=== PATIENT | male | born 1950 | race Caucasian/White ===

== ENCOUNTER → 2018-09-29 08:00 | Outpatient (REF) | payer MEDICARE, MEDICAID, SELFPAY ==
[2018-09-29 08:29] LABS: Add Manual Diff / Slide Review NO; Basophils Absolute Auto 100 /uL (0-100); Basophils Percent Auto 0.4 % (0-2); Eosinophils Absolute Auto 100 /uL (0-450); Eosinophils Percent Auto 0.4 % (2-4); Hematocrit 34.5 % (41-53); Hemoglobin 11.2 g/dL (13.5-17.5); Lymphocytes Absolute Auto 2300 /uL (1100-4500); Lymphocytes Percent Auto 12.5 % (25-40); Mean Corpuscular HGB Conc 32.6 % (30-36); Mean Corpuscular Hemoglobin 31.3 PG (26-34); Mean Corpuscular Volume 96.2 fL (80-100); Monocytes Absolute Auto 1600 /uL (0-900); Monocytes Percent Auto 8.6 % (3-14); Neutrophils Absolute Auto 14600 /uL (1500-7000); Neutrophils Percent Auto 78.1 % (50-75); Platelet Count 266 X10^3/uL (150-400); Red Blood Cell Count 3.58 X10^6/uL (4.5-5.9); Red Cell Distribution Width 15.4 % (11.6-14.8); White Blood Cell Count 18.7 X10^3/uL (4.5-11.0)
[2018-09-29 09:05] LABS: Prothrombin Time 11.1 SECONDS (10.1-12.7)
[2018-09-29 09:14] LABS: Alanine Aminotransferase 30 IU/L (21-72); Albumin 3.2 g/dL (3.5-5.0); Albumin Globulin Ratio 1.1 (1.0-2.8); Alkaline Phosphatase 77 U/L (38-126); Aspartate Aminotransferase 14 IU/L (17-59); Bilirubin Total 0.3 mg/dL (0.2-1.3); Blood Urea Nitrogen 12 mg/dL (9-20); Calcium 8.7 mg/dL (8.4-10.2); Carbon Dioxide 38 mmol/L (22-32); Chloride 96 mmol/L (98-107); Estimated Glomerular Filt Rate > 60.0 mL/min (>60); Globulin 2.9 g/dL (1.7-4.1); Glucose 141 mg/dL (80-110); HEMOLYSIS < 15 (0-50); Magnesium 1.5 mg/dL (1.6-2.3); Potassium 3.9 mmol/L (3.4-5.1); Sodium 138 mmol/L (137-145); Total Protein 6.1 g/dL (6.3-8.2)
== END ==
LOC: LAB 08:00
PROVIDERS: Visit Provider Nurse Practitioner Family
DX: K70.30 Alcoholic cirrhosis of liver without ascites (principal); J44.9 Chronic obstructive pulmonary disease, unspecified; Z79.899 Other long term (current) drug therapy
CPT/HCPCS: 36415; 80053; 83735; 85025; 85610

== ENCOUNTER 2018-09-30 10:12 | Inpatient (IN) | payer OTHER, MEDICAID, SELFPAY ==
[2018-09-30] VITALS (14 sets, daily range): BP systolic 114–146; BP diastolic 63–108; PULSE 82–98; RESP 10–30; TEMP 36.2–37.1; O2SAT 90–93; BMI 14.3
--- NOTE | 2018-09-30 10:24 | ED.SOB ---
HPI - SOB/Dyspnea General Chief Complaint: Shortness of Breath/Dyspnea Stated Complaint: Difficulty Breathing Time Seen by Provider: 09/30/18 10:22 Source: patient and EMS Mode of arrival: EMS Limitations: other (Difficulty breathing) History of Present Illness This is a 68-year-old male comes to the emergency department with difficulty breathing. Per EMS patient has had trouble breathing for the last several days but woke up this morning with much more difficulty. He was 82% at the [facility]. Patient states he is normally low in the 80s but this is quite a bit lower than normal. He was gurgly and had very wet cough. They placed him on BiPAP his breath sounds improved significantly and his oxygenation improved almost immediately. Patient has not had any fevers. He is unsure if he has had any orthopnea. He has noted that he has been short of breath. He has had a little bit of chest discomfort. Patient has not been having any vomiting or nausea. He has had some diarrhea recently. He has not had any swelling in his extremities. He has known COPD, states that he does not normally use oxygen. He has not been intubated in the past. He denies any cardiac history. There is some difficulty with history eyes patient on BiPAP still short of breath. He is feeling claustrophobic and sort of anxious from the BiPAP. Related Data Home Medications Medication Instructions Recorded Confirmed acetaminophen 650 mg PO Q4H PRN 09/30/18 09/30/18 albuterol sulfate 2 puff INHALATION Q4-6H PRN 09/30/18 09/30/18 aspirin 81 mg PO DAILY 09/30/18 09/30/18 atorvastatin 40 mg PO BEDTIME 09/30/18 09/30/18 bisacodyl 10 mg TX DAILY 09/30/18 09/30/18 cholecalciferol (vitamin D3) 2,000 unit PO DAILY 09/30/18 09/30/18 [Vitamin D3] diltiazem HCl 180 mg PO BID 09/30/18 09/30/18 doxazosin 4 mg PO DAILY 09/30/18 09/30/18 fludrocortisone 0.1 mg PO DAILY 09/30/18 09/30/18 ipratropium-albuterol 3 ml INHALATION Q4H PRN 09/30/18 09/30/18 losartan 25 mg PO DAILY 09/30/18 09/30/18 magnesium hydroxide [Milk of 30 ml PO BEDTIME PRN 09/30/18 09/30/18 Magnesia] mometasone-formoterol [Dulera] 2 puff INHALATION BID 09/30/18 09/30/18 morphine 15 mg PO Q8H 09/30/18 09/30/18 multivitamin 1 tab PO DAILY 09/30/18 09/30/18 pantoprazole 40 mg PO DAILY 09/30/18 09/30/18 paroxetine HCl [Paxil] 20 mg PO DAILY 09/30/18 09/30/18 sodium phosphates [Fleet Enema] 118 ml TX DAILY PRN 09/30/18 09/30/18 tamsulosin 0.4 mg PO DAILY 09/30/18 09/30/18 tiotropium bromide [Spiriva with 1 cap INHALATION DAILY 09/30/18 09/30/18 HandiHaler] Allergies Allergy/AdvReac Type Severity Reaction Status Date / Time No Known Drug Allergies Allergy Verified 09/30/18 10:40 Review of Systems Review of Systems ROS Unobtainable: All systems reviewed & are unremarkable except as noted in HPI and below Constitutional Denies chills and Denies fever(s) ENT Ears, Nose, Mouth, and Throat: Denies change in voice, Denies nasal congestion, Denies neck pain and Denies sore throat Cardiovascular Denies chest pain, Denies irregular heart rhythm, Denies leg edema, Denies lightheadedness, Denies palpitations, Reports dyspnea, Reports dyspnea on exertion and Denies orthopnea Respiratory Denies change in phlegm color, Reports chest congestion, Reports cough, Denies hemoptysis, Reports dyspnea and Reports dyspnea on exertion Gastrointestinal Gastrointestinal: Denies abdominal pain, Denies melena, Denies hematochezia, Denies change in bowel habits, Reports diarrhea, Denies nausea and Denies vomiting Genitourinary Denies hematuria, Denies flank pain, Denies urinary incontinence and Denies urinary urgency Musculoskeletal Denies neck pain Endocrine Denies palpitations PFSH Medical History Alcohol abuse (Acute) Alcoholic cirrhosis of liver without ascites (Acute) Anemia (Acute) Atrial fibrillation (Acute) BPH (benign prostatic hyperplasia) (Acute) COPD (chronic obstructive pulmonary disease) (Acute) Cardiomyopathy (Acute) Chronic pain (Acute) Constipation (Acute) Depression (Acute) Femur fracture, right (Acute) Hyperlipidemia (Acute) Hypertension (Acute) Osteoarthritis (Acute) Peripheral vascular disease (Acute) Social History Smoking Status: Current every day smoker alcohol intake: current Social History Smoking Status: Current every day smoker alcohol intake: current Exam Narrative Exam Narrative: GEN: Thin male, alert and oriented x 3, patient appears to be in severe distress. HEENT: Atraumatic, pupils are equal round reactive to light, extraocular movements are intact, nares are clear, TMs are clear with no fluid, there is no conjunctival pallor. Throat is clear without any exudates, erythema, tonsillar enlargement or uvular deviation HEART: Regular rate and rhythm without murmur, clicks, rubs. Pulses are equal in upper and lower extremities. No edema in bilateral lower extremity. LUNGS:Lungs clear to auscultation, no wheezes, rales, crackles, chest moves symmetrically ABD:bowel sounds normal, soft, non-tender, no guarding, rebound, rigidity, no masses noted, no hepatosplenomegaly :No CVA tenderness MSCL: Non-tender, no muscle atrophy, muscles strength 5/5 upper and lower extremities, full range of motion NEURO:CN 2-12 intact, sensation normal, reflexes 2/4 upper and lower extremities. Initial Vital Signs Initial Vital Signs: Vital Signs Temperature 97.2 F L 09/30/18 10:20 Pulse Rate 89 09/30/18 10:20 Respiratory Rate 30 H 09/30/18 10:20 Blood Pressure 123/88 09/30/18 10:20 Pulse Oximetry 92 09/30/18 10:20 Scores GCS June coma scale eye opening: Spontaneous June coma scale verbal response: Orientated June coma scale motor response: Obey commands June coma scale total score: 15 Course Orders Ordered: ED Orders 09/30/18 10:10 B Type Natriuretic Peptide Stat Basic Metabolic Panel Stat Complete Blood Count AUTO DIFF Stat Magnesium Stat Partial Thromboplastin Time Stat Prothrombin Time INR Stat Troponin & CK Cardiac Panel Stat 09/30/18 10:22 Consult to Respiratory Therapy Evaluate & Treat EKG-12 Lead Stat 09/30/18 10:23 XR chest 1V Stat 09/30/18 10:40 Lactate (Lactic Acid) Stat Procalcitonin Stat 09/30/18 11:14 Blood Culture Stat 09/30/18 12:18 Arterial Blood Gas Stat 09/30/18 12:54 Respiratory Panel (Film Array) Stat 09/30/18 13:59 Consult to Dietitian, Adult Routine Consult to Respiratory Therapy Evaluate & Treat 09/30/18 14:00 MRSA PCR Stat 09/30/18 14:34 RT Consult Eval and Treat Now Albuterol/Ipratropium (Duoneb) 3 ml INH RTQ4HR PRN PRN Reason: Shortness Of Breath Last Admin: 09/30/18 15:06 Dose: 3 ml Morphine Sulfate (Morphine) 4 mg IV Q6HR PRN PRN Reason: Pain, Severe (7-10) Ondansetron HCl (Zofran) 4 mg IV Q4HR PRN PRN Reason: Nausea And Vomiting Discontinued Medications Albuterol/Ipratropium (Duoneb) 3 ml INH RTQ4HR PRN PRN Reason: Shortness Of Breath Furosemide (Lasix) 40 mg IV NOW ONE Stop: 09/30/18 10:23 Last Admin: 09/30/18 10:41 Dose: 40 mg Levofloxacin (Levaquin) 750 mg in 150 mls @ 100 mls/hr IV NOW ONE Stop: 09/30/18 12:59 Last Infusion: 09/30/18 13:25 Dose: 0 mls/hr Infusion: 09/30/18 12:59 Dose: 100 mls/hr Admin: 09/30/18 11:42 Dose: 100 mls/hr Lorazepam (Ativan) 0.5 mg IV NOW ONE Stop: 09/30/18 10:23 Last Admin: 09/30/18 10:40 Dose: 0.5 mg Methylprednisolone (Solu-Medrol 125 Mg Vial) 125 mg IV NOW ONE Stop: 09/30/18 10:23 Last Admin: 09/30/18 10:41 Dose: 125 mg Morphine Sulfate (Morphine) 4 mg IV NOW ONE Stop: 09/30/18 11:34 Last Admin: 09/30/18 11:42 Dose: 4 mg Nitroglycerin (Nitro-Bid) 1 inch TOP NOW ONE Stop: 09/30/18 10:23 Last Admin: 09/30/18 10:41 Dose: 1 inch Vital Signs - 8 hr 09/30/18 10:20 09/30/18 10:30 09/30/18 10:31 Temperature 97.2 F L Pulse Rate 89 91 H Respiratory Rate 30 H 19 Blood Pressure 123/88 116/71 Blood Pressure [Right Arm] 116/71 Pulse Oximetry 92 92 09/30/18 10:41 09/30/18 11:00 09/30/18 11:30 Temperature Pulse Rate 82 89 98 H Respiratory Rate 24 18 Blood Pressure 116/71 Blood Pressure [Right Arm] 135/108 H 118/103 H Pulse Oximetry 90 L 91 09/30/18 11:48 09/30/18 12:21 09/30/18 12:30 Temperature Pulse Rate 95 H 94 H 96 H Respiratory Rate 18 20 Blood Pressure 118/103 H Blood Pressure [Right Arm] 127/63 145/79 H Pulse Oximetry 91 91 09/30/18 15:13 09/30/18 15:16 09/30/18 15:46 Temperature Pulse Rate 93 H 93 H Respiratory Rate 25 H Blood Pressure 121/66 146/81 H Blood Pressure [Right Arm] Pulse Oximetry 91 91 MDM - SOB/Dyspnea Differential Diagnosis Likely acute exacerbation of chronic obstructive airways disease, congestive heart failure, community acquired pneumonia and asthma with exacerbation Lab Data Attestation: I reviewed the patient's lab results. Result diagrams: 09/30/18 10:10 09/30/18 10:10 Lab Results 09/30/18 09/30/18 09/30/18 Range/Units 10:10 10:10 10:10 WBC 25.0 H (4.5-11.0) X10^3/uL RBC 3.66 L (4.5-5.9) X10^6/uL Hgb 11.7 L (13.5-17.5) g/dL Hct 35.2 L (41-53) % MCV 96.1 (80-100) fL MCH 32.0 (26-34) PG MCHC 33.3 (30-36) % RDW 15.3 H (11.6-14.8) % Plt Count 275 (150-400) X10^3/uL Neut % (Auto) 84.6 H (50-75) % Lymph % (Auto) 6.3 L (25-40) % [place] % (Auto) 8.8 (3-14) % Eos % (Auto) 0.1 L (2-4) % Baso % (Auto) 0.2 (0-2) % Neut # (Auto) 60772 H (2815-7862) /uL Lymph # (Auto) 1600 (8646-3956) /uL [place] # (Auto) 2200 H (0-900) /uL Eos # (Auto) 0 (0-450) /uL Baso # (Auto) 0 (0-100) /uL PT 10.5 (10.1-12.7) SECONDS INR 0.9 (0.9-1.3) APTT 28 (26.4-36.2) SECONDS ABG pH (7.35-7.45) ABG pCO2 (35-45) mmHg ABG pO2 (80-100) mmHg ABG HCO3 (22-26) mmol/L ABG Total CO2 (21-31) mmol/L ABG O2 Saturation (95-100) % ABG Base Excess (-2-2) mmol/L FiO2 Sodium 141 (137-145) mmol/L Potassium 4.3 (3.4-5.1) mmol/L Chloride 97 L (98-107) mmol/L Carbon Dioxide 36 H (22-32) mmol/L BUN 14 (9-20) mg/dL Creatinine 0.40 L (0.66-1.25) mg/dL Estimated GFR > 60.0 (>60) mL/min BUN/Creatinine Ratio 35.0 H (6-22) Glucose 166 H (80-110) mg/dL Lactate (0.7-2.1) mmol/L Calcium 9.2 (8.4-10.2) mg/dL Magnesium 1.9 (1.6-2.3) mg/dL Total Creatine Kinase 67 (55-170) U/L CK-MB (CK-2) TNP CK-MB (CK-2) Rel Index TNP Troponin I < 0.012 (0.01-0.034) ng/mL B-Natriuretic Peptide < 100 (<100) Procalcitonin (<0.5) ng/mL Nasal Screen MRSA (PCR) (Negative) Chlamy pneumoniae PCR (Not Detect) Adenovirus (PCR) (Not Detect) B.parapertussis DNA PCR (Not Detect) Coronavirus OC43 (PCR) (Not Detect) Coronavirus HKU1 (PCR) (Not Detect) Coronavirus 229E (PCR) (Not Detect) Coronavirus NL63 (PCR) (Not Detect) Human Metapneumovir PCR (Not Detect) Influenza Type A (PCR) (Not Detect) Influenza Type B (PCR) (Not Detect) M. pneumoniae (PCR) (Not Detect) Parainfluenza 1 (PCR) (Not Detect) Parainfluenza 2 (PCR) (Not Detect) Parainfluenza 3 (PCR) (Not Detect) Parainfluenza 4 (PCR) (Not Detect) RSV (PCR) (Not Detect) Entero/Rhino (PCR) (Not Detect) 09/30/18 09/30/18 09/30/18 Range/Units 10:40 10:40 12:18 WBC (4.5-11.0) X10^3/uL RBC (4.5-5.9) X10^6/uL Hgb (13.5-17.5) g/dL Hct (41-53) % MCV (80-100) fL MCH (26-34) PG MCHC (30-36) % RDW (11.6-14.8) % Plt Count (150-400) X10^3/uL Neut % (Auto) (50-75) % Lymph % (Auto) (25-40) % [place] % (Auto) (3-14) % Eos % (Auto) (2-4) % Baso % (Auto) (0-2) % Neut # (Auto) (4443-3054) /uL Lymph # (Auto) (2126-6711) /uL [place] # (Auto) (0-900) /uL Eos # (Auto) (0-450) /uL Baso # (Auto) (0-100) /uL PT (10.1-12.7) SECONDS INR (0.9-1.3) APTT (26.4-36.2) SECONDS ABG pH 7.39 (7.35-7.45) ABG pCO2 61.3 H* (35-45) mmHg ABG pO2 75 L (80-100) mmHg ABG HCO3 37 H (22-26) mmol/L ABG Total CO2 39 H (21-31) mmol/L ABG O2 Saturation 94 L (95-100) % ABG Base Excess 12.0 H (-2-2) mmol/L FiO2 2 Sodium (137-145) mmol/L Potassium (3.4-5.1) mmol/L Chloride (98-107) mmol/L Carbon Dioxide (22-32) mmol/L BUN (9-20) mg/dL Creatinine (0.66-1.25) mg/dL Estimated GFR (>60) mL/min BUN/Creatinine Ratio (6-22) Glucose (80-110) mg/dL Lactate 1.1 (0.7-2.1) mmol/L Calcium (8.4-10.2) mg/dL Magnesium (1.6-2.3) mg/dL Total Creatine Kinase (55-170) U/L CK-MB (CK-2) CK-MB (CK-2) Rel Index Troponin I (0.01-0.034) ng/mL B-Natriuretic Peptide (<100) Procalcitonin 0.11 (<0.5) ng/mL Nasal Screen MRSA (PCR) (Negative) Chlamy pneumoniae PCR (Not Detect) Adenovirus (PCR) (Not Detect) B.parapertussis DNA PCR (Not Detect) Coronavirus OC43 (PCR) (Not Detect) Coronavirus HKU1 (PCR) (Not Detect) Coronavirus 229E (PCR) (Not Detect) Coronavirus NL63 (PCR) (Not Detect) Human Metapneumovir PCR (Not Detect) Influenza Type A (PCR) (Not Detect) Influenza Type B (PCR) (Not Detect) M. pneumoniae (PCR) (Not Detect) Parainfluenza 1 (PCR) (Not Detect) Parainfluenza 2 (PCR) (Not Detect) Parainfluenza 3 (PCR) (Not Detect) Parainfluenza 4 (PCR) (Not Detect) RSV (PCR) (Not Detect) Entero/Rhino (PCR) (Not Detect) 09/30/18 09/30/18 Range/Units 12:54 14:00 WBC (4.5-11.0) X10^3/uL RBC (4.5-5.9) X10^6/uL Hgb (13.5-17.5) g/dL Hct (41-53) % MCV (80-100) fL MCH (26-34) PG MCHC (30-36) % RDW (11.6-14.8) % Plt Count (150-400) X10^3/uL Neut % (Auto) (50-75) % Lymph % (Auto) (25-40) % [place] % (Auto) (3-14) % Eos % (Auto) (2-4) % Baso % (Auto) (0-2) % Neut # (Auto) (6506-2835) /uL Lymph # (Auto) (4199-5278) /uL [place] # (Auto) (0-900) /uL Eos # (Auto) (0-450) /uL Baso # (Auto) (0-100) /uL PT (10.1-12.7) SECONDS INR (0.9-1.3) APTT (26.4-36.2) SECONDS ABG pH (7.35-7.45) ABG pCO2 (35-45) mmHg ABG pO2 (80-100) mmHg ABG HCO3 (22-26) mmol/L ABG Total CO2 (21-31) mmol/L ABG O2 Saturation (95-100) % ABG Base Excess (-2-2) mmol/L FiO2 Sodium (137-145) mmol/L Potassium (3.4-5.1) mmol/L Chloride (98-107) mmol/L Carbon Dioxide (22-32) mmol/L BUN (9-20) mg/dL Creatinine (0.66-1.25) mg/dL Estimated GFR (>60) mL/min BUN/Creatinine Ratio (6-22) Glucose (80-110) mg/dL Lactate (0.7-2.1) mmol/L Calcium (8.4-10.2) mg/dL Magnesium (1.6-2.3) mg/dL Total Creatine Kinase (55-170) U/L CK-MB (CK-2) CK-MB (CK-2) Rel Index Troponin I (0.01-0.034) ng/mL B-Natriuretic Peptide (<100) Procalcitonin (<0.5) ng/mL Nasal Screen MRSA (PCR) Positive for mrsa H (Negative) Chlamy pneumoniae PCR Not detected (Not Detect) Adenovirus (PCR) Not detected (Not Detect) B.parapertussis DNA PCR Not detected (Not Detect) Coronavirus OC43 (PCR) Not detected (Not Detect) Coronavirus HKU1 (PCR) Not detected (Not Detect) Coronavirus 229E (PCR) Not detected (Not Detect) Coronavirus NL63 (PCR) Not detected (Not Detect) Human Metapneumovir PCR Not detected (Not Detect) Influenza Type A (PCR) Not detected (Not Detect) Influenza Type B (PCR) Not detected (Not Detect) M. pneumoniae (PCR) Not detected (Not Detect) Parainfluenza 1 (PCR) Not detected (Not Detect) Parainfluenza 2 (PCR) Not detected (Not Detect) Parainfluenza 3 (PCR) Not detected (Not Detect) Parainfluenza 4 (PCR) Not detected (Not Detect) RSV (PCR) Not detected (Not Detect) Entero/Rhino (PCR) Not detected (Not Detect) Urine Dip Bedside Urine Glucose Negative Bedside Urine Bilirubin - Negative Bedside Urine Ketone - Negative Urine Specific [place] 1.015 Bedside Urine Occult Blood - Negative Bedside Urine pH 6.0 Bedside Urine Protein - Negative Bedside Urine Urobilinogen - Negative Bedside Urine Nitrite - Negative Bedside Urine Leukocytes - Negative Esterase ABG Data ABG results: ABG shows a pH of 7.3 8 8, pCO2 of 61 and PO2 of 75 bicarb of 36, ABG shows a compensated respiratory acidosis with metabolic alkalosis. Imaging Data Chest x-ray: Attestation: I personally reviewed and interpreted this imaging study as follows: Radiologist's impression: [address] [id number] XRay Report Signed Patient: NATASHA MONK#: [id number] : 2Acct:[id number] Age/Sex: 68 / MDate of Service: 09/30/18 Loc: ED Accession Number: [id number] Procedure: XR chest 1V Ordering Provider: Heidi Najera D.O. PROCEDURE: XR CHEST 1V INDICATIONS: Short of breath TECHNIQUE: One view of the chest was acquired. COMPARISON: None. FINDINGS: Surgical changes and devices: None. Lungs and pleura: Interstitial prominence is seen. The lungs are hyperexpanded. No pleural effusions or pneumothorax. Mediastinum: The cardiac contours are within normal limits. The aorta demonstrates calcification and tortuosity. Bones and chest wall: No suspicious bony lesions. Age-appropriate bony degenerative changes are seen. Overlying soft tissues appear unremarkable. IMPRESSION: Interstitial prominence is seen throughout. The interstitial prominence is nonspecific, yet may be related to pulmonary edema. The lungs are hyperexpanded. Dictated by: Surya Cartagena M.D. on 09/30/2018 at 10:06 Approved by: Surya Cartagena M.D. on 09/30/2018 at 10:07 ECG Data Attestation: I personally reviewed and interpreted this ECG as follows: Interpretation: Sinus rhythm with rate of 83, pr of 199, qrs of 87, qtc 369. No clear ST changes are appreciated. EKG is stating ST elevation in she and he although patient does have significant artifact from motion from Bipap. MDM Narrative Medical decision making narrative: Initially concern for congestive heart failure, chest x-ray shows possible pulmonary edema but not clearly, BNP is less than 100. Patient did diurese quite a bit with Lasix. He does have a history of COPD he is not very wheezy but does improve with BiPAP. He did receive 1 number in route. Patient was given Solu-Medrol here in the department. White count is elevated 25 and appears increasing from yesterday. It does not appear that he is chronically on prednisone. He does have a history of adrenal insufficiency but does not show any signs of adrenal crisis at this time. Spoke with Dr. Loaiza who accepts. ABg is pending at this time, she requests that we order procalcitonin as well as respiratory panel. Patient blood pressure was elevated overtime and appeared quite uncomfortable on bipap. Weaned from bipap and oxygenaion continues to be appropriate based on past history. Hypertension almost immediately improved. ABG while on bipap shows compensated respiratory acidosis with metabolic alkalosis. Patient transfered to ICU. Suspect COPD exacerbation although started on first dose of antibiotics in department. Discharge Plan Departure Patient Disposition: Admitted as Observation Clinical Impression: Acute exacerbation of chronic obstructive airways disease Discharge Date/Time: 09/30/18 13:00 Interventions: ED Discharge Assessment Last Done: 09/30/18 13:02 Admit Date/Time: 09/30/18 12:45 Admit Provider: Jenny Loaiza
[2018-09-30 10:35] LABS: INR 0.9 (0.9-1.3); Prothrombin Time 10.5 SECONDS (10.1-12.7)
--- NOTE | 2018-09-30 10:35 | ED_ITS ---
HPI - SOB/Dyspnea General Chief Complaint: Shortness of Breath/Dyspnea Stated Complaint: Difficulty Breathing Time Seen by Provider: 09/30/18 10:22 Source: patient and EMS Mode of arrival: EMS Limitations: other (Difficulty breathing) History of Present Illness This is a 68-year-old male comes to the emergency department with difficulty br eathing. Per EMS patient has had trouble breathing for the last several days but woke up this morning with much more difficulty. He was 82% at the [facility]. Patient states he is normally low in the 80s but this is quite a bit lower than normal. He was gurgly and had very wet cough. They placed him on BiPAP his breath sounds improved significantly and his oxygenation improved almost immediately. Patient has not had any fevers. He is unsure if he has had any orthopnea. He has noted that he has been short of breath. He has had a little bit of chest discomfort. Patient has not been having any vomiting or nausea. He has had some diarrhea recently. He has not had any swelling in his extremities. He has known COPD, states that he does not normally use oxygen. He has not been intubated in the past. He denies any cardiac history. There is some difficulty with history eyes patient on BiPAP still short of breath. He is feeling claustrophobic and sort of anxious from the BiPAP. Related Data Home Medications Medication Instructions Recorded Confirmed acetaminophen 650 mg PO Q4H PRN 09/30/18 09/30/18 albuterol sulfate 2 puff INHALATION Q4-6H PRN 09/30/18 09/30/18 aspirin 81 mg PO DAILY 09/30/18 09/30/18 atorvastatin 40 mg PO BEDTIME 09/30/18 09/30/18 bisacodyl 10 mg VT DAILY 09/30/18 09/30/18 cholecalciferol (vitamin D3) 2,000 unit PO DAILY 09/30/18 09/30/18 [Vitamin D3] diltiazem HCl 180 mg PO BID 09/30/18 09/30/18 doxazosin 4 mg PO DAILY 09/30/18 09/30/18 fludrocortisone 0.1 mg PO DAILY 09/30/18 09/30/18 ipratropium-albuterol 3 ml INHALATION Q4H PRN 09/30/18 09/30/18 losartan 25 mg PO DAILY 09/30/18 09/30/18 magnesium hydroxide [Milk of 30 ml PO BEDTIME PRN 09/30/18 09/30/18 Magnesia] mometasone-formoterol [Dulera] 2 puff INHALATION BID 09/30/18 09/30/18 morphine 15 mg PO Q8H 09/30/18 09/30/18 multivitamin 1 tab PO DAILY 09/30/18 09/30/18 pantoprazole 40 mg PO DAILY 09/30/18 09/30/18 paroxetine HCl [Paxil] 20 mg PO DAILY 09/30/18 09/30/18 sodium phosphates [Fleet Enema] 118 ml VT DAILY PRN 09/30/18 09/30/18 tamsulosin 0.4 mg PO DAILY 09/30/18 09/30/18 tiotropium bromide [Spiriva with 1 cap INHALATION DAILY 09/30/18 09/30/18 HandiHaler] Allergies Allergy/AdvReac Type Severity Reaction Status Date / Time No Known Drug Allergies Allergy Verified 09/30/18 10:40 Review of Systems Review of Systems ROS Unobtainable: All systems reviewed & are unremarkable except as noted in HPI and below Constitutional Denies chills and Denies fever(s) ENT Ears, Nose, Mouth, and Throat: Denies change in voice, Denies nasal congestion, Denies neck pain and Denies sore throat Cardiovascular Denies chest pain, Denies irregular heart rhythm, Denies leg edema, Denies lightheadedness, Denies palpitations, Reports dyspnea, Reports dyspnea on exertion and Denies orthopnea Respiratory Denies change in phlegm color, Reports chest congestion, Reports cough, Denies hemoptysis, Reports dyspnea and Reports dyspnea on exertion Gastrointestinal Gastrointestinal: Denies abdominal pain, Denies melena, Denies hematochezia, Denies change in bowel habits, Reports diarrhea, Denies nausea and Denies vomiting Genitourinary Denies hematuria, Denies flank pain, Denies urinary incontinence and Denies urinary urgency Musculoskeletal Denies neck pain Endocrine Denies palpitations PFSH Medical History Alcohol abuse (Acute) Alcoholic cirrhosis of liver without ascites (Acute) Anemia (Acute) Atrial fibrillation (Acute) BPH (benign prostatic hyperplasia) (Acute) COPD (chronic obstructive pulmonary disease) (Acute) Cardiomyopathy (Acute) Chronic pain (Acute) Constipation (Acute) Depression (Acute) Femur fracture, right (Acute) Hyperlipidemia (Acute) Hypertension (Acute) Osteoarthritis (Acute) Peripheral vascular disease (Acute) Social History Smoking Status: Current every day smoker alcohol intake: current Social History Smoking Status: Current every day smoker alcohol intake: current Exam Narrative Exam Narrative: GEN: Thin male, alert and oriented x 3, patient appears to be in severe distress. HEENT: Atraumatic, pupils are equal round reactive to light, extraocular movements are intact, nares are clear, TMs are clear with no fluid, there is no conjunctival pallor. Throat is clear without any exudates, erythema, tonsillar enlargement or uvular deviation HEART: Regular rate and rhythm without murmur, clicks, rubs. Pulses are equal in upper and lower extremities. No edema in bilateral lower extremity. LUNGS:Lungs clear to auscultation, no wheezes, rales, crackles, chest moves symmetrically ABD:bowel sounds normal, soft, non-tender, no guarding, rebound, rigidity, no masses noted, no hepatosplenomegaly :No CVA tenderness MSCL: Non-tender, no muscle atrophy, muscles strength 5/5 upper and lower extremities, full range of motion NEURO:CN 2-12 intact, sensation normal, reflexes 2/4 upper and lower extremities. Initial Vital Signs Initial Vital Signs: Vital Signs Temperature 97.2 F L 09/30/18 10:20 Pulse Rate 89 09/30/18 10:20 Respiratory Rate 30 H 09/30/18 10:20 Blood Pressure 123/88 09/30/18 10:20 Pulse Oximetry 92 09/30/18 10:20 Scores GCS June coma scale eye opening: Spontaneous Wisdom coma scale verbal response: Orientated June coma scale motor response: Obey commands June coma scale total score: 15 Course Orders Ordered: ED Orders 09/30/18 10:10 B Type Natriuretic Peptide Stat Basic Metabolic Panel Stat Complete Blood Count AUTO DIFF Stat Magnesium Stat Partial Thromboplastin Time Stat Prothrombin Time INR Stat Troponin & CK Cardiac Panel Stat 09/30/18 10:22 Consult to Respiratory Therapy Evaluate & Treat EKG-12 Lead Stat 09/30/18 10:23 XR chest 1V Stat 09/30/18 10:40 Lactate (Lactic Acid) Stat Procalcitonin Stat 09/30/18 11:14 Blood Culture Stat 09/30/18 12:18 Arterial Blood Gas Stat 09/30/18 12:54 Respiratory Panel (Film Array) Stat 09/30/18 13:59 Consult to Dietitian, Adult Routine Consult to Respiratory Therapy Evaluate & Treat 09/30/18 14:00 MRSA PCR Stat 09/30/18 14:34 RT Consult Eval and Treat Now Albuterol/Ipratropium (Duoneb) 3 ml INH RTQ4HR PRN PRN Reason: Shortness Of Breath Last Admin: 09/30/18 15:06 Dose: 3 ml Morphine Sulfate (Morphine) 4 mg IV Q6HR PRN PRN Reason: Pain, Severe (7-10) Ondansetron HCl (Zofran) 4 mg IV Q4HR PRN PRN Reason: Nausea And Vomiting Discontinued Medications Albuterol/Ipratropium (Duoneb) 3 ml INH RTQ4HR PRN PRN Reason: Shortness Of Breath Furosemide (Lasix) 40 mg IV NOW ONE Stop: 09/30/18 10:23 Last Admin: 09/30/18 10:41 Dose: 40 mg Levofloxacin (Levaquin) 750 mg in 150 mls @ 100 mls/hr IV NOW ONE Stop: 09/30/18 12:59 Last Infusion: 09/30/18 13:25 Dose: 0 mls/hr Infusion: 09/30/18 12:59 Dose: 100 mls/hr Admin: 09/30/18 11:42 Dose: 100 mls/hr Lorazepam (Ativan) 0.5 mg IV NOW ONE Stop: 09/30/18 10:23 Last Admin: 09/30/18 10:40 Dose: 0.5 mg Methylprednisolone (Solu-Medrol 125 Mg Vial) 125 mg IV NOW ONE Stop: 09/30/18 10:23 Last Admin: 09/30/18 10:41 Dose: 125 mg Morphine Sulfate (Morphine) 4 mg IV NOW ONE Stop: 09/30/18 11:34 Last Admin: 09/30/18 11:42 Dose: 4 mg Nitroglycerin (Nitro-Bid) 1 inch TOP NOW ONE Stop: 09/30/18 10:23 Last Admin: 09/30/18 10:41 Dose: 1 inch Vital Signs - 8 hr 09/30/18 10:20 09/30/18 10:30 09/30/18 10:31 Temperature 97.2 F L Pulse Rate 89 91 H Respiratory Rate 30 H 19 Blood Pressure 123/88 116/71 Blood Pressure [Right Arm] 116/71 Pulse Oximetry 92 92 09/30/18 10:41 09/30/18 11:00 09/30/18 11:30 Temperature Pulse Rate 82 89 98 H Respiratory Rate 24 18 Blood Pressure 116/71 Blood Pressure [Right Arm] 135/108 H 118/103 H Pulse Oximetry 90 L 91 09/30/18 11:48 09/30/18 12:21 09/30/18 12:30 Temperature Pulse Rate 95 H 94 H 96 H Respiratory Rate 18 20 Blood Pressure 118/103 H Blood Pressure [Right Arm] 127/63 145/79 H Pulse Oximetry 91 91 09/30/18 15:13 09/30/18 15:16 09/30/18 15:46 Temperature Pulse Rate 93 H 93 H Respiratory Rate 25 H Blood Pressure 121/66 146/81 H Blood Pressure [Right Arm] Pulse Oximetry 91 91 MDM - SOB/Dyspnea Differential Diagnosis Likely acute exacerbation of chronic obstructive airways disease, congestive heart failure, community acquired pneumonia and asthma with exacerbation Lab Data Attestation: I reviewed the patient's lab results. Result diagrams: 09/30/18 10:10 09/30/18 10:10 Lab Results 09/30/18 09/30/18 09/30/18 Range/Units 10:10 10:10 10:10 WBC 25.0 H (4.5-11.0) X10^3/uL RBC 3.66 L (4.5-5.9) X10^6/uL Hgb 11.7 L (13.5-17.5) g/dL Hct 35.2 L (41-53) % MCV 96.1 (80-100) fL MCH 32.0 (26-34) PG MCHC 33.3 (30-36) % RDW 15.3 H (11.6-14.8) % Plt Count 275 (150-400) X10^3/uL Neut % (Auto) 84.6 H (50-75) % Lymph % (Auto) 6.3 L (25-40) % [place] % (Auto) 8.8 (3-14) % Eos % (Auto) 0.1 L (2-4) % Baso % (Auto) 0.2 (0-2) % Neut # (Auto) 85050 H (2777-8434) /uL Lymph # (Auto) 1600 (2708-5610) /uL [place] # (Auto) 2200 H (0-900) /uL Eos # (Auto) 0 (0-450) /uL Baso # (Auto) 0 (0-100) /uL PT 10.5 (10.1-12.7) SECONDS INR 0.9 (0.9-1.3) APTT 28 (26.4-36.2) SECONDS ABG pH (7.35-7.45) ABG pCO2 (35-45) mmHg ABG pO2 (80-100) mmHg ABG HCO3 (22-26) mmol/L ABG Total CO2 (21-31) mmol/L ABG O2 Saturation (95-100) % ABG Base Excess (-2-2) mmol/L FiO2 Sodium 141 (137-145) mmol/L Potassium 4.3 (3.4-5.1) mmol/L Chloride 97 L (98-107) mmol/L Carbon Dioxide 36 H (22-32) mmol/L BUN 14 (9-20) mg/dL Creatinine 0.40 L (0.66-1.25) mg/dL Estimated GFR > 60.0 (>60) mL/min BUN/Creatinine Ratio 35.0 H (6-22) Glucose 166 H (80-110) mg/dL Lactate (0.7-2.1) mmol/L Calcium 9.2 (8.4-10.2) mg/dL Magnesium 1.9 (1.6-2.3) mg/dL Total Creatine Kinase 67 (55-170) U/L CK-MB (CK-2) TNP CK-MB (CK-2) Rel Index TNP Troponin I < 0.012 (0.01-0.034) ng/mL B-Natriuretic Peptide < 100 (<100) Procalcitonin (<0.5) ng/mL Nasal Screen MRSA (PCR) (Negative) Chlamy pneumoniae PCR (Not Detect) Adenovirus (PCR) (Not Detect) B.parapertussis DNA PCR (Not Detect) Coronavirus OC43 (PCR) (Not Detect) Coronavirus HKU1 (PCR) (Not Detect) Coronavirus 229E (PCR) (Not Detect) Coronavirus NL63 (PCR) (Not Detect) Human Metapneumovir PCR (Not Detect) Influenza Type A (PCR) (Not Detect) Influenza Type B (PCR) (Not Detect) M. pneumoniae (PCR) (Not Detect) Parainfluenza 1 (PCR) (Not Detect) Parainfluenza 2 (PCR) (Not Detect) Parainfluenza 3 (PCR) (Not Detect) Parainfluenza 4 (PCR) (Not Detect) RSV (PCR) (Not Detect) Entero/Rhino (PCR) (Not Detect) 09/30/18 09/30/18 09/30/18 Range/Units 10:40 10:40 12:18 WBC (4.5-11.0) X10^3/uL RBC (4.5-5.9) X10^6/uL Hgb (13.5-17.5) g/dL Hct (41-53) % MCV (80-100) fL MCH (26-34) PG MCHC (30-36) % RDW (11.6-14.8) % Plt Count (150-400) X10^3/uL Neut % (Auto) (50-75) % Lymph % (Auto) (25-40) % [place] % (Auto) (3-14) % Eos % (Auto) (2-4) % Baso % (Auto) (0-2) % Neut # (Auto) (1736-8190) /uL Lymph # (Auto) (8568-4720) /uL [place] # (Auto) (0-900) /uL Eos # (Auto) (0-450) /uL Baso # (Auto) (0-100) /uL PT (10.1-12.7) SECONDS INR (0.9-1.3) APTT (26.4-36.2) SECONDS ABG pH 7.39 (7.35-7.45) ABG pCO2 61.3 H* (35-45) mmHg ABG pO2 75 L (80-100) mmHg ABG HCO3 37 H (22-26) mmol/L ABG Total CO2 39 H (21-31) mmol/L ABG O2 Saturation 94 L (95-100) % ABG Base Excess 12.0 H (-2-2) mmol/L FiO2 2 Sodium (137-145) mmol/L Potassium (3.4-5.1) mmol/L Chloride (98-107) mmol/L Carbon Dioxide (22-32) mmol/L BUN (9-20) mg/dL Creatinine (0.66-1.25) mg/dL Estimated GFR (>60) mL/min BUN/Creatinine Ratio (6-22) Glucose (80-110) mg/dL Lactate 1.1 (0.7-2.1) mmol/L Calcium (8.4-10.2) mg/dL Magnesium (1.6-2.3) mg/dL Total Creatine Kinase (55-170) U/L CK-MB (CK-2) CK-MB (CK-2) Rel Index Troponin I (0.01-0.034) ng/mL B-Natriuretic Peptide (<100) Procalcitonin 0.11 (<0.5) ng/mL Nasal Screen MRSA (PCR) (Negative) Chlamy pneumoniae PCR (Not Detect) Adenovirus (PCR) (Not Detect) B.parapertussis DNA PCR (Not Detect) Coronavirus OC43 (PCR) (Not Detect) Coronavirus HKU1 (PCR) (Not Detect) Coronavirus 229E (PCR) (Not Detect) Coronavirus NL63 (PCR) (Not Detect) Human Metapneumovir PCR (Not Detect) Influenza Type A (PCR) (Not Detect) Influenza Type B (PCR) (Not Detect) M. pneumoniae (PCR) (Not Detect) Parainfluenza 1 (PCR) (Not Detect) Parainfluenza 2 (PCR) (Not Detect) Parainfluenza 3 (PCR) (Not Detect) Parainfluenza 4 (PCR) (Not Detect) RSV (PCR) (Not Detect) Entero/Rhino (PCR) (Not Detect) 09/30/18 09/30/18 Range/Units 12:54 14:00 WBC (4.5-11.0) X10^3/uL RBC (4.5-5.9) X10^6/uL Hgb (13.5-17.5) g/dL Hct (41-53) % MCV (80-100) fL MCH (26-34) PG MCHC (30-36) % RDW (11.6-14.8) % Plt Count (150-400) X10^3/uL Neut % (Auto) (50-75) % Lymph % (Auto) (25-40) % [place] % (Auto) (3-14) % Eos % (Auto) (2-4) % Baso % (Auto) (0-2) % Neut # (Auto) (4165-3212) /uL Lymph # (Auto) (4140-0247) /uL [place] # (Auto) (0-900) /uL Eos # (Auto) (0-450) /uL Baso # (Auto) (0-100) /uL PT (10.1-12.7) SECONDS INR (0.9-1.3) APTT (26.4-36.2) SECONDS ABG pH (7.35-7.45) ABG pCO2 (35-45) mmHg ABG pO2 (80-100) mmHg ABG HCO3 (22-26) mmol/L ABG Total CO2 (21-31) mmol/L ABG O2 Saturation (95-100) % ABG Base Excess (-2-2) mmol/L FiO2 Sodium (137-145) mmol/L Potassium (3.4-5.1) mmol/L Chloride (98-107) mmol/L Carbon Dioxide (22-32) mmol/L BUN (9-20) mg/dL Creatinine (0.66-1.25) mg/dL Estimated GFR (>60) mL/min BUN/Creatinine Ratio (6-22) Glucose (80-110) mg/dL Lactate (0.7-2.1) mmol/L Calcium (8.4-10.2) mg/dL Magnesium (1.6-2.3) mg/dL Total Creatine Kinase (55-170) U/L CK-MB (CK-2) CK-MB (CK-2) Rel Index Troponin I (0.01-0.034) ng/mL B-Natriuretic Peptide (<100) Procalcitonin (<0.5) ng/mL Nasal Screen MRSA (PCR) Positive for mrsa H (Negative) Chlamy pneumoniae PCR Not detected (Not Detect) Adenovirus (PCR) Not detected (Not Detect) B.parapertussis DNA PCR Not detected (Not Detect) Coronavirus OC43 (PCR) Not detected (Not Detect) Coronavirus HKU1 (PCR) Not detected (Not Detect) Coronavirus 229E (PCR) Not detected (Not Detect) Coronavirus NL63 (PCR) Not detected (Not Detect) Human Metapneumovir PCR Not detected (Not Detect) Influenza Type A (PCR) Not detected (Not Detect) Influenza Type B (PCR) Not detected (Not Detect) M. pneumoniae (PCR) Not detected (Not Detect) Parainfluenza 1 (PCR) Not detected (Not Detect) Parainfluenza 2 (PCR) Not detected (Not Detect) Parainfluenza 3 (PCR) Not detected (Not Detect) Parainfluenza 4 (PCR) Not detected (Not Detect) RSV (PCR) Not detected (Not Detect) Entero/Rhino (PCR) Not detected (Not Detect) Urine Dip Bedside Urine Glucose Negative Bedside Urine Bilirubin - Negative Bedside Urine Ketone - Negative Urine Specific [place] 1.015 Bedside Urine Occult Blood - Negative Bedside Urine pH 6.0 Bedside Urine Protein - Negative Bedside Urine Urobilinogen - Negative Bedside Urine Nitrite - Negative Bedside Urine Leukocytes - Negative Esterase ABG Data ABG results: ABG shows a pH of 7.3 8 8, pCO2 of 61 and PO2 of 75 bicarb of 36, ABG shows a compensated respiratory acidosis with metabolic alkalosis. Imaging Data Chest x-ray: Attestation: I personally reviewed and interpreted this imaging study as follows: Radiologist's impression: [place] [address] XRay Report Signed Patient: AGA MONKMR#: [id number] : 2Acct:[id number] Age/Sex: 68 / MDate of Service: 09/30/18 Loc: ED Accession Number: [id number] Procedure: XR chest 1V Ordering Provider: Heidi Najera D.O. PROCEDURE: XR CHEST 1V INDICATIONS: Short of breath TECHNIQUE: One view of the chest was acquired. COMPARISON: None. FINDINGS: Surgical changes and devices: None. Lungs and pleura: Interstitial prominence is seen. The lungs are hyperexpanded. No pleural effusions or pneumothorax. Mediastinum: The cardiac contours are within normal limits. The aorta demonstrates calcification and tortuosity. Bones and chest wall: No suspicious bony lesions. Age-appropriate bony degenerative changes are seen. Overlying soft tissues appear unremarkable. IMPRESSION: Interstitial prominence is seen throughout. The interstitial prominence is nonspecific, yet may be related to pulmonary edema. The lungs are hyperexpanded. Dictated by: Surya Cartagena M.D. on 09/30/2018 at 10:06 Approved by: Surya Cartagena M.D. on 09/30/2018 at 10:07 ECG Data Attestation: I personally reviewed and interpreted this ECG as follows: Interpretation: Sinus rhythm with rate of 83, pr of 199, qrs of 87, qtc 369. No clear ST changes are appreciated. EKG is stating ST elevation in she and he although patient does have significant artifact from motion from Bipap. MDM Narrative Medical decision making narrative: Initially concern for congestive heart failure, chest x-ray shows possible pulmonary edema but not clearly, BNP is less than 100. Patient did diurese quite a bit with Lasix. He does have a history of COPD he is not very wheezy but does improve with BiPAP. He did receive 1 number in route. Patient was given Solu-Medrol here in the department. White count is elevated 25 and appears increasing from yesterday. It does not appear that he is chronically on prednisone. He does have a history of adrenal insufficiency but does not show any signs of adrenal crisis at this time. Spoke with Dr. Loaiza who accepts. ABg is pending at this time, she requests that we order procalcitonin as well as respiratory panel. Patient blood pressure was elevated overtime and appeared quite uncomfortable on bipap. Weaned from bipap and oxygenaion continues to be appropriate based on pa st history. Hypertension almost immediately improved. ABG while on bipap shows compensated respiratory acidosis with metabolic alkalosis. Patient transfered to ICU. Suspect COPD exacerbation although started on first dose of antibiotics in department. Discharge Plan Departure Patient Disposition: Admitted as Observation Clinical Impression: Acute exacerbation of chronic obstructive airways disease Discharge Date/Time: 09/30/18 13:00 Interventions: ED Discharge Assessment Last Done: 09/30/18 13:02 Admit Date/Time: 09/30/18 12:45 Admit Provider: Jenny Loaiza
[2018-09-30 10:37] LABS: PTT Partial Thromboplastin Tim 28 SECONDS (26.4-36.2)
[2018-09-30 10:39] LABS: Add Manual Diff / Slide Review NO; Basophils Absolute Auto 0 /uL (0-100); Basophils Percent Auto 0.2 % (0-2); Blood Urea Nitrogen 14 mg/dL (9-20); Calcium 9.2 mg/dL (8.4-10.2); Carbon Dioxide 36 mmol/L (22-32); Chloride 97 mmol/L (98-107); Creatine Kinase 67 U/L (55-170); Eosinophils Absolute Auto 0 /uL (0-450); Eosinophils Percent Auto 0.1 % (2-4); Estimated Glomerular Filt Rate > 60.0 mL/min (>60); Glucose 166 mg/dL (80-110); HEMOLYSIS < 15 (0-50); Hematocrit 35.2 % (41-53); Hemoglobin 11.7 g/dL (13.5-17.5); Lymphocytes Absolute Auto 1600 /uL (1100-4500); Lymphocytes Percent Auto 6.3 % (25-40); Magnesium 1.9 mg/dL (1.6-2.3); Mean Corpuscular HGB Conc 33.3 % (30-36); Mean Corpuscular Volume 96.1 fL (80-100); Monocytes Absolute Auto 2200 /uL (0-900); Monocytes Percent Auto 8.8 % (3-14); Neutrophils Absolute Auto 21100 /uL (1500-7000); Neutrophils Percent Auto 84.6 % (50-75); Platelet Count 275 X10^3/uL (150-400); Potassium 4.3 mmol/L (3.4-5.1); Red Blood Cell Count 3.66 X10^6/uL (4.5-5.9); Red Cell Distribution Width 15.3 % (11.6-14.8); Sodium 141 mmol/L (137-145)
[2018-09-30] MEDS: LORazepam 2 MG/ML SYRINGE 0.5 MG IV (10:40)
[2018-09-30] MEDS: NITROGLYCERIN OINT 1 INCH/GM OINT...G. TOP (10:41)
[2018-09-30] MEDS: methylPREDNISolone 125 MG/2 ML VIAL IV (10:41)
[2018-09-30] MEDS: FUROSEMIDE 40 MG/4 ML VIAL IV (10:41)
--- NOTE | 2018-09-30 10:50 | ED.SOB ---
HPI - SOB/Dyspnea General Chief Complaint: Shortness of Breath/Dyspnea Stated Complaint: Difficulty Breathing Time Seen by Provider: 09/30/18 10:22 Source: patient and EMS Mode of arrival: EMS Limitations: other (Difficulty breathing) Related Data Allergies Allergy/AdvReac Type Severity Reaction Status Date / Time No Known Drug Allergies Allergy Verified 09/30/18 10:40 [facility] Medical History COPD (chronic obstructive pulmonary disease) (Acute) Exam Initial Vital Signs Initial Vital Signs: Vital Signs Temperature 97.2 F L 09/30/18 10:20 Pulse Rate 89 09/30/18 10:20 Respiratory Rate 30 H 09/30/18 10:20 Blood Pressure 123/88 09/30/18 10:20 Pulse Oximetry 92 09/30/18 10:20 Course Orders Ordered: ED Orders 09/30/18 10:10 B Type Natriuretic Peptide Stat Basic Metabolic Panel Stat Complete Blood Count AUTO DIFF Stat Magnesium Stat Partial Thromboplastin Time Stat Prothrombin Time INR Stat Troponin & CK Cardiac Panel Stat 09/30/18 10:22 Consult to Respiratory Therapy Evaluate & Treat Arterial Blood Gas Stat EKG-12 Lead Stat 09/30/18 10:23 XR chest 1V Stat 09/30/18 10:40 Lactate (Lactic Acid) Stat 09/30/18 10:47 Blood Culture Stat Lactate (Lactic Acid) Stat Discontinued Medications Furosemide (Lasix) 40 mg IV NOW ONE Stop: 09/30/18 10:23 Last Admin: 09/30/18 10:41 Dose: 40 mg Lorazepam (Ativan) 0.5 mg IV NOW ONE Stop: 09/30/18 10:23 Last Admin: 09/30/18 10:40 Dose: 0.5 mg Methylprednisolone (Solu-Medrol 125 Mg Vial) 125 mg IV NOW ONE Stop: 09/30/18 10:23 Last Admin: 09/30/18 10:41 Dose: 125 mg Nitroglycerin (Nitro-Bid) 1 inch TOP NOW ONE Stop: 09/30/18 10:23 Last Admin: 09/30/18 10:41 Dose: 1 inch Vital Signs - 8 hr 09/30/18 10:20 09/30/18 10:31 09/30/18 10:41 Temperature 97.2 F L Pulse Rate 89 91 H 82 Respiratory Rate 30 H 19 Blood Pressure 123/88 116/71 Blood Pressure [Right Arm] 116/71 Pulse Oximetry 92 92 MDM - SOB/Dyspnea Lab Data Result diagrams: 09/30/18 10:10 09/30/18 10:10 Lab Results 09/30/18 09/30/18 09/30/18 Range/Units 10:10 10:10 10:10 WBC 25.0 H (4.5-11.0) X10^3/uL RBC 3.66 L (4.5-5.9) X10^6/uL Hgb 11.7 L (13.5-17.5) g/dL Hct 35.2 L (41-53) % MCV 96.1 (80-100) fL MCH 32.0 (26-34) PG MCHC 33.3 (30-36) % RDW 15.3 H (11.6-14.8) % Plt Count 275 (150-400) X10^3/uL Neut % (Auto) 84.6 H (50-75) % Lymph % (Auto) 6.3 L (25-40) % [place] % (Auto) 8.8 (3-14) % Eos % (Auto) 0.1 L (2-4) % Baso % (Auto) 0.2 (0-2) % Neut # (Auto) 43236 H (8195-9040) /uL Lymph # (Auto) 1600 (1735-3584) /uL [place] # (Auto) 2200 H (0-900) /uL Eos # (Auto) 0 (0-450) /uL Baso # (Auto) 0 (0-100) /uL PT 10.5 (10.1-12.7) SECONDS INR 0.9 (0.9-1.3) APTT 28 (26.4-36.2) SECONDS Sodium 141 (137-145) mmol/L Potassium 4.3 (3.4-5.1) mmol/L Chloride 97 L (98-107) mmol/L Carbon Dioxide 36 H (22-32) mmol/L BUN 14 (9-20) mg/dL Creatinine 0.40 L (0.66-1.25) mg/dL Estimated GFR > 60.0 (>60) mL/min BUN/Creatinine Ratio 35.0 H (6-22) Glucose 166 H (80-110) mg/dL Calcium 9.2 (8.4-10.2) mg/dL Magnesium 1.9 (1.6-2.3) mg/dL Total Creatine Kinase 67 (55-170) U/L CK-MB (CK-2) TNP CK-MB (CK-2) Rel Index TNP
[2018-09-30 10:52] LABS: Troponin I < 0.012 ng/mL (0.01-0.034)
--- NOTE | 2018-09-30 10:57 | ED_ITS ---
HPI - SOB/Dyspnea General Chief Complaint: Shortness of Breath/Dyspnea Stated Complaint: Difficulty Breathing Time Seen by Provider: 09/30/18 10:22 Source: patient and EMS Mode of arrival: EMS Limitations: other (Difficulty breathing) Related Data Allergies Allergy/AdvReac Type Severity Reaction Status Date / Time No Known Drug Allergies Allergy Verified 09/30/18 10:40 [facility] Medical History COPD (chronic obstructive pulmonary disease) (Acute) Exam Initial Vital Signs Initial Vital Signs: Vital Signs Temperature 97.2 F L 09/30/18 10:20 Pulse Rate 89 09/30/18 10:20 Respiratory Rate 30 H 09/30/18 10:20 Blood Pressure 123/88 09/30/18 10:20 Pulse Oximetry 92 09/30/18 10:20 Course Orders Ordered: ED Orders 09/30/18 10:10 B Type Natriuretic Peptide Stat Basic Metabolic Panel Stat Complete Blood Count AUTO DIFF Stat Magnesium Stat Partial Thromboplastin Time Stat Prothrombin Time INR Stat Troponin & CK Cardiac Panel Stat 09/30/18 10:22 Consult to Respiratory Therapy Evaluate & Treat Arterial Blood Gas Stat EKG-12 Lead Stat 09/30/18 10:23 XR chest 1V Stat 09/30/18 10:40 Lactate (Lactic Acid) Stat 09/30/18 10:47 Blood Culture Stat Lactate (Lactic Acid) Stat Discontinued Medications Furosemide (Lasix) 40 mg IV NOW ONE Stop: 09/30/18 10:23 Last Admin: 09/30/18 10:41 Dose: 40 mg Lorazepam (Ativan) 0.5 mg IV NOW ONE Stop: 09/30/18 10:23 Last Admin: 09/30/18 10:40 Dose: 0.5 mg Methylprednisolone (Solu-Medrol 125 Mg Vial) 125 mg IV NOW ONE Stop: 09/30/18 10:23 Last Admin: 09/30/18 10:41 Dose: 125 mg Nitroglycerin (Nitro-Bid) 1 inch TOP NOW ONE Stop: 09/30/18 10:23 Last Admin: 09/30/18 10:41 Dose: 1 inch Vital Signs - 8 hr 09/30/18 10:20 09/30/18 10:31 09/30/18 10:41 Temperature 97.2 F L Pulse Rate 89 91 H 82 Respiratory Rate 30 H 19 Blood Pressure 123/88 116/71 Blood Pressure [Right Arm] 116/71 Pulse Oximetry 92 92 MDM - SOB/Dyspnea Lab Data Result diagrams: 09/30/18 10:10 09/30/18 10:10 Lab Results 09/30/18 09/30/18 09/30/18 Range/Units 10:10 10:10 10:10 WBC 25.0 H (4.5-11.0) X10^3/uL RBC 3.66 L (4.5-5.9) X10^6/uL Hgb 11.7 L (13.5-17.5) g/dL Hct 35.2 L (41-53) % MCV 96.1 (80-100) fL MCH 32.0 (26-34) PG MCHC 33.3 (30-36) % RDW 15.3 H (11.6-14.8) % Plt Count 275 (150-400) X10^3/uL Neut % (Auto) 84.6 H (50-75) % Lymph % (Auto) 6.3 L (25-40) % [place] % (Auto) 8.8 (3-14) % Eos % (Auto) 0.1 L (2-4) % Baso % (Auto) 0.2 (0-2) % Neut # (Auto) 63531 H (3564-1175) /uL Lymph # (Auto) 1600 (4064-4409) /uL [place] # (Auto) 2200 H (0-900) /uL Eos # (Auto) 0 (0-450) /uL Baso # (Auto) 0 (0-100) /uL PT 10.5 (10.1-12.7) SECONDS INR 0.9 (0.9-1.3) APTT 28 (26.4-36.2) SECONDS Sodium 141 (137-145) mmol/L Potassium 4.3 (3.4-5.1) mmol/L Chloride 97 L (98-107) mmol/L Carbon Dioxide 36 H (22-32) mmol/L BUN 14 (9-20) mg/dL Creatinine 0.40 L (0.66-1.25) mg/dL Estimated GFR > 60.0 (>60) mL/min BUN/Creatinine Ratio 35.0 H (6-22) Glucose 166 H (80-110) mg/dL Calcium 9.2 (8.4-10.2) mg/dL Magnesium 1.9 (1.6-2.3) mg/dL Total Creatine Kinase 67 (55-170) U/L CK-MB (CK-2) TNP CK-MB (CK-2) Rel Index TNP
[2018-09-30 10:58] LABS: B Type Natriuretic Peptide < 100 (<100)
[2018-09-30 11:00] LABS: Lactate (Lactic Acid) 1.1 mmol/L (0.7-2.1)
[2018-09-30] MEDS: MORPHINE 4 MG/ML INJ IV ×2 (11:42→17:50)
[2018-09-30] MEDS: levoFLOXacin 750 MG/150 ML PIGGYBACK 100 MG IV (11:42)
--- NOTE | 2018-09-30 11:50 | PC.NURSE ---
Patient refused insertion of gasca at this time. Provider aware.
--- NOTE | 2018-09-30 12:20 | PC.NURSE ---
Patient requesting water. Patient blood pressures trending up provider aware. Patient taken off BIPAP for water and to reassess. Blood pressure normalized, patient tolerated water well. RT at bedside for ABG. Patient placed on 2L NC.
--- NOTE | 2018-09-30 12:36 | PC.NURSE ---
Patient very short of breath and getting agitated as we tried to move him onto his side so we could properly clean him. Would not completely turn over and as soon as we finished changing his brief had another small bowel movement that he refused to let us clean him again due to shortness of breath.
[2018-09-30 12:46] LABS: Procalcitonin 0.11 ng/mL (<0.5)
[2018-09-30 13:00] LABS: pH ABG 7.39 (7.35-7.45)
[2018-09-30 13:01] LABS: HCO3 ABG 37 mmol/L (22-26); PCO2 ABG 61.3 mmHg (35-45); PO2 ABG 75 mmHg (80-100); TCO2 ABG 39 mmol/L (21-31)
[2018-09-30 13:02] LABS: Fractionated Inspired Oxygen 2; Oxygen Saturation ABG 94 % (95-100)
--- NOTE | 2018-09-30 14:10 | PC.ADMIT ---
Admission Note: Rec'd pt from ED 1255 via stretcher. 3PA transfer using slider board to bed. Pt is AO x3 but forgetful with some delayed, mumbled speech. Admission assessment completed by pt verbal hx and paperwork from [facility]. On 2LPM NC with SPO2 91-93%. Pt reports recent falls and uses w/c for mobility. Bed alarm in use and call light in easy reach. The patient,Giovanni Clayton,68 y/o, was given written information regarding hospital policies, unit procedures and contact persons. Patient's smoking status: Current every day smoker. Vital Signs - 8 hr 09/30/18 10:20 09/30/18 10:30 09/30/18 10:31 Temperature 97.2 F L Pulse Rate 89 91 H Respiratory Rate 30 H 19 Blood Pressure 123/88 116/71 Blood Pressure [Right Arm] 116/71 Pulse Oximetry 92 92 09/30/18 10:41 09/30/18 11:00 09/30/18 11:30 Temperature Pulse Rate 82 89 98 H Respiratory Rate 24 18 Blood Pressure 116/71 Blood Pressure [Right Arm] 135/108 H 118/103 H Pulse Oximetry 90 L 91 09/30/18 11:48 09/30/18 12:21 09/30/18 12:30 Temperature Pulse Rate 95 H 94 H 96 H Respiratory Rate 18 20 Blood Pressure 118/103 H Blood Pressure [Right Arm] 127/63 145/79 H Pulse Oximetry 91 91
[2018-09-30 14:23] LABS: Adenovirus Not Detected (Not Detect); Bordetella pertussis Not Detected (Not Detect); Chlamydophila pneumoniae Not Detected (Not Detect); Coronavirus 229E Not Detected (Not Detect); Coronavirus HKU1 Not Detected (Not Detect); Coronavirus NL 63 Not Detected (Not Detect); Coronavirus OC43 Not Detected (Not Detect); Human Metapneumovirus Not Detected (Not Detect); Human Rhinovirus/Enterovirus Not Detected (Not Detect); Influenza A Not Detected (Not Detect); Influenza B Not Detected (Not Detect); Mycoplasma pneumoniae Not Detected (Not Detect); Parainfluenza Virus 1 Not Detected (Not Detect); Parainfluenza Virus 2 Not Detected (Not Detect); Parainfluenza Virus 3 Not Detected (Not Detect); Parainfluenza Virus 4 Not Detected (Not Detect); Respiratory Syncytial Virus Not Detected (Not Detect)
[2018-09-30] MEDS: ALBUTEROL/IPRATROPIUM 3 ML AMPUL INH ×2 (15:06→22:19)
--- NOTE | 2018-09-30 16:28 | DI.CT.S_ITS ---
PROCEDURE: CT ANGIO CHEST PE PROTOCOL INDICATIONS: rule out pulmonary emboli TECHNIQUE: After the administration of intravenous contrast, 2 mm thick sections acquired from the pulmonary apices to the posterior costophrenic angles. 3-dimensional maximum intensity projection (MIP) coronal and sagittal reformats were then acquired through the thorax. For radiation dose reduction, the following was used: automated exposure control, adjustment of mA and/or kV according to patient size. COMPARISON: None. FINDINGS: Image quality: Excellent. Pulmonary arteries: Pulmonary arteries are normal in size, and demonstrate no intraluminal filling defects to suggest central pulmonary embolism. Lungs and pleura: There is severe centrilobular emphysema with an apical predominance. No acute airspace opacities. No pleural effusion or pneumothorax. Mediastinum: Heart size is normal, without pericardial effusion. No mediastinal or hilar adenopathy. Thoracic aorta is normal in caliber and enhancement. Scattered atheromatous calcifications are present within the aortic arch. Esophagus is normal in caliber, without hiatal hernia. Bones and chest wall: A severe wedge compression deformity is present at T7. This has a sclerotic appearance suggesting this is a chronic finding. Ribs and thoracic spine appear intact throughout. Thyroid gland is unremarkable. No axillary or supraclavicular adenopathy. Abdomen: Visualized upper abdominal solid organs appear normal in the early arterial phase of enhancement. IMPRESSION: 1. No acute pulmonary embolus. 2. Severe emphysematous changes. Dictated by: Amanda Alston M.D. on 09/30/2018 at 17:47 Approved by: Amanda Alston M.D. on 09/30/2018 at 17:51
[2018-09-30] MEDS: methylPREDNISolone 125 MG/2 ML VIAL 60 MG IV (17:52)
--- NOTE | 2018-09-30 22:16 | P.HP_ITS ---
History of Present Illness Date Patient Seen: 09/30/18 Time Patient Seen: 22:15 Chief complaint: Difficulty Breathing Narrative: The patient is a 68-year-old male with PMH of HTN, AFIB, cardiomyopathy, alcoholism, alcoholic cirrhosis, HLD, anemia, COPD, severe emphysema, chronic pain, constipation, and depression. Patient presented to the ED on 09/30/2018 in the 1000 am hour, respectively, for worsening dyspnea. Symptoms onset 24-48 hours prior to ED presentation, progressively worsening. Underlying h/o COPD w/ severe emphysema and respiratory failure requiring supplemental oxygen. Patient reports chronic O2 use for the past 8 months. Admits to current tobacco dependence, 1/2 ppd. Reports to taking off O2 when going to smoke. Resides at the [facility], found by staff early am in respiratory distress. Associated symptoms include: hypoxia, exertional dyspnea, lightheadedness and non-productive cough. Reports being diagnosed w/ bronchitis on Friday. Reports increased use of bronchodilators for the past 2 days. Denies fever, chills, headache, CP, palpitations, peripheral edema, PND, syncopal events, abdominal pain, gastrointestinal distress, change in pattern of micturition, and blood in urine / stool. Diminished appetite last two days. Tolerating fluids. Baseline malnutrition w/ BMI 14. Reports stable weight. ED Work-Up Labs 09/30/2018 1010 WBC 25 RBC 3.66 Hgb 11.7 Plt 275 PCT 0.11 Lactate 1.1 Na 141 K 4.3 Mg 1.9 Cl 97 Ca 9.2 Alb 3.2 CO2 36 Glu 166 BUN 14 CR 0.4 (ratio 35) Trop < 0.012, BNP < 100 PT 10.5 INR 0.9 aPTT 28 MRSA POSITIVE (nares) Viral respiratory panel NEGATIVE ABG pH 7.39 pCO2 61.3 pO2 75 HCO3 37 XR Chest, 09/30/2018 1023... Interstitial prominence throughout, non-specific vs pulmonary edema. Lungs hyper-expanded. No pleural effusions or pneumothorax. CTA Chest, 09/30/2018... No pulmonary embolism. Severe centrilobular emphysema w/ an apical predominance. Severe wedge compression deformity at T7 (suggested to be chronic). Patient History Medical History Alcohol abuse (Acute) Alcoholic cirrhosis of liver without ascites (Acute) Anemia (Acute) Atrial fibrillation (Acute) BPH (benign prostatic hyperplasia) (Acute) COPD (chronic obstructive pulmonary disease) (Acute) Cardiomyopathy (Acute) Chronic pain (Acute) Constipation (Acute) Depression (Acute) Femur fracture, right (Acute) Hyperlipidemia (Acute) Hypertension (Acute) Osteoarthritis (Acute) Peripheral vascular disease (Acute) Social History Smoking Status: Current every day smoker alcohol intake: current Family & Social History Family History Mother No known health problems Father No known health problems Family history unavailable: No Social History: Prior Living Arrangements Assisted Living, [facility] Safety & Behavioral: Feels Safe in Current Yes Environment Been Physically Hurt or No Threatened By a Person Suicidal Ideation Description None Suicide Plan Description No Plan Tobacco & Substance use: Tobacco type cigarettes Smoking Status Current every day smoker. Reports smoking for 50 years, previously smoked 2+ ppd Smoking packs per day 1/2 to 1 alcohol intake current alcohol intake frequency 3 or more drinks per day, prior h/o alcoholism Substance Use Type marijuana, gummy, several times a month Meds Home Medications Medication Instructions Recorded Confirmed Type acetaminophen 650 mg PO Q4H PRN 09/30/18 09/30/18 History albuterol sulfate 2 puff INHALATION Q4-6H PRN 09/30/18 09/30/18 History aspirin 81 mg PO DAILY 09/30/18 09/30/18 History atorvastatin 40 mg PO BEDTIME 09/30/18 09/30/18 History bisacodyl 10 mg OK DAILY 09/30/18 09/30/18 History cholecalciferol (vitamin D3) 2,000 unit PO DAILY 09/30/18 09/30/18 History [Vitamin D3] diltiazem HCl 180 mg PO BID 09/30/18 09/30/18 History doxazosin 4 mg PO DAILY 09/30/18 09/30/18 History fludrocortisone 0.1 mg PO DAILY 09/30/18 09/30/18 History ipratropium-albuterol 3 ml INHALATION Q4H PRN 09/30/18 09/30/18 History losartan 25 mg PO DAILY 09/30/18 09/30/18 History magnesium hydroxide [Milk of 30 ml PO BEDTIME PRN 09/30/18 09/30/18 History Magnesia] mometasone-formoterol [Dulera] 2 puff INHALATION BID 09/30/18 09/30/18 History morphine 15 mg PO Q8H 09/30/18 09/30/18 History multivitamin 1 tab PO DAILY 09/30/18 09/30/18 History pantoprazole 40 mg PO DAILY 09/30/18 09/30/18 History paroxetine HCl [Paxil] 20 mg PO DAILY 09/30/18 09/30/18 History sodium phosphates [Fleet Enema] 118 ml OK DAILY PRN 09/30/18 09/30/18 History tamsulosin 0.4 mg PO DAILY 09/30/18 09/30/18 History tiotropium bromide [Spiriva with 1 cap INHALATION DAILY 09/30/18 09/30/18 History HandiHaler] Allergies Allergy/AdvReac Type Severity Reaction Status Date / Time No Known Drug Allergies Allergy Verified 09/30/18 10:40 Review of Systems Review of Systems All systems reviewed & are unremarkable except as noted in HPI and below Exam Vital Signs (past 8 hours): - 09/30/18 15:13 09/30/18 15:16 09/30/18 15:46 Temperature Pulse Rate 93 H 93 H Respiratory Rate 25 H Blood Pressure 121/66 146/81 H Pulse Oximetry 91 91 09/30/18 19:56 Temperature 98.8 F Pulse Rate 88 Respiratory Rate 14 Blood Pressure 114/65 Pulse Oximetry 93 Fraction of Inspired Oxygen 24 Oxygen Delivery Method Nasal Cannula,BiPAP Oxygen Flow Rate 2 Narrative Exam Narrative: Constitutional: NAD, emaciated / cacectic in appearance, BMI 1 4.3 Neurologic: AOx3, no focal neurological deficits, GCS 15 Head: NC, AT Eyes: PERRL, EOMI, gaze conjugate Ears: external ears normal, no otorrhea; hard of hearing Nose: external nose normal, no rhinorrhea or epistaxis Throat: MMM, oropharynx w/o exudate Neck: no masses, lymphadenopathy, or JVD Chest / Respiratory: poor air movement, inspiratory and expiratory wheeze posteriorly, on supplemental O2, no retractions Heart / CV: S1S2, distant tones, ectopic beats at times Abdomen / GI: round, NT, ND, + BS, no organomegaly : no suprapubic tenderness, no CVA Peripheral / Vascular: warm to touch, DP and PT pulses palpable, no edema Musc: diminished ROM of b/l LE, no focal weakness Skin: no ecchymosis or suspicious lesions / ulcers, does not appear jaundiced, clubbing of fingernails Objective Labs Result Diagrams: 09/30/18 10:10 09/30/18 10:10 Labs: Laboratory Results - last 24 hr 09/30/18 09/30/18 09/30/18 10:10 10:10 10:10 WBC 25.0 H RBC 3.66 L Hgb 11.7 L Hct 35.2 L MCV 96.1 MCH 32.0 MCHC 33.3 RDW 15.3 H Plt Count 275 Neut % (Auto) 84.6 H Lymph % (Auto) 6.3 L [place] % (Auto) 8.8 Eos % (Auto) 0.1 L Baso % (Auto) 0.2 Neut # (Auto) 32588 H Lymph # (Auto) 1600 [place] # (Auto) 2200 H Eos # (Auto) 0 Baso # (Auto) 0 PT 10.5 INR 0.9 APTT 28 ABG pH ABG pCO2 ABG pO2 ABG HCO3 ABG Total CO2 ABG O2 Saturation ABG Base Excess FiO2 Sodium 141 Potassium 4.3 Chloride 97 L Carbon Dioxide 36 H BUN 14 Creatinine 0.40 L Estimated GFR > 60.0 BUN/Creatinine Ratio 35.0 H Glucose 166 H Lactate Calcium 9.2 Magnesium 1.9 Total Creatine Kinase 67 CK-MB (CK-2) TNP CK-MB (CK-2) Rel Index TNP Troponin I < 0.012 B-Natriuretic Peptide < 100 Procalcitonin Nasal Screen MRSA (PCR) Chlamy pneumoniae PCR Adenovirus (PCR) B.parapertussis DNA PCR Coronavirus OC43 (PCR) Coronavirus HKU1 (PCR) Coronavirus 229E (PCR) Coronavirus NL63 (PCR) Human Metapneumovir PCR Influenza Type A (PCR) Influenza Type B (PCR) M. pneumoniae (PCR) Parainfluenza 1 (PCR) Parainfluenza 2 (PCR) Parainfluenza 3 (PCR) Parainfluenza 4 (PCR) RSV (PCR) Entero/Rhino (PCR) 09/30/18 09/30/18 09/30/18 10:40 10:40 12:18 WBC RBC Hgb Hct MCV MCH MCHC RDW Plt Count Neut % (Auto) Lymph % (Auto) [place] % (Auto) Eos % (Auto) Baso % (Auto) Neut # (Auto) Lymph # (Auto) [place] # (Auto) Eos # (Auto) Baso # (Auto) PT INR APTT ABG pH 7.39 ABG pCO2 61.3 H* ABG pO2 75 L ABG HCO3 37 H ABG Total CO2 39 H ABG O2 Saturation 94 L ABG Base Excess 12.0 H FiO2 2 Sodium Potassium Chloride Carbon Dioxide BUN Creatinine Estimated GFR BUN/Creatinine Ratio Glucose Lactate 1.1 Calcium Magnesium Total Creatine Kinase CK-MB (CK-2) CK-MB (CK-2) Rel Index Troponin I B-Natriuretic Peptide Procalcitonin 0.11 Nasal Screen MRSA (PCR) Chlamy pneumoniae PCR Adenovirus (PCR) B.parapertussis DNA PCR Coronavirus OC43 (PCR) Coronavirus HKU1 (PCR) Coronavirus 229E (PCR) Coronavirus NL63 (PCR) Human Metapneumovir PCR Influenza Type A (PCR) Influenza Type B (PCR) M. pneumoniae (PCR) Parainfluenza 1 (PCR) Parainfluenza 2 (PCR) Parainfluenza 3 (PCR) Parainfluenza 4 (PCR) RSV (PCR) Entero/Rhino (PCR) 09/30/18 09/30/18 12:54 14:00 WBC RBC Hgb Hct MCV MCH MCHC RDW Plt Count Neut % (Auto) Lymph % (Auto) [place] % (Auto) Eos % (Auto) Baso % (Auto) Neut # (Auto) Lymph # (Auto) [place] # (Auto) Eos # (Auto) Baso # (Auto) PT INR APTT ABG pH ABG pCO2 ABG pO2 ABG HCO3 ABG Total CO2 ABG O2 Saturation ABG Base Excess FiO2 Sodium Potassium Chloride Carbon Dioxide BUN Creatinine Estimated GFR BUN/Creatinine Ratio Glucose Lactate Calcium Magnesium Total Creatine Kinase CK-MB (CK-2) CK-MB (CK-2) Rel Index Troponin I B-Natriuretic Peptide Procalcitonin Nasal Screen MRSA (PCR) Positive for mrsa H Chlamy pneumoniae PCR Not detected Adenovirus (PCR) Not detected B.parapertussis DNA PCR Not detected Coronavirus OC43 (PCR) Not detected Coronavirus HKU1 (PCR) Not detected Coronavirus 229E (PCR) Not detected Coronavirus NL63 (PCR) Not detected Human Metapneumovir PCR Not detected Influenza Type A (PCR) Not detected Influenza Type B (PCR) Not detected M. pneumoniae (PCR) Not detected Parainfluenza 1 (PCR) Not detected Parainfluenza 2 (PCR) Not detected Parainfluenza 3 (PCR) Not detected Parainfluenza 4 (PCR) Not detected RSV (PCR) Not detected Entero/Rhino (PCR) Not detected Assessment & Plan Assessment Narrative: Plan: Acute on chronic respiratory failure w/ hypoxia, present on admission Improving. Suspected sequela of COPD exacerbation. Patient admitted to ICU. Initially treated w/ BiPap (now weaned to supplemental O2), systemic steroids, and Duo-Neb Tx - please see COPD plan of care COPD w/ Acute Exacerbation with hypoxia and hypercarbia, neutrophilic exacerbation 2/2 inhalant exposure (smoke) and underutilization of home O2 therapy complications and comorbid conditions: present include: cardiomyopathy, AFIB, chronic respiratory failure, WBC 25 K 4.3 Mg 1.9 Co2 36 Trop WNL, BNP WNL, viral respiratory panel NEGATIVE - Consult RT, eval / treat - Supplemental O2, titrate for SpO2 goal of 88-92% - ABG prn, re: severe exacerbation w/ potential for decompensation - DuoNeb Q4H scheduled - Solumedrol 60 mg Q8H - Resume [employer] dose / regimen of dulera - Empiric therapy w/ levofloxacin although not much purulence reported, empiric therapy at this time helps to ameliorate treatment failure - Sputum cx, - Trend e-lytes in the setting of bronchodilator use, replete accordingly Neutrophilic leukocytosis Concern for infection, however leukocytosis is not always a reliable predictor of infection in COPD WBC 25 r/t steroid use (on fludrocortisone for adrenal insufficiency) vs. underlying infection (no fever, lung infiltrate on CXR, lactate WNL) vs. inflammatory response vs. chronic hypoxic state - Trend WBC - Smoking cessation highly encouraged - Steroid and empiric therapy initiated - Blood Cx collected in ED, pending, to be f/u Cachexia w/ severe protein calorie malnutrition Present on admission. h/o COPD, cardiomyopathy, EtOH abuse, liver cirrhosis BMI 14.3. Overall diminished baseline functional status. Reports stable weight over a period of 1 year. Alb 3.2. - Consult termite renewal inspector, eval and treat Chronic constipation, chronic condition, likely induced or worsened by chronic opioid use, resume [employer] bisacodyl Essential HTN, controlled chronic condition - Monitor / Trend BP - Resume [employer] dose / regimen of losartan, diltiazem, and doxazosin Dyslipidemia, controlled chronic condition, resume [employer] dose / regimen of atorvastatin BPH w/o LUTS, stable chronic condition, resume [employer] dose / regimen of tamsulosin Adrenal insufficiency, w/o s/s of adrenal crisis - Monitor for s/s of adrenal crisis - Resume [employer] dose / regimen of fludrocortisone PAF, stable chronic condition, currently in SR - Resume [employer] dose / regimen of diltiazem - Resume [employer] ASA 81 mg QD for anti-coagulation. Not on NOACs, likely d/t h/o liver cirrhosis. Hgb and Plt stable Depression, controlled w/ paroxetine, resume per [employer] dose / regimen. Denies harmful ideation towards self or others. Cardiomyopathy, potentially alcoholic given h/o of long standing alcoholism No records of prior Echo in chart to assess for heart function or patient's prior records. Initially thought to have presented w/ degree of heart failure and questionable CXR for pulmonary congestion. - Received Lasix 40 mg IV in ED w/ good diuresis per ED note. Will hold off further diuretics and monitor volume status. - Consider echo Alcohol dependence H/o alcohol abuse. Continues to drink, but infrequently. Limit access to alcohol. Last reported drink 2 weeks ago. - Monitor for s/s of withdrawal, not likely to have at this point, LUCÍA harrelln
[2018-10-01] VITALS (19 sets, daily range): BP systolic 114–152; BP diastolic 62–83; PULSE 81–102; RESP 16–26; TEMP 36.6–37.6; O2SAT 92–98; BMI 14.0
[2018-10-01] MEDS: MORPHINE 4 MG/ML INJ IV ×2 (00:31→21:57)
[2018-10-01] MEDS: methylPREDNISolone 125 MG/2 ML VIAL 60 MG IV ×3 (01:54→18:26)
[2018-10-01] MEDS: ALBUTEROL/IPRATROPIUM 3 ML AMPUL INH ×6 (03:18→23:37)
[2018-10-01] MEDS: LORazepam 2 MG/ML SYRINGE IV (04:00)
[2018-10-01] MEDS: NICOTINE 21 MG PATCH TOP (05:19)
[2018-10-01] MEDS: OLANZapine 2.5 MG TABLET 5 MG PO (05:19)
[2018-10-01 05:30] LABS: Add Manual Diff / Slide Review NO; Basophils Absolute Auto 0 /uL (0-100); Eosinophils Absolute Auto 0 /uL (0-450); Hematocrit 31.9 % (41-53); Hemoglobin 10.8 g/dL (13.5-17.5); Lymphocytes Absolute Auto 1100 /uL (1100-4500); Lymphocytes Percent Auto 5.7 % (25-40); Mean Corpuscular HGB Conc 33.9 % (30-36); Mean Corpuscular Hemoglobin 32.1 PG (26-34); Mean Corpuscular Volume 94.9 fL (80-100); Monocytes Absolute Auto 300 /uL (0-900); Monocytes Percent Auto 1.8 % (3-14); Neutrophils Absolute Auto 17600 /uL (1500-7000); Neutrophils Percent Auto 92.5 % (50-75); Platelet Count 264 X10^3/uL (150-400); Red Blood Cell Count 3.36 X10^6/uL (4.5-5.9); Red Cell Distribution Width 14.9 % (11.6-14.8)
[2018-10-01 05:38] LABS: Ethanol (ETOH) < 10 mg/dL
[2018-10-01 07:23] LABS: Blood Urea Nitrogen 14 mg/dL (9-20); Carbon Dioxide 37 mmol/L (22-32); Chloride 95 mmol/L (98-107); Estimated Glomerular Filt Rate > 60.0 mL/min (>60); Glucose 146 mg/dL (80-110); HEMOLYSIS < 15 (0-50); Magnesium 1.9 mg/dL (1.6-2.3); Potassium 3.9 mmol/L (3.4-5.1); Sodium 139 mmol/L (137-145)
--- NOTE | 2018-10-01 08:43 | CM.DANOTE ---
DCP: Case received, EMR reviewed and checked on patient. Updated white board in room. Information about patient obtained by Suzie, yu at [facility]. DCP template completed with information currently available. Patient is a 68 year old male who admitted yesterday afternoon to the care of the hospitalist team. PCP: Dr. Max. Payer: confirmed: Medicare/Medicaid. Patient came to hospital via ambulance due to respiratory distress. Patient has history of COPD, and Pulmonary Cachexia Syndrome. He also smokes approximately a pack of cigarettes a day, is on oxygen, and has history of alcoholism. Patient resides at [facility]. Spoke to Suzie for information on patient, for he was sleeping. Stated that he has only been with them for approximately 5 days. He is from [place], has a sister, other siblings that he does not keep in contact with. According to Suzie, patient drinks a beer a day, and goes outside to smoke, they make sure that he does not have his portable oxygen connected. He is non-compliant with his health, and uses a wheel-chair most of the time, a walker to stand and pivot. He gets help with showers, meals, toileting. She stated that she would not need to come and assess him if he is to get discharged today. P:DCP to follow closely. Is OBS status at this time. Should be able to return to [facility] when he is medically stable. Camille Crump RN/Water [employer] Ferry Operator
[2018-10-01] MEDS: ASPIRIN EC 81 MG TABLET PO (09:16)
[2018-10-01] MEDS: dilTIAZem CD 180 MG CAP PO ×2 (09:16→21:42)
[2018-10-01] MEDS: LOSARTAN 25 MG TABLET PO (09:17)
[2018-10-01] MEDS: FLUDROCORTISONE 0.1 MG TABLET PO (09:17)
[2018-10-01] MEDS: DOXAZOSIN 4 MG TABLET PO (09:17)
[2018-10-01] MEDS: MULTIVITAMIN 1 TABLET 1 TAB PO (09:18)
[2018-10-01] MEDS: TAMSULOSIN 0.4 MG CAPSULE PO (09:18)
[2018-10-01] MEDS: ACETAMINOPHEN 325 MG TABLET 650 MG PO (09:19)
[2018-10-01] MEDS: PARoxetine 20 MG TABLET PO (09:19)
--- NOTE | 2018-10-01 16:17 | PM.PN.1 ---
Subjective Date Patient Seen: 10/01/18 Interval history: The patient is a 68-year-old male with PMH of HTN, AFIB, cardiomyopathy, alcoholism, alcoholic cirrhosis, HLD, anemia, COPD, severe emphysema, chronic pain, constipation, and depression. Patient presented to the ED on 09/30/2018 in the 1000 am hour, respectively, for worsening dyspnea. Symptoms onset 24-48 hours prior to ED presentation, progressively worsening. Underlying h/o COPD w/ severe emphysema and respiratory failure requiring supplemental oxygen. Patient reports chronic O2 use for the past 8 months. Admits to current tobacco dependence, 1/2 ppd. Reports to taking off O2 when going to smoke. Resides at the [facility], found by staff early am in respiratory distress. Associated symptoms include: hypoxia, exertional dyspnea, lightheadedness and non-productive cough. Reports being diagnosed w/ bronchitis on Friday. Reports increased use of bronchodilators for the past 2 days. Denies fever, chills, headache, CP, palpitations, peripheral edema, PND, syncopal events, abdominal pain, gastrointestinal distress, change in pattern of micturition, and blood in urine / stool. Diminished appetite last two days. Tolerating fluids. Baseline malnutrition w/ BMI 14. Reports stable weight. Exam Vital Signs (past 8 hours): - 10/01/18 12:35 10/01/18 12:52 10/01/18 13:14 Temperature 98.4 F Pulse Rate 92 H 96 H Respiratory Rate 24 18 Blood Pressure 124/69 Pulse Oximetry 96 98 93 Fraction of Inspired Oxygen 24 Oxygen Delivery Method Room Air Oxygen Flow Rate 3 Narrative Exam Narrative: GENERAL: Elderly slightly drowsy male with muffled speech HEENT: Head normocephalic, atraumatic. Mucous membranes moist. CHEST: Diffuse bilateral wheeze, no crackles CARDIAC: Regular rate and rhythm. ABDOMEN: Nondistended, soft, nontender EXTREMITIES: no edema. NEUROLOGICAL: Alert, pleasant, no focal findings SKIN: Warm, dry, no petechiae, no rash Objective Labs Result Diagrams: 10/01/18 05:10 10/01/18 05:10 Labs: Laboratory Results - last 24 hr 10/01/18 10/01/18 10/01/18 05:10 05:10 05:10 WBC 19.0 H RBC 3.36 L Hgb 10.8 L Hct 31.9 L MCV 94.9 MCH 32.1 MCHC 33.9 RDW 14.9 H Plt Count 264 Neut % (Auto) 92.5 H Lymph % (Auto) 5.7 L [place] % (Auto) 1.8 L Eos % (Auto) 0.0 L Baso % (Auto) 0.0 Neut # (Auto) 45996 H Lymph # (Auto) 1100 [place] # (Auto) 300 Eos # (Auto) 0 Baso # (Auto) 0 Sodium 139 Potassium 3.9 Chloride 95 L Carbon Dioxide 37 H BUN 14 Creatinine 0.40 L Estimated GFR > 60.0 BUN/Creatinine Ratio 35.0 H Glucose 146 H Calcium 9.0 Magnesium 1.9 Ethyl Alcohol < 10 Assessment & Plan Plan: Acute on chronic respiratory failure w/ hypoxia, present on admission Improving. Suspected sequela of COPD exacerbation. Patient admitted to ICU. Initially treated w/ BiPap (now weaned to supplemental O2), systemic steroids, and Duo-Neb Tx - please see COPD plan of care COPD w/ Acute Exacerbation with hypoxia and hypercarbia, neutrophilic exacerbation 2/2 inhalant exposure (smoke) and underutilization of home O2 therapy complications and comorbid conditions: present include: cardiomyopathy, AFIB, chronic respiratory failure, WBC 25 K 4.3 Mg 1.9 Co2 36 Trop WNL, BNP WNL, viral respiratory panel NEGATIVE - Consult RT, eval / treat - Supplemental O2, titrate for SpO2 goal of 88-92% - ABG prn, re: severe exacerbation w/ potential for decompensation - DuoNeb Q4H scheduled - Solumedrol 60 mg Q8H - Resume [employer]IV[employer] dose / regimen of dulera - Empiric therapy w/ levofloxacin although not much purulence reported, empiric therapy at this time helps to ameliorate treatment failure - Sputum cx pending, Neutrophilic leukocytosis Concern for infection, however leukocytosis is not always a reliable predictor of infection in COPD WBC 25 r/t steroid use (on fludrocortisone for adrenal insufficiency) vs. underlying infection (no fever, lung infiltrate on CXR, lactate WNL) vs. inflammatory response vs. chronic hypoxic state - Trend WBC, improved to 19 K - Smoking cessation highly encouraged - Steroid and empiric therapy initiated - Blood Cx collected in ED, pending, to be f/u Cachexia w/ severe protein calorie malnutrition Present on admission. h/o COPD, cardiomyopathy, EtOH abuse, liver cirrhosis BMI 14.3. Overall diminished baseline functional status. Reports stable weight over a period of 1 year. Alb 3.2. - Consult practice manager, eval and treat Chronic constipation, chronic condition, likely induced or worsened by chronic opioid use, resume [employer]IV[employer] bisacodyl Essential HTN, controlled chronic condition - Monitor / Trend BP - Resume [employer]IV[employer]ER dose / regimen of losartan, diltiazem, and doxazosin Dyslipidemia, controlled chronic condition, resume [employer]IV[employer]ER dose / regimen of atorvastatin BPH w/o LUTS, stable chronic condition, resume [employer]IV[employer]ER dose / regimen of tamsulosin Adrenal insufficiency, w/o s/s of adrenal crisis - Monitor for s/s of adrenal crisis - Resume [employer]IVETER dose / regimen of fludrocortisone (not on chronic corticosteroid) Paroxysmal atrial fibrillation, stable chronic condition, currently in SR - Resume [employer]IVETER dose / regimen of diltiazem - Resume [employer]IV[employer] ASA 81 mg QD for anti-coagulation. Not on NOACs, likely d/t h/o liver cirrhosis. Hgb and Plt stable Depression, controlled w/ paroxetine, resume per HOOP RIVETER dose / regimen. Denies harmful ideation towards self or others. Cardiomyopathy, potentially alcoholic given h/o of long standing alcoholism No records of prior Echo in chart to assess for heart function or patient's prior records. Initially thought to have presented w/ degree of heart failure and questionable CXR for pulmonary congestion. - Received Lasix 40 mg IV in ED w/ good diuresis per ED note. Will hold off further diuretics and monitor volume status. - Consider echo Alcohol dependence H/o alcohol abuse. Continues to drink, but infrequently. Limit access to alcohol. Last reported drink 2 weeks ago. - Monitor for s/s of withdrawal, not likely to have at this point, LUCÍA harrelln
--- NOTE | 2018-10-01 16:24 | P.PN_ITS ---
Subjective Date Patient Seen: 10/01/18 Interval history: The patient is a 68-year-old male with PMH of HTN, AFIB, cardiomyopathy, alcoholism, alcoholic cirrhosis, HLD, anemia, COPD, severe emphysema, chronic pain, constipation, and depression. Patient presented to the ED on 09/30/2018 in the 1000 am hour, respectively, for worsening dyspnea. Symptoms onset 24-48 hours prior to ED presentation, progre ssively worsening. Underlying h/o COPD w/ severe emphysema and respiratory failure requiring supplemental oxygen. Patient reports chronic O2 use for the past 8 months. Admits to current tobacco dependence, 1/2 ppd. Reports to taking off O2 when going to smoke. Resides at the [facility], found by staff early am in respiratory distress. Associated symptoms include: hypoxia, exertional dyspnea, lightheadedness and non-productive cough. Reports being diagnosed w/ bronchitis on Friday. Reports increased use of bronchodilators for the past 2 days. Denies fever, chills, headache, CP, palpitations, peripheral edema, PND, syncopal events, abdominal pain, gastrointestinal distress, change in pattern of micturition, and blood in urine / stool. Diminished appetite last two days. Tolerating fluids. Baseline malnutrition w/ BMI 14. Reports stable weight. Exam Vital Signs (past 8 hours): - 10/01/18 12:35 10/01/18 12:52 10/01/18 13:14 Temperature 98.4 F Pulse Rate 92 H 96 H Respiratory Rate 24 18 Blood Pressure 124/69 Pulse Oximetry 96 98 93 Fraction of Inspired Oxygen 24 Oxygen Delivery Method Room Air Oxygen Flow Rate 3 Narrative Exam Narrative: GENERAL: Elderly slightly drowsy male with muffled speech HEENT: Head normocephalic, atraumatic. Mucous membranes moist. CHEST: Diffuse bilateral wheeze, no crackles CARDIAC: Regular rate and rhythm. ABDOMEN: Nondistended, soft, nontender EXTREMITIES: no edema. NEUROLOGICAL: Alert, pleasant, no focal findings SKIN: Warm, dry, no petechiae, no rash Objective Labs Result Diagrams: 10/01/18 05:10 10/01/18 05:10 Labs: Laboratory Results - last 24 hr 10/01/18 10/01/18 10/01/18 05:10 05:10 05:10 WBC 19.0 H RBC 3.36 L Hgb 10.8 L Hct 31.9 L MCV 94.9 MCH 32.1 MCHC 33.9 RDW 14.9 H Plt Count 264 Neut % (Auto) 92.5 H Lymph % (Auto) 5.7 L [place] % (Auto) 1.8 L Eos % (Auto) 0.0 L Baso % (Auto) 0.0 Neut # (Auto) 12322 H Lymph # (Auto) 1100 [place] # (Auto) 300 Eos # (Auto) 0 Baso # (Auto) 0 Sodium 139 Potassium 3.9 Chloride 95 L Carbon Dioxide 37 H BUN 14 Creatinine 0.40 L Estimated GFR > 60.0 BUN/Creatinine Ratio 35.0 H Glucose 146 H Calcium 9.0 Magnesium 1.9 Ethyl Alcohol < 10 Assessment & Plan Plan: Acute on chronic respiratory failure w/ hypoxia, present on admission Improving. Suspected sequela of COPD exacerbation. Patient admitted to ICU. Initially treated w/ BiPap (now weaned to supplemental O2), systemic steroids, and Duo-Neb Tx - please see COPD plan of care COPD w/ Acute Exacerbation with hypoxia and hypercarbia, neutrophilic exacerbation 2/2 inhalant exposure (smoke) and underutilization of home O2 therapy complications and comorbid conditions: present include: cardiomyopathy, AFIB, chronic respiratory failure, WBC 25 K 4.3 Mg 1.9 Co2 36 Trop WNL, BNP WNL, viral respiratory panel NEGATIVE - Consult RT, eval / treat - Supplemental O2, titrate for SpO2 goal of 88-92% - ABG prn, re: severe exacerbation w/ potential for decompensation - DuoNeb Q4H scheduled - Solumedrol 60 mg Q8H - Resume [employer] dose / regimen of dulera - Empiric therapy w/ levofloxacin although not much purulence reported, empiric therapy at this time helps to ameliorate treatment failure - Sputum cx pending, Neutrophilic leukocytosis Concern for infection, however leukocytosis is not always a reliable predictor of infection in COPD WBC 25 r/t steroid use (on fludrocortisone for adrenal insufficiency) vs. underlying infection (no fever, lung infiltrate on CXR, lactate WNL) vs. inf lammatory response vs. chronic hypoxic state - Trend WBC, improved to 19 K - Smoking cessation highly encouraged - Steroid and empiric therapy initiated - Blood Cx collected in ED, pending, to be f/u Cachexia w/ severe protein calorie malnutrition Present on admission. h/o COPD, cardiomyopathy, EtOH abuse, liver cirrhosis BMI 14.3. Overall diminished baseline functional status. Reports stable weight over a period of 1 year. Alb 3.2. - Consult complaint supervisor, eval and treat Chronic constipation, chronic condition, likely induced or worsened by chronic opioid use, resume [employer] bisacodyl Essential HTN, controlled chronic condition - Monitor / Trend BP - Resume [employer] dose / regimen of losartan, diltiazem, and doxazosin Dyslipidemia, controlled chronic condition, resume [employer] dose / regimen of atorv astatin BPH w/o LUTS, stable chronic condition, resume [employer] dose / regimen of tamsulosin Adrenal insufficiency, w/o s/s of adrenal crisis - Monitor for s/s of adrenal crisis - Resume [employer] dose / regimen of fludrocortisone (not on chronic corticosteroid) Paroxysmal atrial fibrillation, stable chronic condition, currently in SR - Resume [employer] dose / regimen of diltiazem - Resume [employer] ASA 81 mg QD for anti-coagulation. Not on NOACs, likely d/t h/o liver cirrhosis. Hgb and Plt stable Depression, controlled w/ paroxetine, resume per [employer] dose / regimen. Denies harmful ideation towards self or others. Cardiomyopathy, potentially alcoholic given h/o of long standing alcoholism No records of prior Echo in chart to assess for heart function or patient's prior records. Initially thought to have presented w/ degree of heart failure and questionable CXR for pulmonary congestion. - Received Lasix 40 mg IV in ED w/ good diuresis per ED note. Will hold off further diuretics and monitor volume status. - Consider echo Alcohol dependence H/o alcohol abuse. Continues to drink, but infrequently. Limit access to alcohol. Last reported drink 2 weeks ago. - Monitor for s/s of withdrawal, not likely to have at this point, LUCÍA harrelln
[2018-10-01] MEDS: levoFLOXacin 750 MG/150 ML PIGGYBACK 100 MG IV (18:24)
[2018-10-01 20:01] LABS: Acinetobacter baumannii Not Detected (Not Detect); Candida albicans Not Detected (Not Detect); Candida glabrata Not Detected (Not Detect); Candida krusei Not Detected (Not Detect); E. coli Not Detected (Not Detect); Enterobacter cloacae complex Not Detected (Not Detect); Enterobacteriaceae species Not Detected (Not Detect); Enterococcus species Not Detected (Not Detect); Haemophilus influenzae Not Detected (Not Detect); Listeria monocytogenes Not Detected (Not Detect); Neisseria meningitidis Not Detected (Not Detect); Proteus species Not Detected (Not Detect); Pseudomonas aeruginosa Not Detected (Not Detect); Serratia marcescens Not Detected (Not Detect); Staphylococcus species Detected (Not Detect); Streptococcus agalactiae (Gr B Not Detected (Not Detect); Streptococcus pneumonia Not Detected (Not Detect); Streptococcus pyogenes (Gr A) Not Detected (Not Detect); Streptococcus species Not Detected (Not Detect)
[2018-10-01 20:02] LABS: Candida parapsilosis Not Detected (Not Detect); Candida tropicalis Not Detected (Not Detect)
[2018-10-01] MEDS: guaiFENesin ER 600 MG TAB 1200 MG PO (21:41)
[2018-10-01] MEDS: MONTELUKAST 10 MG TABLET PO (21:42)
[2018-10-01] MEDS: ENOXAPARIN 40 MG/0.4 ML SYRINGE SUBCUT (21:42)
[2018-10-01] MEDS: ATORVASTATIN 20 MG TABLET 40 MG PO (21:43)
[2018-10-01] MEDS: MOMETASONE FORMOTEROL 2 EACH INHALATION (21:44)
--- NOTE | 2018-10-01 22:43 | PC.NURSE ---
leidy note pt denies SOB at rest. Moist cough nonproductive, called JOAN Matamoros to request guiafenissen. Also called to report 1 of 2 blood cultures is initially showing a staph species, possible contaminant per laboratory. Pt ate dinner in 2 sessions. Pt tires easily with eating. Changed diet to mechanical soft. Pt incontinent of urine.
--- NOTE | 2018-10-01 23:16 | PM.EVENT ---
Date Patient Seen: 10/01/18 Time Patient Seen: 23:16 RISK FACTORS Multi drug-resistant organism: Immunosuppressive disease, Residents in a alf Drug resistant streptococcus pneumonia risk factors: Age greater than 65, Immunosuppression as result of illness, History of alcoholism, current alcohol use Pseudomonas risk factors: Structural lung disease, currently on steroid therapy, malnutrition Blood culture growth at day 1, staph species Plan - discontinue levofloxacin - initiate cefepime 2 gm IV every 8 hours x7 days - continue to follow blood culture results
--- NOTE | 2018-10-01 23:19 | P.EN_ITS ---
Date Patient Seen: 10/01/18 Time Patient Seen: 23:16 RISK FACTORS Multi drug-resistant organism: Immunosuppressive disease, Residents in a halfway Drug resistant streptococcus pneumonia risk factors: Age greater than 65, Immunosuppression as result of illness, History of alcoholism, current alcohol use Pseudomonas risk factors: Structural lung disease, currently on steroid therapy, malnutrition Blood culture growth at day 1, staph species Plan - discontinue levofloxacin - initiate cefepime 2 gm IV every 8 hours x7 days - continue to follow blood culture results
[2018-10-02] VITALS (11 sets, daily range): BP systolic 111–136; BP diastolic 62–75; PULSE 88–111; RESP 18–24; TEMP 37.2–37.4; O2SAT 92–95
[2018-10-02] MEDS: CEFEPIME 2 GM in SODIUM CHLORIDE 0.9% 100 ML 200 ML IV ×2 (00:58→08:07)
[2018-10-02] MEDS: methylPREDNISolone 125 MG/2 ML VIAL 60 MG IV ×2 (00:59→11:48)
[2018-10-02] MEDS: ALBUTEROL/IPRATROPIUM 3 ML AMPUL INH ×4 (02:44→12:23)
--- NOTE | 2018-10-02 06:25 | PC.NURSE ---
Pt Sp02 on 1L >95%. Placed on RA, pt states last time they tried to take me off oxygen I had a panic attack. Reassured pt and educated on need for oxygen. Pt with continuous Sp02 of 92-94% on RA. When RT at bedside for treatment pt requested to be placed back on oxygen. Currently on 1LNC with Sp02 97%.
[2018-10-02] MEDS: MOMETASONE FORMOTEROL 2 EACH INHALATION (08:02)
[2018-10-02] MEDS: MORPHINE 4 MG/ML INJ IV (08:06)
[2018-10-02] MEDS: guaiFENesin ER 600 MG TAB 1200 MG PO (08:07)
[2018-10-02] MEDS: dilTIAZem CD 180 MG CAP PO (08:09)
[2018-10-02] MEDS: FLUDROCORTISONE 0.1 MG TABLET PO (08:09)
[2018-10-02] MEDS: TAMSULOSIN 0.4 MG CAPSULE PO (08:09)
[2018-10-02] MEDS: PARoxetine 20 MG TABLET PO (08:09)
[2018-10-02] MEDS: MULTIVITAMIN 1 TABLET 1 TAB PO (08:09)
[2018-10-02] MEDS: DOXAZOSIN 4 MG TABLET PO (08:10)
[2018-10-02] MEDS: ASPIRIN EC 81 MG TABLET PO (08:10)
[2018-10-02] MEDS: LOSARTAN 25 MG TABLET PO (08:10)
[2018-10-02] MEDS: NICOTINE 21 MG PATCH TOP (08:12)
--- NOTE | 2018-10-02 10:16 | CM.DPC ---
Addendum entered by Meena Alonzo LPN 10/02/18 14:48: Haily did arrive to see pt and all is now in process to take pt back today to the facility. Dr. Covarrubias has completed orders and ANGELICA Fox notes all is set for pt to leave now with no needs for more intervention from this DC Needle Loom Setter. P: return to [facility] this afternoon with Haily/coordinating details. Original Note: Addendum entered by Meena Alonzo LPN 10/02/18 13:48: Dr. Covarrubias has confirmed that pt is ready for a return to [facility] but he is waiting on the nurse assessment before he puts in the d/c order. Confirmed with ANGELICA Fox that Haily had not been here yet. Called Suzie; she says Haily has been busy with staff issues due to snow and is unclear when she will be able to come over. Asked about transport tomorrow if the d/c is delayed as weather issues are reportedly worsening. She said she had not thought that far ahead but that she will discuss now with Haily.....Dr. Covarrubias is updated. Will follow. Original Note: Addendum entered by Meena Alonzo LPN 10/02/18 12:09: Met with pt, introduced self and role. Pt says he is eager to return to when the doctor ok's it. PT is ordered now. Pt is primarily w/c bound but does reportedly self transfer to want to make sure he is at his baseline mobilty. Haily is expected to come over today. ICU staff as well as Dr. Covarrubias are aware of same. Original Note: DCP: continued: case received, EMR reviewed and discussed in Team Rounds with Dr. Covarrubias. He indicated pt approaching readiness for a return to [facility]. Called Suzie/[facility] and updated her. She agrees to send over nurse Haily sometime today to assess. Do not see any therapy involvement: will discussed with Dr. Covarrubias to see if orders appropriated. Suzie clarifies that pt has just been with them for about a week. He has lived for years at a snf in [place] and was recently moved to [facility] facility as part of the Medicaid/snf/assessment process with goal to move residents out of snf settings if at all possible. Suzie reports that pt does, indeed, smoke outside their facility. if the residents check themselves out for a short time they are allowed to do what they wish, per the assisted/CMS regulations. He does leave his oxygen in the building when he does this. She says he did this for years at the facility in [place]. Will be following. Will check in with pt and follow accordingly.
--- NOTE | 2018-10-02 13:23 | PT.IPTN ---
Current Diagnoses Chronic obstructive pulmonary disease with (acute) exacerbation (10/01/18) Physical Therapy Treatment Note M3 PT-IP Subjective Start: 10/02/18 13:22 Freq: NEEDED Status: Active Protocol: Document 10/02/18 13:22 AB (Rec: 10/02/18 13:23 AB [id number]) Subjective Physical Therapy Visit Type Notes checked on pt but pt stated that he is still working on his lunch and does not known when he is going to be ready for PT. informed pt that PT will checked again at 145pm. pt agreed.
--- NOTE | 2018-10-02 13:43 | DIET.PN ---
Nutrition DX: Chronic Severe PCM r/t inflammation of chronic dz - COPD, cirrhosis - inadequate PO intake w/<75% EER > month AEB wt loss w/very low BMI, severe chest/tricep subcut fat loss, severe clavicle/deltoid muscle wasting. Plan: Educated on high protein/high calorie meal plan. Provided food list and recipes. Discussed cirrhosis dietary plan. Provide ensure enlive with meals. Pt agreeable.
--- NOTE | 2018-10-02 14:19 | PC.NURSE ---
Addendum entered by Dominique Reis R.N. 10/02/18 14:27: report given to adama- staff member at [facility] Original Note: pt preparing to dc to home ( [facility]) on po abx - levaquin 750mg , on room air most of day- as his spo2 did not indicate supplemental o2- although pt frequently requested or put on his own nasal cannula and reported relief of shortness of breath - even though it was turned off to o2 on the wall- he did not respond well to teaching about this and continued to wear nasal cannula- medicated x 1 this shift with iv morphine as his po rx had been held at admit-iv out and ok from michael at [facility] and they will be here within one hour for transport
--- NOTE | 2018-10-02 14:40 | PM.DS.1 ---
History of Present Illness Chief complaint: Difficulty Breathing Narrative: The patient is a 68-year-old male with PMH of HTN, AFIB, cardiomyopathy, alcoholism, alcoholic cirrhosis, HLD, anemia, COPD, severe emphysema, chronic pain, constipation, and depression. Patient presented to the ED on 09/30/2018 in the 1000 am hour, respectively, for worsening dyspnea. Symptoms onset 24-48 hours prior to ED presentation, progressively worsening. Underlying h/o COPD w/ severe emphysema and respiratory failure requiring supplemental oxygen. Patient reports chronic O2 use for the past 8 months. Admits to current tobacco dependence, 1/2 ppd. Reports to taking off O2 when going to smoke. Resides at the [facility], found by staff early am in respiratory distress. Associated symptoms include: hypoxia, exertional dyspnea, lightheadedness and non-productive cough. Reports being diagnosed w/ bronchitis on Friday. Reports increased use of bronchodilators for the past 2 days. Denies fever, chills, headache, CP, palpitations, peripheral edema, PND, syncopal events, abdominal pain, gastrointestinal distress, change in pattern of micturition, and blood in urine / stool. Diminished appetite last two days. Tolerating fluids. Baseline malnutrition w/ BMI 14. Reports stable weight. Discharge Providers Date of admission: 10/01/18 10:19 Consults: 09/30/18 10:22 Consult to Respiratory Therapy Evaluate & Treat Comment: Physician Instructions: Evaluate and treat 09/30/18 13:59 Consult to Dietitian, Adult Routine Comment: Reason For Exam: assessed at risk Consult to Respiratory Therapy Evaluate & Treat Comment: Physician Instructions: Evaluate and treat 10/02/18 12:07 Consult to Physical Therapy Evaluate & Treat Comment: Physician Instructions: Evaluate and Treat Discharge provider: Juanito Covarrubias MD Discharge Date: 10/02/18 Summary Discharge Diagnosis: 1. COPD with acute exacerbation 2. Acute on chronic hypoxic and hypercarbic respiratory failure 3. Leukocytosis, NOS 4. Coag-negative staph bacteremia, contaminant 5. Sputum culture positive for Staph aureus (sensitivities pending) thought not to be cause of COPD exacerbation 6. Cigarette dependence 7. Alcohol dependence 8. Paroxysmal atrial fibrillation 9. Severe protein calorie malnutrition with cachexia 10. History of cardiomyopathy, NOS Hospital Course: Patient was admitted primarily for COPD exacerbation. There is no evidence of pneumonia. He was treated with IV steroids and antibiotic. His breathing has substantially improved. On exam today he has bilateral diffuse wheezing though moving air well and actually satting 92% on room air. Blood culture grew coag-negative staphylococci us in 1 of 2 sites which is surely contaminant. Sputum culture grew heavy Staph aureus, final ID pending. However, it is unlikely the Staph aureus is cause of his COPD exacerbation. Patient has positive nasal MRSA. Patient has been [facility]-term resident of detention facility and 8 days prior to admission moved to [facility]. Therefore likely colonized with MRSA. At any rate he responded to steroids and non MRSA antibiotic coverage. He is being discharged back to [facility]. He does have significant leukocytosis on admission which stayed about the same but his baseline is unknown and unknown whether he was on course of steroids prior to admission. He has not had fever and procalcitonin normal. In terms of baseline physical status he is wheelchair-bound but PT did see patient prior to discharge and determined back to baseline in terms of transfers, etc. Time Spent with Patient Greater than 30 minutes Exam Vital Signs (past 8 hours): - 10/02/18 07:00 10/02/18 08:10 10/02/18 08:18 Temperature 99.3 F Pulse Rate 111 H 106 H Respiratory Rate 21 Blood Pressure 136/75 136/75 Pulse Oximetry 92 93 10/02/18 08:21 10/02/18 12:00 10/02/18 12:35 Temperature 99.0 F Pulse Rate 110 H 94 H 100 H Respiratory Rate 24 24 20 Blood Pressure 129/63 Pulse Oximetry 92 92 Fraction of Inspired Oxygen 24 Oxygen Delivery Method Room Air Oxygen Flow Rate 1 Objective Labs Result Diagrams: 10/01/18 05:10 10/01/18 05:10 Labs: Laboratory Results - last 24 hr 09/30/18 11:17 A. baumannii (PCR) Not detected Tammi albicans (PCR) Not detected C. glabrata (PCR) Not detected C. krusei (PCR) Not detected C. parapsilosis (PCR) Not detected C. tropicalis (PCR) Not detected Enterobacteriac sp PCR Not detected E. cloacae complex PCR Not detected Enterococcus sp PCR Not detected E. coli (PCR) Not detected H. influenzae (PCR) Not detected Klebsiella oxytoca PCR Not detected Klebsiella pneumoniae Not detected List. monocytogenes PCR Not detected N. meningitidis (PCR) Not detected Proteus species (PCR) Not detected Serratia marcescens PCR Not detected Staphylococcus sp PCR Detected H Staph aureus (PCR) Not detected mecA-Methicil Res Gene Not Reportable Streptococcus sp PCR Not detected Group A Strep (PCR) Not detected Strep agalactiae (PCR) Not detected Strep pneumoniae (PCR) Not detected P. aeruginosa (PCR) Not detected Abel/B-Vanco Res Genes Not Reportable KPC-Carbap Res Gene PCR Not Reportable Discharge Plan Discharge Plan Patient Disposition: Assisted Living Transfer to: [facility] Transportation: Facility vehicle Consult as needed: Dental, Hearing, Mental health, Podiatry and Vision Discharge Med Rec/Prescriptions Prescriptions: New prednisone 50 mg tablet 50 mg PO DAILY Qty: 5 RF: 0 levofloxacin 750 mg tablet 750 mg PO .hs Qty: 5 RF: 0 Continued atorvastatin 20 mg Tablet 40 mg PO BEDTIME RF: 0 aspirin 81 mg Tablet,Delayed Release (Dr/Ec) 81 mg PO DAILY RF: 0 multivitamin Tablet 1 tab PO DAILY RF: 0 tamsulosin 0.4 mg Capsule 0.4 mg PO DAILY RF: 0 paroxetine HCl [Paxil] 20 mg Tablet 20 mg PO DAILY RF: 0 pantoprazole 40 mg Tablet,Delayed Release (Dr/Ec) 40 mg PO DAILY RF: 0 losartan 25 mg Tablet 25 mg PO DAILY RF: 0 doxazosin 4 mg Tablet 4 mg PO DAILY RF: 0 fludrocortisone 0.1 mg Tablet 0.1 mg PO DAILY RF: 0 Spiriva with HandiHaler 18 mcg Capsule, W/Inhalation Device 1 cap INHALATION DAILY RF: 0 cholecalciferol (vitamin D3) [Vitamin D3] 2,000 unit Tablet 2,000 unit PO DAILY RF: 0 acetaminophen 325 mg Tablet 650 mg PO Q4H PRN (Reason: Pain, Moderate) RF: 0 diltiazem HCl 180 mg Capsule,Extended Release 24hr 180 mg PO BID RF: 0 magnesium hydroxide [Milk of Magnesia] 400 mg/5 mL Suspension 30 ml PO BEDTIME PRN (Reason: Constipation) RF: 0 bisacodyl 10 mg Suppository 10 mg NC DAILY RF: 0 Fleet Enema 19-7 gram/118 mL Enema 118 ml NC DAILY PRN (Reason: Constipation) RF: 0 morphine 15 mg Tablet Extended Release 15 mg PO Q8H RF: 0 albuterol sulfate 90 mcg/actuation Hfa Aerosol Inhaler 2 puff INHALATION Q4-6H PRN (Reason: Wheezing) RF: 0 Dulera 100-5 mcg/actuation Hfa Aerosol Inhaler 2 puff INHALATION BID RF: 0 Changed ipratropium-albuterol 0.5 mg-3 mg(2.5 mg base)/3 mL Solution For Nebulization 3 ml INHALATION QID Qty: 1 RF: 0 Follow up/Referrals: PCP, X [Other] - 3-5 Days Discharge Orders: Discharge (Order); Ordered 10/02/18 Ordered By: Juanito Covarrubias Provider Discharge Instructions Diet: Diet as Tolerated Discharge Data Attending Provider: Jenny Loaiza Admit Date/Time: 10/01/18 10:19
--- NOTE | 2018-10-02 14:44 | PT.IPTN ---
Current Diagnoses Chronic obstructive pulmonary disease with (acute) exacerbation (10/01/18) Physical Therapy Treatment Note M3 PT-IP Subjective Start: 10/02/18 13:22 Freq: NEEDED Status: Active Protocol: Document 10/02/18 14:43 LR (Rec: 10/02/18 14:44 [facility] [id number]) Subjective Physical Therapy Visit Type Type Cancellation Notes RN noted facility would be taking him back within an hour with plan to assist w/ transfer. Pt is w/c bound at baseline and has been able to transfer w/1PA nursing assist.
[2018-10-02] MEDS: levoFLOXacin 250 MG TABLET 750 MG PO (14:49)
== END 2018-10-02 15:01 | DRG 190 ==
LOC: ED 12:41 → ICU 12:49
PROVIDERS: Nurse Practitioner Gerontology; Admitting Provider Internal Medicine; Emergency Provider Emergency Medicine; Visit Provider Internal Medicine
DX: J44.1 Chronic obstructive pulmonary disease with (acute) exacerbation (principal); J96.21 Acute and chronic respiratory failure with hypoxia; E43 Unspecified severe protein-calorie malnutrition; J96.22 Acute and chronic respiratory failure with hypercapnia; Z68.1 Body mass index [BMI] 19.9 or less, adult; E27.40 Unspecified adrenocortical insufficiency; I42.9 Cardiomyopathy, unspecified; R64 Cachexia; R78.81 Bacteremia; Z99.81 Dependence on supplemental oxygen; F10.20 Alcohol dependence, uncomplicated; K70.30 Alcoholic cirrhosis of liver without ascites; Y90.0 Blood alcohol level of less than 20 mg/100 ml; I48.0 Paroxysmal atrial fibrillation; D72.828 Other elevated white blood cell count; I11.0 Hypertensive heart disease with heart failure; F32.9 Major depressive disorder, single episode, unspecified; G89.29 Other chronic pain; K59.00 Constipation, unspecified; N40.0 Benign prostatic hyperplasia without lower urinary tract symptoms; F17.210 Nicotine dependence, cigarettes, uncomplicated; B95.7 Other staphylococcus as the cause of diseases classified elsewhere
CPT/HCPCS: 36415; 36591; 36600; 71045; 71275; 80048; 80053; 80320; 81003; 82550; 82805; 83605; 83735; 83880; 84145; 84484; 85025; 85610; 85730; 87040; 87070; 87077; 87147; 87150; 87186; 87205; 87633; 87797; 93005; 93041; 94640; 94660; 94760; 96365; 96366; 99285; 99291; 99292; G0378; J0692; J1650; J1940; J1956; J2060; J2270; J2930; Q9967

== ENCOUNTER → 2018-10-08 18:31 | Outpatient (REF) | payer OTHER, MEDICAID, SELFPAY ==
[2018-09-30 13:14] VITALS: BMI 14.3
[2018-09-30 15:16] VITALS: PULSE 93; RESP 20; O2SAT 91
[2018-10-08 19:05] LABS: Add Manual Diff / Slide Review NO; Basophils Absolute Auto 0 /uL (0-100); Basophils Percent Auto 0.1 % (0-2); Blood Urea Nitrogen 20 mg/dL (9-20); Carbon Dioxide 30 mmol/L (22-32); Chloride 97 mmol/L (98-107); Eosinophils Absolute Auto 0 /uL (0-450); Estimated Glomerular Filt Rate > 60.0 mL/min (>60); Glucose 144 mg/dL (80-110); HEMOLYSIS < 15 (0-50); Hematocrit 34.5 % (41-53); Hemoglobin 11.3 g/dL (13.5-17.5); Lymphocytes Absolute Auto 700 /uL (1100-4500); Lymphocytes Percent Auto 2.4 % (25-40); Mean Corpuscular HGB Conc 32.8 % (30-36); Mean Corpuscular Hemoglobin 31.4 PG (26-34); Mean Corpuscular Volume 95.8 fL (80-100); Monocytes Absolute Auto 500 /uL (0-900); Monocytes Percent Auto 1.7 % (3-14); Neutrophils Absolute Auto 28500 /uL (1500-7000); Neutrophils Percent Auto 95.8 % (50-75); Platelet Count 302 X10^3/uL (150-400); Potassium 4.2 mmol/L (3.4-5.1); Red Cell Distribution Width 15.8 % (11.6-14.8); Sodium 138 mmol/L (137-145); White Blood Cell Count 29.8 X10^3/uL (4.5-11.0)
== END ==
LOC: LAB 18:31
PROVIDERS: Visit Provider Nurse Practitioner Family
DX: J44.9 Chronic obstructive pulmonary disease, unspecified (principal); J18.9 Pneumonia, unspecified organism
CPT/HCPCS: 80048; 85025

== ENCOUNTER 2018-10-15 11:47 | Emergency (ER) | payer OTHER, MEDICAID, SELFPAY ==
[2018-09-30 13:14] VITALS: BMI 14.3
[2018-09-30 15:16] VITALS: PULSE 93; RESP 20; O2SAT 91
[2018-10-15] VITALS (7 sets, daily range): BP systolic 113–128; BP diastolic 60–82; PULSE 71–91; RESP 19; TEMP 36.8–37.1; O2SAT 92–98
--- NOTE | 2018-10-15 12:19 | ED.URI ---
HPI - URI/Sore Throat <JOAN Phan - Last Filed: 10/15/18 21:28> General Chief Complaint: Upper Respiratory Symptoms Stated Complaint: MRSA Time Seen by Provider: 10/15/18 12:19 Source: patient and EMS Mode of arrival: EMS Limitations: no limitations History of Present Illness HPI Narrative: 68-year-old male with significant history of COPD that is an everyday smoker brought over from the care facility due to having a fever of 105 is measured today. Patient is not complaining any chest pain or shortness of breath at this timeframe. He denies any discomfort or concerns at this timeframe. He presents with no fever at the time of check-in. He was recently treated for a pneumonia he did have a positive nasal swab for MRSA. He is currently on antibiotics he is taking Septra daily. He is tolerating p.o. intake. No nausea or vomiting. patient states that his shortness of breath is at baseline. He denies any productive cough. He denies any urinary symptoms. No abdominal pain. Related Data Home Medications Medication Instructions Recorded Confirmed Dulera 2 puff INHALATION BID 09/30/18 10/15/18 Spiriva with HandiHaler 1 cap INHALATION DAILY 09/30/18 10/15/18 acetaminophen 650 mg PO Q4H PRN 09/30/18 10/15/18 albuterol sulfate 2 puff INHALATION Q4H PRN 09/30/18 10/15/18 aspirin 81 mg PO DAILY 09/30/18 10/15/18 atorvastatin 20 mg PO BEDTIME 09/30/18 10/15/18 bisacodyl 10 mg WI PRN PRN 09/30/18 10/15/18 cholecalciferol (vitamin D3) 2,000 unit PO DAILY 09/30/18 10/15/18 [Vitamin D3] diltiazem HCl 180 mg PO BID 09/30/18 10/15/18 doxazosin 4 mg PO DAILY 09/30/18 10/15/18 fludrocortisone 0.1 mg PO DAILY 09/30/18 10/15/18 losartan 25 mg PO DAILY 09/30/18 10/15/18 magnesium hydroxide [Milk of 30 ml PO PRN PRN 09/30/18 10/15/18 Magnesia] morphine 15 mg PO Q8H 09/30/18 10/15/18 pantoprazole 40 mg PO DAILY 09/30/18 10/15/18 paroxetine HCl [Paxil] 20 mg PO DAILY 09/30/18 10/15/18 tamsulosin 0.4 mg PO QPM 09/30/18 10/15/18 lorazepam 0.5 mg PO Q4H PRN 10/15/18 10/15/18 multivitamin with minerals 1 tab PO DAILY 10/15/18 10/15/18 sulfamethoxazole-trimethoprim 1 tab PO Q12HR 10/15/18 10/15/18 Previous Rx's Medication Instructions Recorded ipratropium-albuterol 3 ml INHALATION QID #1 ml 10/02/18 Allergies Allergy/AdvReac Type Severity Reaction Status Date / Time No Known Drug Allergies Allergy Verified 09/30/18 10:40 Review of Systems <JOAN Phan - Last Filed: 10/15/18 21:28> Constitutional Reports fever(s) Eyes Denies change in vision, Denies eye discharge, Denies irritation and Denies loss of vision ENT Ears, Nose, Mouth, and Throat: Denies change in voice, Denies neck pain and Denies sore throat Cardiovascular Denies chest pain, Denies irregular heart rhythm, Denies lightheadedness, Denies palpitations, Reports dyspnea and Denies orthopnea Respiratory Reports cough and Reports dyspnea Gastrointestinal Gastrointestinal: Denies abdominal pain, Denies change in bowel habits, Denies diarrhea, Denies nausea and Denies vomiting Genitourinary Denies hematuria, Denies flank pain, Denies urinary incontinence and Denies urinary urgency Musculoskeletal Denies neck pain Integumentary/Breasts Denies pruritus, Denies erythema, Denies rash and Denies wounds Neurologic Denies confusion and Denies loss of vision Psychiatric Denies anxiety, Denies confusion, Denies depression, Denies homicidal ideation and Denies suicidal ideation Endocrine Denies palpitations Hematologic/Lymphatic Denies easy bruising PFSH <JOAN Phan - Last Filed: 10/15/18 21:28> Medical History Alcohol abuse (Acute) Alcoholic cirrhosis of liver without ascites (Acute) Anemia (Acute) Atrial fibrillation (Acute) BPH (benign prostatic hyperplasia) (Acute) COPD (chronic obstructive pulmonary disease) (Acute) Cardiomyopathy (Acute) Chronic pain (Acute) Constipation (Acute) Depression (Acute) Femur fracture, right (Acute) Hyperlipidemia (Acute) Hypertension (Acute) Osteoarthritis (Acute) Peripheral vascular disease (Acute) Family History Mother No known health problems Father No known health problems Social History alcohol intake: current Social History alcohol intake: current Exam <JOAN Phan - Last Filed: 10/15/18 21:28> Initial Vital Signs Initial Vital Signs: Vital Signs Temperature 98.7 F 10/15/18 12:09 Pulse Rate 89 10/15/18 12:09 Respiratory Rate 19 10/15/18 12:09 Blood Pressure 128/65 10/15/18 12:09 Pulse Oximetry 98 10/15/18 12:09 Const General: cooperative and well developed Nutritional Appearance: thin and underweight Orientation: alert, awake, oriented x3 and not confused HENKS Mouth: oral mucosae normal and moist mucous membranes Eyes Conjunctivae: conjunctivae normal Sclera: sclerae normal Pupils: PERRL EOM: EOM intact bilaterally Resp Effort & Inspection: normal respiratory effort, able to speak in complete sentences, no respiratory distress and no use of accessory muscles Auscultation: no rales, rhonchi and wheezes Cardio Rate: regular rate Rhythm: regular rhythm Heart Sounds: no click, no gallops, no murmurs and no rubs Pulses: normal peripheral pulses Skin General: no rashes or lesions noted, No jaundice and No petechiae Neuro General: alert, awake, oriented x3 and no focal motor deficits Speech: speech normal <Robin Keane DO - Last Filed: 10/20/18 07:35> Initial Vital Signs Initial Vital Signs: Vital Signs Temperature 98.7 F 10/15/18 12:09 Pulse Rate 89 10/15/18 12:09 Respiratory Rate 19 10/15/18 12:09 Blood Pressure 128/65 10/15/18 12:09 Pulse Oximetry 98 10/15/18 12:09 Course <JOAN Phan - Last Filed: 10/15/18 21:28> Orders Ordered: Discontinued Medications Albuterol/Ipratropium (Duoneb) 3 ml INH NOW ONE Stop: 10/15/18 12:41 Last Admin: 10/15/18 13:52 Dose: 3 ml Sodium Chloride (Normal Saline 0.9%) 1,000 mls @ 150 mls/hr IV CONT SHANON Last Infusion: 10/15/18 17:35 Dose: 0 mls/hr Infusion: 10/15/18 16:30 Dose: 500 mls/hr Admin: 10/15/18 13:55 Dose: 150 mls/hr Vital Signs - 8 hr 10/15/18 14:00 10/15/18 14:57 10/15/18 15:02 Temperature Pulse Rate 71 86 Respiratory Rate Blood Pressure Blood Pressure [Left Arm] 113/60 Pulse Oximetry 92 92 10/15/18 15:05 10/15/18 17:21 10/15/18 18:28 Temperature 98.7 F 98.3 F Pulse Rate 86 91 H Respiratory Rate 19 19 Blood Pressure 128/65 Blood Pressure [Left Arm] 119/82 Pulse Oximetry 92 94 <Robin Keane DO - Last Filed: 10/20/18 07:35> Orders Ordered: Discontinued Medications Albuterol/Ipratropium (Duoneb) 3 ml INH NOW ONE Stop: 10/15/18 12:41 Last Admin: 10/15/18 13:52 Dose: 3 ml Sodium Chloride (Normal Saline 0.9%) 1,000 mls @ 150 mls/hr IV CONT SHANON Last Infusion: 10/15/18 17:35 Dose: 0 mls/hr Infusion: 10/15/18 16:30 Dose: 500 mls/hr Admin: 10/15/18 13:55 Dose: 150 mls/hr Vital Signs - 8 hr 10/15/18 14:00 10/15/18 14:57 10/15/18 15:02 Temperature Pulse Rate 71 86 Respiratory Rate Blood Pressure Blood Pressure [Left Arm] 113/60 Pulse Oximetry 92 92 10/15/18 15:05 10/15/18 17:21 10/15/18 18:28 Temperature 98.7 F 98.3 F Pulse Rate 86 91 H Respiratory Rate 19 19 Blood Pressure 128/65 Blood Pressure [Left Arm] 119/82 Pulse Oximetry 92 94 MDM - URI/Sore Throat <JOAN Phan - Last Filed: 02/21/19 21:28> Lab Data Result diagrams: 10/15/18 12:45 10/15/18 12:45 Lab Results 10/15/18 10/15/18 10/15/18 Range/Units 12:45 12:45 12:45 WBC 14.3 H (4.5-11.0) X10^3/uL RBC 3.83 L (4.5-5.9) X10^6/uL Hgb 12.0 L (13.5-17.5) g/dL Hct 36.5 L (41-53) % MCV 95.4 (80-100) fL MCH 31.3 (26-34) PG MCHC 32.8 (30-36) % RDW 16.1 H (11.6-14.8) % Plt Count 349 (150-400) X10^3/uL Neut % (Auto) 74.2 (50-75) % Lymph % (Auto) 14.6 L (25-40) % Mcnairy % (Auto) 9.8 (3-14) % Eos % (Auto) 0.6 L (2-4) % Baso % (Auto) 0.8 (0-2) % Neut # (Auto) 92216 H (7824-8272) /uL Lymph # (Auto) 2100 (5112-4913) /uL Mcnairy # (Auto) 1400 H (0-900) /uL Eos # (Auto) 100 (0-450) /uL Baso # (Auto) 100 (0-100) /uL D-Dimer 2680 H (<230) ng/mL ABG pH (7.35-7.45) ABG pCO2 (35-45) mmHg ABG pO2 (80-100) mmHg ABG HCO3 (22-26) mmol/L ABG Total CO2 (21-31) mmol/L ABG O2 Saturation (95-100) % ABG Base Excess (-2-2) mmol/L FiO2 Sodium 138 (137-145) mmol/L Potassium 4.3 (3.4-5.1) mmol/L Chloride 100 (98-107) mmol/L Carbon Dioxide 32 (22-32) mmol/L BUN 21 H (9-20) mg/dL Creatinine 0.70 (0.66-1.25) mg/dL Estimated GFR > 60.0 (>60) mL/min BUN/Creatinine Ratio 30.0 H (6-22) Glucose 112 H (80-110) mg/dL Lactate (0.7-2.1) mmol/L Calcium 8.8 (8.4-10.2) mg/dL Magnesium 2.0 (1.6-2.3) mg/dL Total Bilirubin (0.2-1.3) mg/dL Conjugated Bilirubin (0.0-0.3) md/dL Unconjugated Bilirubin (0.0-1.1) mg/dL AST (17-59) IU/L ALT (21-72) IU/L Alkaline Phosphatase (38-126) U/L Total Creatine Kinase 65 (55-170) U/L CK-MB (CK-2) TNP CK-MB (CK-2) Rel Index TNP Troponin I < 0.012 (0.01-0.034) ng/mL B-Natriuretic Peptide < 100 (<100) Total Protein (6.3-8.2) g/dL Albumin (3.5-5.0) g/dL Globulin (1.7-4.1) g/dL Albumin/Globulin Ratio (1.0-2.8) Procalcitonin (<0.5) ng/mL Urine RBC (0-5/HPF) Urine WBC (0-5/HPF) Ur Squamous Epith Cells Urine Bacteria (None) Ur Culture Indicated? Influenza A & B (PCR) (Negative) 10/15/18 10/15/18 10/15/18 Range/Units 12:45 12:45 12:58 WBC (4.5-11.0) X10^3/uL RBC (4.5-5.9) X10^6/uL Hgb (13.5-17.5) g/dL Hct (41-53) % MCV (80-100) fL MCH (26-34) PG MCHC (30-36) % RDW (11.6-14.8) % Plt Count (150-400) X10^3/uL Neut % (Auto) (50-75) % Lymph % (Auto) (25-40) % Mcnairy % (Auto) (3-14) % Eos % (Auto) (2-4) % Baso % (Auto) (0-2) % Neut # (Auto) (0807-5624) /uL Lymph # (Auto) (9886-8613) /uL Mcnairy # (Auto) (0-900) /uL Eos # (Auto) (0-450) /uL Baso # (Auto) (0-100) /uL D-Dimer (<230) ng/mL ABG pH (7.35-7.45) ABG pCO2 (35-45) mmHg ABG pO2 (80-100) mmHg ABG HCO3 (22-26) mmol/L ABG Total CO2 (21-31) mmol/L ABG O2 Saturation (95-100) % ABG Base Excess (-2-2) mmol/L FiO2 Sodium (137-145) mmol/L Potassium (3.4-5.1) mmol/L Chloride (98-107) mmol/L Carbon Dioxide (22-32) mmol/L BUN (9-20) mg/dL Creatinine (0.66-1.25) mg/dL Estimated GFR (>60) mL/min BUN/Creatinine Ratio (6-22) Glucose (80-110) mg/dL Lactate 0.7 (0.7-2.1) mmol/L Calcium (8.4-10.2) mg/dL Magnesium (1.6-2.3) mg/dL Total Bilirubin 0.6 (0.2-1.3) mg/dL Conjugated Bilirubin 0.0 (0.0-0.3) md/dL Unconjugated Bilirubin 0.3 (0.0-1.1) mg/dL AST 49 (17-59) IU/L ALT 42 (21-72) IU/L Alkaline Phosphatase 71 (38-126) U/L Total Creatine Kinase (55-170) U/L CK-MB (CK-2) CK-MB (CK-2) Rel Index Troponin I (0.01-0.034) ng/mL B-Natriuretic Peptide (<100) Total Protein 6.4 (6.3-8.2) g/dL Albumin 3.7 (3.5-5.0) g/dL Globulin 2.7 (1.7-4.1) g/dL Albumin/Globulin Ratio 1.4 (1.0-2.8) Procalcitonin < 0.05 (<0.5) ng/mL Urine RBC (0-5/HPF) Urine WBC (0-5/HPF) Ur Squamous Epith Cells Urine Bacteria (None) Ur Culture Indicated? Influenza A & B (PCR) (Negative) 10/15/18 10/15/18 10/15/18 Range/Units 13:31 14:42 16:28 WBC (4.5-11.0) X10^3/uL RBC (4.5-5.9) X10^6/uL Hgb (13.5-17.5) g/dL Hct (41-53) % MCV (80-100) fL MCH (26-34) PG MCHC (30-36) % RDW (11.6-14.8) % Plt Count (150-400) X10^3/uL Neut % (Auto) (50-75) % Lymph % (Auto) (25-40) % Mcnairy % (Auto) (3-14) % Eos % (Auto) (2-4) % Baso % (Auto) (0-2) % Neut # (Auto) (5386-9795) /uL Lymph # (Auto) (8043-6895) /uL Mcnairy # (Auto) (0-900) /uL Eos # (Auto) (0-450) /uL Baso # (Auto) (0-100) /uL D-Dimer (<230) ng/mL ABG pH 7.43 (7.35-7.45) ABG pCO2 46.4 H (35-45) mmHg ABG pO2 71 L (80-100) mmHg ABG HCO3 31 H (22-26) mmol/L ABG Total CO2 32 H (21-31) mmol/L ABG O2 Saturation 94 L (95-100) % ABG Base Excess 7.0 H (-2-2) mmol/L FiO2 0.32 Sodium (137-145) mmol/L Potassium (3.4-5.1) mmol/L Chloride (98-107) mmol/L Carbon Dioxide (22-32) mmol/L BUN (9-20) mg/dL Creatinine (0.66-1.25) mg/dL Estimated GFR (>60) mL/min BUN/Creatinine Ratio (6-22) Glucose (80-110) mg/dL Lactate (0.7-2.1) mmol/L Calcium (8.4-10.2) mg/dL Magnesium (1.6-2.3) mg/dL Total Bilirubin (0.2-1.3) mg/dL Conjugated Bilirubin (0.0-0.3) md/dL Unconjugated Bilirubin (0.0-1.1) mg/dL AST (17-59) IU/L ALT (21-72) IU/L Alkaline Phosphatase (38-126) U/L Total Creatine Kinase (55-170) U/L CK-MB (CK-2) CK-MB (CK-2) Rel Index Troponin I (0.01-0.034) ng/mL B-Natriuretic Peptide (<100) Total Protein (6.3-8.2) g/dL Albumin (3.5-5.0) g/dL Globulin (1.7-4.1) g/dL Albumin/Globulin Ratio (1.0-2.8) Procalcitonin (<0.5) ng/mL Urine RBC 0-1/hpf (0-5/HPF) Urine WBC 1-5/hpf (0-5/HPF) Ur Squamous Epith Cells 0-1 /hpf Urine Bacteria None seen (None) Ur Culture Indicated? Specimen cultured Influenza A & B (PCR) Negative (Negative) Urine Dip Bedside Urine Glucose 100 mg/dl Bedside Urine Bilirubin + 1 Bedside Urine Ketone +/- 5 Urine Specific [place] 1.015 Bedside Urine Occult Blood - Negative Bedside Urine pH 7.0 Bedside Urine Protein +/- 15 Bedside Urine Urobilinogen 1+ 2mg Bedside Urine Nitrite - Negative Bedside Urine Leukocytes +/- [address] scan - chest: Radiologist's impression: [address] [address] [address] Scan Report Signed Patient: Teetee Clayton#: [id number] : 2Acct:[id number] Age/Sex: 68 / MDate of Service: 10/15/18 Loc: ED Accession Number: [id number] Procedure: CT angio chest PE protocol Ordering Provider: Mikey Rodriguez PROCEDURE: CT ANGIO CHEST PE PROTOCOL INDICATIONS: fever, shortness of breath and elevated D-dimer TECHNIQUE: After the administration of intravenous contrast, 2 mm thick sections acquired from the pulmonary apices to the posterior costophrenic angles. 3-dimensional maximum intensity projection (MIP) coronal and sagittal reformats were then acquired through the thorax. For radiation dose reduction, the following was used: automated exposure control, adjustment of mA and/or kV according to patient size. COMPARISON: [facility], CT, CT ANGIO CHEST PE PROTOCOL, 09/30/2018, 17:20. FINDINGS: Image quality: Excellent. Pulmonary arteries: Pulmonary arteries are normal in size, and demonstrate no intraluminal filling defects to suggest central pulmonary embolism. Lungs and pleura: There is severe emphysema. No pleural effusions or pneumothorax. Central and peripheral airways are patent. Mediastinum: Heart size is normal, without pericardial effusion. No mediastinal or hilar adenopathy. Thoracic aorta is normal in caliber and enhancement. Esophagus is normal in caliber, without hiatal hernia. Bones and chest wall: Severe compression fracture of T7. No suspicious bony lesions. Ribs and thoracic spine appear intact throughout. Thyroid gland is normal. No axillary or supraclavicular adenopathy. Abdomen: Visualized upper abdominal solid organs appear normal in the early arterial phase of enhancement. IMPRESSION: 1. No evidence for pulmonary embolism. 2. Severe emphysema. 3. Severe compression fracture of T7. Dictated by: Amrik Nichols M.D. on 10/15/2018 at 15:38 Approved by: Amrik Nichols M.D. on 10/15/2018 at 15:46 Chest x-ray: Radiologist's impression: [address] [address] XRay Report Signed Patient: Giovanni ClaytonMR#: [id number] : 2Acct:[id number] Age/Sex: 68 / MDate of Service: 10/15/18 Loc: ED Accession Number: [id number] Procedure: XR chest 1V Ordering Provider: Mikey Rodriguez PROCEDURE: XR CHEST 1V INDICATIONS: fever shortness of breath TECHNIQUE: One view of the chest was acquired. COMPARISON: [facility], CR, XR CHEST 1V, 09/30/2018, 10:57. FINDINGS: Surgical changes and devices: None. Lungs and pleura: Lungs are abnormal with severe pulmonary hyperexpansion and chronic interstitial prominence consistent with long-standing smoking history. No pleural effusions or pneumothorax. Mediastinum: Mediastinal contours appear normal. Heart size is normal. Bones and chest wall: No suspicious bony lesions. Overlying soft tissues appear unremarkable. IMPRESSION: Severe COPD, no definite acute disease is found. Chronic interstitial prominence. Dictated by: Bishnu Franklin M.D. on 10/15/2018 at 13:01 Approved by: Bishnu Franklin M.D. on 10/15/2018 at 13:02 [facility] [place] Narrative Medical decision making narrative: Chest x-ray was obtained and shows severe COPD no acute findings. CBC shows elevated white count of 14.5 which is lowered significantly from his white count from the 14th. BNP was obtained and was unremarkable. Ammonia was resulted today from prior lab value that resulted at 45. His liver functions were unremarkable. Urinalysis did not appear to show a urinary tract infection. D-dimer was obtained and was elevated [place] 2700. chest CT was obtained was negative for a PE. patient is alert oriented x3. discussed case with Dr. Rouse who will follow the patient in the next few days. He is released back to a care facility for any worsening symptoms return to the emergency room. Source of fever is not found today. Patient did not have a fever while in the emergency room today. <Robin Keane, DO - Last Filed: 10/20/18 07:35> Lab Data Lab Results 10/15/18 10/15/18 10/15/18 Range/Units 12:45 12:45 12:45 WBC 14.3 H (4.5-11.0) X10^3/uL RBC 3.83 L (4.5-5.9) X10^6/uL Hgb 12.0 L (13.5-17.5) g/dL Hct 36.5 L (41-53) % MCV 95.4 (80-100) fL MCH 31.3 (26-34) PG MCHC 32.8 (30-36) % RDW 16.1 H (11.6-14.8) % Plt Count 349 (150-400) X10^3/uL Neut % (Auto) 74.2 (50-75) % Lymph % (Auto) 14.6 L (25-40) % Mcnairy % (Auto) 9.8 (3-14) % Eos % (Auto) 0.6 L (2-4) % Baso % (Auto) 0.8 (0-2) % Neut # (Auto) 34512 H (5687-9917) /uL Lymph # (Auto) 2100 (5146-0629) /uL Mcnairy # (Auto) 1400 H (0-900) /uL Eos # (Auto) 100 (0-450) /uL Baso # (Auto) 100 (0-100) /uL D-Dimer 2680 H (<230) ng/mL ABG pH (7.35-7.45) ABG pCO2 (35-45) mmHg ABG pO2 (80-100) mmHg ABG HCO3 (22-26) mmol/L ABG Total CO2 (21-31) mmol/L ABG O2 Saturation (95-100) % ABG Base Excess (-2-2) mmol/L FiO2 Sodium 138 (137-145) mmol/L Potassium 4.3 (3.4-5.1) mmol/L Chloride 100 (98-107) mmol/L Carbon Dioxide 32 (22-32) mmol/L BUN 21 H (9-20) mg/dL Creatinine 0.70 (0.66-1.25) mg/dL Estimated GFR > 60.0 (>60) mL/min BUN/Creatinine Ratio 30.0 H (6-22) Glucose 112 H (80-110) mg/dL Lactate (0.7-2.1) mmol/L Calcium 8.8 (8.4-10.2) mg/dL Magnesium 2.0 (1.6-2.3) mg/dL Total Bilirubin (0.2-1.3) mg/dL Conjugated Bilirubin (0.0-0.3) md/dL Unconjugated Bilirubin (0.0-1.1) mg/dL AST (17-59) IU/L ALT (21-72) IU/L Alkaline Phosphatase (38-126) U/L Total Creatine Kinase 65 (55-170) U/L CK-MB (CK-2) TNP CK-MB (CK-2) Rel Index TNP Troponin I < 0.012 (0.01-0.034) ng/mL B-Natriuretic Peptide < 100 (<100) Total Protein (6.3-8.2) g/dL Albumin (3.5-5.0) g/dL Globulin (1.7-4.1) g/dL Albumin/Globulin Ratio (1.0-2.8) Procalcitonin (<0.5) ng/mL Urine RBC (0-5/HPF) Urine WBC (0-5/HPF) Ur Squamous Epith Cells Urine Bacteria (None) Ur Culture Indicated? Influenza A & B (PCR) (Negative) 10/15/18 10/15/18 10/15/18 Range/Units 12:45 12:45 12:58 WBC (4.5-11.0) X10^3/uL RBC (4.5-5.9) X10^6/uL Hgb (13.5-17.5) g/dL Hct (41-53) % MCV (80-100) fL MCH (26-34) PG MCHC (30-36) % RDW (11.6-14.8) % Plt Count (150-400) X10^3/uL Neut % (Auto) (50-75) % Lymph % (Auto) (25-40) % Mcnairy % (Auto) (3-14) % Eos % (Auto) (2-4) % Baso % (Auto) (0-2) % Neut # (Auto) (0393-5316) /uL Lymph # (Auto) (3287-3957) /uL Mcnairy # (Auto) (0-900) /uL Eos # (Auto) (0-450) /uL Baso # (Auto) (0-100) /uL D-Dimer (<230) ng/mL ABG pH (7.35-7.45) ABG pCO2 (35-45) mmHg ABG pO2 (80-100) mmHg ABG HCO3 (22-26) mmol/L ABG Total CO2 (21-31) mmol/L ABG O2 Saturation (95-100) % ABG Base Excess (-2-2) mmol/L FiO2 Sodium (137-145) mmol/L Potassium (3.4-5.1) mmol/L Chloride (98-107) mmol/L Carbon Dioxide (22-32) mmol/L BUN (9-20) mg/dL Creatinine (0.66-1.25) mg/dL Estimated GFR (>60) mL/min BUN/Creatinine Ratio (6-22) Glucose (80-110) mg/dL Lactate 0.7 (0.7-2.1) mmol/L Calcium (8.4-10.2) mg/dL Magnesium (1.6-2.3) mg/dL Total Bilirubin 0.6 (0.2-1.3) mg/dL Conjugated Bilirubin 0.0 (0.0-0.3) md/dL Unconjugated Bilirubin 0.3 (0.0-1.1) mg/dL AST 49 (17-59) IU/L ALT 42 (21-72) IU/L Alkaline Phosphatase 71 (38-126) U/L Total Creatine Kinase (55-170) U/L CK-MB (CK-2) CK-MB (CK-2) Rel Index Troponin I (0.01-0.034) ng/mL B-Natriuretic Peptide (<100) Total Protein 6.4 (6.3-8.2) g/dL Albumin 3.7 (3.5-5.0) g/dL Globulin 2.7 (1.7-4.1) g/dL Albumin/Globulin Ratio 1.4 (1.0-2.8) Procalcitonin < 0.05 (<0.5) ng/mL Urine RBC (0-5/HPF) Urine WBC (0-5/HPF) Ur Squamous Epith Cells Urine Bacteria (None) Ur Culture Indicated? Influenza A & B (PCR) (Negative) 10/15/18 10/15/18 10/15/18 Range/Units 13:31 14:42 16:28 WBC (4.5-11.0) X10^3/uL RBC (4.5-5.9) X10^6/uL Hgb (13.5-17.5) g/dL Hct (41-53) % MCV (80-100) fL MCH (26-34) PG MCHC (30-36) % RDW (11.6-14.8) % Plt Count (150-400) X10^3/uL Neut % (Auto) (50-75) % Lymph % (Auto) (25-40) % Mcnairy % (Auto) (3-14) % Eos % (Auto) (2-4) % Baso % (Auto) (0-2) % Neut # (Auto) (7467-1666) /uL Lymph # (Auto) (7411-7586) /uL [place] # (Auto) (0-900) /uL Eos # (Auto) (0-450) /uL Baso # (Auto) (0-100) /uL D-Dimer (<230) ng/mL ABG pH 7.43 (7.35-7.45) ABG pCO2 46.4 H (35-45) mmHg ABG pO2 71 L (80-100) mmHg ABG HCO3 31 H (22-26) mmol/L ABG Total CO2 32 H (21-31) mmol/L ABG O2 Saturation 94 L (95-100) % ABG Base Excess 7.0 H (-2-2) mmol/L FiO2 0.32 Sodium (137-145) mmol/L Potassium (3.4-5.1) mmol/L Chloride (98-107) mmol/L Carbon Dioxide (22-32) mmol/L BUN (9-20) mg/dL Creatinine (0.66-1.25) mg/dL Estimated GFR (>60) mL/min BUN/Creatinine Ratio (6-22) Glucose (80-110) mg/dL Lactate (0.7-2.1) mmol/L Calcium (8.4-10.2) mg/dL Magnesium (1.6-2.3) mg/dL Total Bilirubin (0.2-1.3) mg/dL Conjugated Bilirubin (0.0-0.3) md/dL Unconjugated Bilirubin (0.0-1.1) mg/dL AST (17-59) IU/L ALT (21-72) IU/L Alkaline Phosphatase (38-126) U/L Total Creatine Kinase (55-170) U/L CK-MB (CK-2) CK-MB (CK-2) Rel Index Troponin I (0.01-0.034) ng/mL B-Natriuretic Peptide (<100) Total Protein (6.3-8.2) g/dL Albumin (3.5-5.0) g/dL Globulin (1.7-4.1) g/dL Albumin/Globulin Ratio (1.0-2.8) Procalcitonin (<0.5) ng/mL Urine RBC 0-1/hpf (0-5/HPF) Urine WBC 1-5/hpf (0-5/HPF) Ur Squamous Epith Cells 0-1 /hpf Urine Bacteria None seen (None) Ur Culture Indicated? Specimen cultured Influenza A & B (PCR) Negative (Negative) Urine Dip Bedside Urine Glucose 100 mg/dl Bedside Urine Bilirubin + 1 Bedside Urine Ketone +/- 5 Urine Specific [place] 1.015 Bedside Urine Occult Blood - Negative Bedside Urine pH 7.0 Bedside Urine Protein +/- 15 Bedside Urine Urobilinogen 1+ 2mg Bedside Urine Nitrite - Negative Bedside Urine Leukocytes +/- 15 Esterase Discharge Plan Departure Patient Disposition: Home Clinical Impression: Fever Qualifiers: Fever type: unspecified Qualified Code(s): R50.9 - Fever, unspecified Discharge Date/Time: 10/15/18 18:30 Interventions: ED Discharge Assessment Last Done: 10/15/18 18:29 Instructions: DI for Fever (Symptom) -- Adult Activity Restrictions/Additional Instructions: imaging and laboratory results today were unremarkable. Source of fever is not found. Current medications as prescribed follow up with primary care provider in the next day or 2 for re-evaluation. For any worsening symptoms return to the emergency room. Prescriptions: No Action atorvastatin 20 mg Tablet 20 mg PO BEDTIME RF: 0 aspirin 81 mg Tablet,Delayed Release (Dr/Ec) 81 mg PO DAILY RF: 0 tamsulosin 0.4 mg Capsule 0.4 mg PO QPM RF: 0 paroxetine HCl [Paxil] 20 mg Tablet 20 mg PO DAILY RF: 0 pantoprazole 40 mg Tablet,Delayed Release (Dr/Ec) 40 mg PO DAILY RF: 0 losartan 25 mg Tablet 25 mg PO DAILY RF: 0 doxazosin 4 mg Tablet 4 mg PO DAILY RF: 0 fludrocortisone 0.1 mg Tablet 0.1 mg PO DAILY RF: 0 Spiriva with HandiHaler 18 mcg Capsule, W/Inhalation Device 1 cap INHALATION DAILY RF: 0 cholecalciferol (vitamin D3) [Vitamin D3] 2,000 unit Tablet 2,000 unit PO DAILY RF: 0 acetaminophen 325 mg Tablet 650 mg PO Q4H PRN (Reason: Pain, Moderate) RF: 0 diltiazem HCl 180 mg Capsule,Extended Release 24hr 180 mg PO BID RF: 0 magnesium hydroxide [Milk of Magnesia] 400 mg/5 mL Suspension 30 ml PO PRN PRN (Reason: Constipation) RF: 0 bisacodyl 10 mg Suppository 10 mg WI PRN PRN (Reason: Constipation) RF: 0 morphine 15 mg Tablet Extended Release 15 mg PO Q8H RF: 0 albuterol sulfate 90 mcg/actuation Hfa Aerosol Inhaler 2 puff INHALATION Q4H PRN (Reason: Wheezing) RF: 0 Dulera 100-5 mcg/actuation Hfa Aerosol Inhaler 2 puff INHALATION BID RF: 0 ipratropium-albuterol 0.5 mg-3 mg(2.5 mg base)/3 mL Solution For Nebulization 3 ml INHALATION QID Qty: 1 RF: 0 multivitamin with minerals Tablet 1 tab PO DAILY RF: 0 sulfamethoxazole-trimethoprim 800-160 mg tablet 1 tab PO Q12HR RF: 0 lorazepam 0.5 mg tablet 0.5 mg PO Q4H PRN (Reason: Anxiety) RF: 0 Referrals: Ruby Max MD [Physician] - <Robin Keane DO - Last Filed: 10/20/18 07:35> Cosign ED Attending Debra Attestation: I was available for consultation during this patient's emergency department encounter
--- NOTE | 2018-10-15 12:42 | DI.RAD.S_ITS ---
PROCEDURE: XR CHEST 1V INDICATIONS: fever shortness of breath TECHNIQUE: One view of the chest was acquired. COMPARISON: [facility], CR, XR CHEST 1V, 09/30/2018, 10:57. FINDINGS: Surgical changes and devices: None. Lungs and pleura: Lungs are abnormal with severe pulmonary hyperexpansion and chronic interstitial prominence consistent with long-standing smoking history. No pleural effusions or pneumothorax. Mediastinum: Mediastinal contours appear normal. Heart size is normal. Bones and chest wall: No suspicious bony lesions. Overlying soft tissues appear unremarkable. IMPRESSION: Severe COPD, no definite acute disease is found. Chronic interstitial prominence. Dictated by: Bishnu Franklin M.D. on 10/15/2018 at 13:01 Approved by: Bishnu Franklin M.D. on 10/15/2018 at 13:02
[2018-10-15 13:06] LABS: Add Manual Diff / Slide Review NO; Basophils Absolute Auto 100 /uL (0-100); Basophils Percent Auto 0.8 % (0-2); Eosinophils Absolute Auto 100 /uL (0-450); Eosinophils Percent Auto 0.6 % (2-4); Hematocrit 36.5 % (41-53); Lymphocytes Absolute Auto 2100 /uL (1100-4500); Lymphocytes Percent Auto 14.6 % (25-40); Mean Corpuscular HGB Conc 32.8 % (30-36); Mean Corpuscular Hemoglobin 31.3 PG (26-34); Mean Corpuscular Volume 95.4 fL (80-100); Monocytes Absolute Auto 1400 /uL (0-900); Monocytes Percent Auto 9.8 % (3-14); Neutrophils Absolute Auto 10600 /uL (1500-7000); Neutrophils Percent Auto 74.2 % (50-75); Platelet Count 349 X10^3/uL (150-400); Red Blood Cell Count 3.83 X10^6/uL (4.5-5.9); Red Cell Distribution Width 16.1 % (11.6-14.8); White Blood Cell Count 14.3 X10^3/uL (4.5-11.0)
[2018-10-15 13:15] LABS: Blood Urea Nitrogen 21 mg/dL (9-20); Calcium 8.8 mg/dL (8.4-10.2); Carbon Dioxide 32 mmol/L (22-32); Chloride 100 mmol/L (98-107); Creatine Kinase 65 U/L (55-170); Estimated Glomerular Filt Rate > 60.0 mL/min (>60); Glucose 112 mg/dL (80-110); HEMOLYSIS < 15 (0-50); Lactate (Lactic Acid) 0.7 mmol/L (0.7-2.1); Potassium 4.3 mmol/L (3.4-5.1); Sodium 138 mmol/L (137-145)
[2018-10-15 13:17] LABS: D Dimer 2680 ng/mL (<230)
[2018-10-15 13:23] LABS: B Type Natriuretic Peptide < 100 (<100)
[2018-10-15 13:27] LABS: Troponin I < 0.012 ng/mL (0.01-0.034)
[2018-10-15 13:35] LABS: Procalcitonin < 0.05 ng/mL (<0.5)
--- NOTE | 2018-10-15 13:43 | DI.CT.S_ITS ---
PROCEDURE: CT ANGIO CHEST PE PROTOCOL INDICATIONS: fever, shortness of breath and elevated D-dimer TECHNIQUE: After the administration of intravenous contrast, 2 mm thick sections acquired from the pulmonary apices to the posterior costophrenic angles. 3-dimensional maximum intensity projection (MIP) coronal and sagittal reformats were then acquired through the thorax. For radiation dose reduction, the following was used: automated exposure control, adjustment of mA and/or kV according to patient size. COMPARISON: [facility], CT, CT ANGIO CHEST PE PROTOCOL, 09/30/2018, 17:20. FINDINGS: Image quality: Excellent. Pulmonary arteries: Pulmonary arteries are normal in size, and demonstrate no intraluminal filling defects to suggest central pulmonary embolism. Lungs and pleura: There is severe emphysema. No pleural effusions or pneumothorax. Central and peripheral airways are patent. Mediastinum: Heart size is normal, without pericardial effusion. No mediastinal or hilar adenopathy. Thoracic aorta is normal in caliber and enhancement. Esophagus is normal in caliber, without hiatal hernia. Bones and chest wall: Severe compression fracture of T7. No suspicious bony lesions. Ribs and thoracic spine appear intact throughout. Thyroid gland is normal. No axillary or supraclavicular adenopathy. Abdomen: Visualized upper abdominal solid organs appear normal in the early arterial phase of enhancement. IMPRESSION: 1. No evidence for pulmonary embolism. 2. Severe emphysema. 3. Severe compression fracture of T7. Dictated by: Amrik Nichols M.D. on 10/15/2018 at 15:38 Approved by: Amrik Nichols M.D. on 10/15/2018 at 15:46
[2018-10-15] MEDS: ALBUTEROL/IPRATROPIUM 3 ML AMPUL INH (13:52)
[2018-10-15] MEDS: SODIUM CHLORIDE 0.9% 1,000 ML 150 ML IV (13:55)
[2018-10-15 14:19] LABS: HCO3 ABG 31 mmol/L (22-26); Oxygen Saturation ABG 94 % (95-100); PCO2 ABG 46.4 mmHg (35-45); PO2 ABG 71 mmHg (80-100); TCO2 ABG 32 mmol/L (21-31); pH ABG 7.43 (7.35-7.45)
--- NOTE | 2018-10-15 15:01 | ED_ITS ---
HPI - URI/Sore Throat <JOAN Phan - Last Filed: 10/15/18 21:28> General Chief Complaint: Upper Respiratory Symptoms Stated Complaint: MRSA Time Seen by Provider: 10/15/18 12:19 Source: patient and EMS Mode of arrival: EMS Limitations: no limitations History of Present Illness HPI Narrative: 68-year-old male with significant history of COPD that is an everyday smoker brought over from the care facility due to having a fever of 105 is measured today. Patient is not complaining any chest pain or shortness of breath at this timeframe. He denies any discomfort or concerns at this timeframe. He presents with no fever at the time of check-in. He was recently treated for a pneumonia he did have a positive nasal swab for MRSA. He is currently on antibiotics he is taking Septra daily. He is tolerating p.o. intake. No nausea or vomiting. patient states that his shortness of breath is at baseline. He denies any productive cough. He denies any urinary symptoms. No abdominal pain. Related Data Home Medications Medication Instructions Recorded Confirmed Dulera 2 puff INHALATION BID 09/30/18 10/15/18 Spiriva with HandiHaler 1 cap INHALATION DAILY 09/30/18 10/15/18 acetaminophen 650 mg PO Q4H PRN 09/30/18 10/15/18 albuterol sulfate 2 puff INHALATION Q4H PRN 09/30/18 10/15/18 aspirin 81 mg PO DAILY 09/30/18 10/15/18 atorvastatin 20 mg PO BEDTIME 09/30/18 10/15/18 bisacodyl 10 mg SC PRN PRN 09/30/18 10/15/18 cholecalciferol (vitamin D3) 2,000 unit PO DAILY 09/30/18 10/15/18 [Vitamin D3] diltiazem HCl 180 mg PO BID 09/30/18 10/15/18 doxazosin 4 mg PO DAILY 09/30/18 10/15/18 fludrocortisone 0.1 mg PO DAILY 09/30/18 10/15/18 losartan 25 mg PO DAILY 09/30/18 10/15/18 magnesium hydroxide [Milk of 30 ml PO PRN PRN 09/30/18 10/15/18 Magnesia] morphine 15 mg PO Q8H 09/30/18 10/15/18 pantoprazole 40 mg PO DAILY 09/30/18 10/15/18 paroxetine HCl [Paxil] 20 mg PO DAILY 09/30/18 10/15/18 tamsulosin 0.4 mg PO QPM 09/30/18 10/15/18 lorazepam 0.5 mg PO Q4H PRN 10/15/18 10/15/18 multivitamin with minerals 1 tab PO DAILY 10/15/18 10/15/18 sulfamethoxazole-trimethoprim 1 tab PO Q12HR 10/15/18 10/15/18 Previous Rx's Medication Instructions Recorded ipratropium-albuterol 3 ml INHALATION QID #1 ml 10/02/18 Allergies Allergy/AdvReac Type Severity Reaction Status Date / Time No Known Drug Allergies Allergy Verified 09/30/18 10:40 Review of Systems <JOAN Phan - Last Filed: 10/15/18 21:28> Constitutional Reports fever(s) Eyes Denies change in vision, Denies eye discharge, Denies irritation and Denies loss of vision ENT Ears, Nose, Mouth, and Throat: Denies change in voice, Denies neck pain and Denies sore throat Cardiovascular Denies chest pain, Denies irregular heart rhythm, Denies lightheadedness, Denies palpitations, Reports dyspnea and Denies orthopnea Respiratory Reports cough and Reports dyspnea Gastrointestinal Gastrointestinal: Denies abdominal pain, Denies change in bowel habits, Denies diarrhea, Denies nausea and Denies vomiting Genitourinary Denies hematuria, Denies flank pain, Denies urinary incontinence and Denies urinary urgency Musculoskeletal Denies neck pain Integumentary/Breasts Denies pruritus, Denies erythema, Denies rash and Denies wounds Neurologic Denies confusion and Denies loss of vision Psychiatric Denies anxiety, Denies confusion, Denies depression, Denies homicidal ideation and Denies suicidal ideation Endocrine Denies palpitations Hematologic/Lymphatic Denies easy bruising PFSH <JOAN Phan - Last Filed: 10/15/18 21:28> Medical History Alcohol abuse (Acute) Alcoholic cirrhosis of liver without ascites (Acute) Anemia (Acute) Atrial fibrillation (Acute) BPH (benign prostatic hyperplasia) (Acute) COPD (chronic obstructive pulmonary disease) (Acute) Cardiomyopathy (Acute) Chronic pain (Acute) Constipation (Acute) Depression (Acute) Femur fracture, right (Acute) Hyperlipidemia (Acute) Hypertension (Acute) Osteoarthritis (Acute) Peripheral vascular disease (Acute) Family History Mother No known health problems Father No known health problems Social History alcohol intake: current Social History alcohol intake: current Exam <JOAN Phan - Last Filed: 10/15/18 21:28> Initial Vital Signs Initial Vital Signs: Vital Signs Temperature 98.7 F 10/15/18 12:09 Pulse Rate 89 10/15/18 12:09 Respiratory Rate 19 10/15/18 12:09 Blood Pressure 128/65 10/15/18 12:09 Pulse Oximetry 98 10/15/18 12:09 Const General: cooperative and well developed Nutritional Appearance: thin and underweight Orientation: alert, awake, oriented x3 and not confused [place] Mouth: oral mucosae normal and moist mucous membranes Eyes Conjunctivae: conjunctivae normal Sclera: sclerae normal Pupils: PERRL EOM: EOM intact bilaterally Resp Effort & Inspection: normal respiratory effort, able to speak in complete sentences, no respiratory distress and no use of accessory muscles Auscultation: no rales, rhonchi and wheezes Cardio Rate: regular rate Rhythm: regular rhythm Heart Sounds: no click, no gallops, no murmurs and no rubs Pulses: normal peripheral pulses Skin General: no rashes or lesions noted, No jaundice and No petechiae Neuro General: alert, awake, oriented x3 and no focal motor deficits Speech: speech normal <Robin Keane DO - Last Filed: 10/20/18 07:35> Initial Vital Signs Initial Vital Signs: Vital Signs Temperature 98.7 F 10/15/18 12:09 Pulse Rate 89 10/15/18 12:09 Respiratory Rate 19 10/15/18 12:09 Blood Pressure 128/65 10/15/18 12:09 Pulse Oximetry 98 10/15/18 12:09 Course <JOAN Phan - Last Filed: 10/15/18 21:28> Orders Ordered: Discontinued Medications Albuterol/Ipratropium (Duoneb) 3 ml INH NOW ONE Stop: 10/15/18 12:41 Last Admin: 10/15/18 13:52 Dose: 3 ml Sodium Chloride (Normal Saline 0.9%) 1,000 mls @ 150 mls/hr IV CONT SHANON Last Infusion: 10/15/18 17:35 Dose: 0 mls/hr Infusion: 10/15/18 16:30 Dose: 500 mls/hr Admin: 10/15/18 13:55 Dose: 150 mls/hr Vital Signs - 8 hr 10/15/18 14:00 10/15/18 14:57 10/15/18 15:02 Temperature Pulse Rate 71 86 Respiratory Rate Blood Pressure Blood Pressure [Left Arm] 113/60 Pulse Oximetry 92 92 10/15/18 15:05 10/15/18 17:21 10/15/18 18:28 Temperature 98.7 F 98.3 F Pulse Rate 86 91 H Respiratory Rate 19 19 Blood Pressure 128/65 Blood Pressure [Left Arm] 119/82 Pulse Oximetry 92 94 <Robin Keane DO - Last Filed: 10/20/18 07:35> Orders Ordered: Discontinued Medications Albuterol/Ipratropium (Duoneb) 3 ml INH NOW ONE Stop: 10/15/18 12:41 Last Admin: 10/15/18 13:52 Dose: 3 ml Sodium Chloride (Normal Saline 0.9%) 1,000 mls @ 150 mls/hr IV CONT SHANON Last Infusion: 10/15/18 17:35 Dose: 0 mls/hr Infusion: 10/15/18 16:30 Dose: 500 mls/hr Admin: 10/15/18 13:55 Dose: 150 mls/hr Vital Signs - 8 hr 10/15/18 14:00 10/15/18 14:57 10/15/18 15:02 Temperature Pulse Rate 71 86 Respiratory Rate Blood Pressure Blood Pressure [Left Arm] 113/60 Pulse Oximetry 92 92 10/15/18 15:05 10/15/18 17:21 10/15/18 18:28 Temperature 98.7 F 98.3 F Pulse Rate 86 91 H Respiratory Rate 19 19 Blood Pressure 128/65 Blood Pressure [Left Arm] 119/82 Pulse Oximetry 92 94 MDM - URI/Sore Throat <JOAN Phan - Last Filed: 02/21/19 21:28> Lab Data Result diagrams: 10/15/18 12:45 10/15/18 12:45 Lab Results 10/15/18 10/15/18 10/15/18 Range/Units 12:45 12:45 12:45 WBC 14.3 H (4.5-11.0) X10^3/uL RBC 3.83 L (4.5-5.9) X10^6/uL Hgb 12.0 L (13.5-17.5) g/dL Hct 36.5 L (41-53) % MCV 95.4 (80-100) fL MCH 31.3 (26-34) PG MCHC 32.8 (30-36) % RDW 16.1 H (11.6-14.8) % Plt Count 349 (150-400) X10^3/uL Neut % (Auto) 74.2 (50-75) % Lymph % (Auto) 14.6 L (25-40) % Gilliam % (Auto) 9.8 (3-14) % Eos % (Auto) 0.6 L (2-4) % Baso % (Auto) 0.8 (0-2) % Neut # (Auto) 97464 H (1154-4832) /uL Lymph # (Auto) 2100 (5710-6872) /uL Gilliam # (Auto) 1400 H (0-900) /uL Eos # (Auto) 100 (0-450) /uL Baso # (Auto) 100 (0-100) /uL D-Dimer 2680 H (<230) ng/mL ABG pH (7.35-7.45) ABG pCO2 (35-45) mmHg ABG pO2 (80-100) mmHg ABG HCO3 (22-26) mmol/L ABG Total CO2 (21-31) mmol/L ABG O2 Saturation (95-100) % ABG Base Excess (-2-2) mmol/L FiO2 Sodium 138 (137-145) mmol/L Potassium 4.3 (3.4-5.1) mmol/L Chloride 100 (98-107) mmol/L Carbon Dioxide 32 (22-32) mmol/L BUN 21 H (9-20) mg/dL Creatinine 0.70 (0.66-1.25) mg/dL Estimated GFR > 60.0 (>60) mL/min BUN/Creatinine Ratio 30.0 H (6-22) Glucose 112 H (80-110) mg/dL Lactate (0.7-2.1) mmol/L Calcium 8.8 (8.4-10.2) mg/dL Magnesium 2.0 (1.6-2.3) mg/dL Total Bilirubin (0.2-1.3) mg/dL Conjugated Bilirubin (0.0-0.3) md/dL Unconjugated Bilirubin (0.0-1.1) mg/dL AST (17-59) IU/L ALT (21-72) IU/L Alkaline Phosphatase (38-126) U/L Total Creatine Kinase 65 (55-170) U/L CK-MB (CK-2) TNP CK-MB (CK-2) Rel Index TNP Troponin I < 0.012 (0.01-0.034) ng/mL B-Natriuretic Peptide < 100 (<100) Total Protein (6.3-8.2) g/dL Albumin (3.5-5.0) g/dL Globulin (1.7-4.1) g/dL Albumin/Globulin Ratio (1.0-2.8) Procalcitonin (<0.5) ng/mL Urine RBC (0-5/HPF) Urine WBC (0-5/HPF) Ur Squamous Epith Cells Urine Bacteria (None) Ur Culture Indicated? Influenza A & B (PCR) (Negative) 10/15/18 10/15/18 10/15/18 Range/Units 12:45 12:45 12:58 WBC (4.5-11.0) X10^3/uL RBC (4.5-5.9) X10^6/uL Hgb (13.5-17.5) g/dL Hct (41-53) % MCV (80-100) fL MCH (26-34) PG MCHC (30-36) % RDW (11.6-14.8) % Plt Count (150-400) X10^3/uL Neut % (Auto) (50-75) % Lymph % (Auto) (25-40) % Gilliam % (Auto) (3-14) % Eos % (Auto) (2-4) % Baso % (Auto) (0-2) % Neut # (Auto) (8019-3999) /uL Lymph # (Auto) (9270-1442) /uL Gilliam # (Auto) (0-900) /uL Eos # (Auto) (0-450) /uL Baso # (Auto) (0-100) /uL D-Dimer (<230) ng/mL ABG pH (7.35-7.45) ABG pCO2 (35-45) mmHg ABG pO2 (80-100) mmHg ABG HCO3 (22-26) mmol/L ABG Total CO2 (21-31) mmol/L ABG O2 Saturation (95-100) % ABG Base Excess (-2-2) mmol/L FiO2 Sodium (137-145) mmol/L Potassium (3.4-5.1) mmol/L Chloride (98-107) mmol/L Carbon Dioxide (22-32) mmol/L BUN (9-20) mg/dL Creatinine (0.66-1.25) mg/dL Estimated GFR (>60) mL/min BUN/Creatinine Ratio (6-22) Glucose (80-110) mg/dL Lactate 0.7 (0.7-2.1) mmol/L Calcium (8.4-10.2) mg/dL Magnesium (1.6-2.3) mg/dL Total Bilirubin 0.6 (0.2-1.3) mg/dL Conjugated Bilirubin 0.0 (0.0-0.3) md/dL Unconjugated Bilirubin 0.3 (0.0-1.1) mg/dL AST 49 (17-59) IU/L ALT 42 (21-72) IU/L Alkaline Phosphatase 71 (38-126) U/L Total Creatine Kinase (55-170) U/L CK-MB (CK-2) CK-MB (CK-2) Rel Index Troponin I (0.01-0.034) ng/mL B-Natriuretic Peptide (<100) Total Protein 6.4 (6.3-8.2) g/dL Albumin 3.7 (3.5-5.0) g/dL Globulin 2.7 (1.7-4.1) g/dL Albumin/Globulin Ratio 1.4 (1.0-2.8) Procalcitonin < 0.05 (<0.5) ng/mL Urine RBC (0-5/HPF) Urine WBC (0-5/HPF) Ur Squamous Epith Cells Urine Bacteria (None) Ur Culture Indicated? Influenza A & B (PCR) (Negative) 10/15/18 10/15/18 10/15/18 Range/Units 13:31 14:42 16:28 WBC (4.5-11.0) X10^3/uL RBC (4.5-5.9) X10^6/uL Hgb (13.5-17.5) g/dL Hct (41-53) % MCV (80-100) fL MCH (26-34) PG MCHC (30-36) % RDW (11.6-14.8) % Plt Count (150-400) X10^3/uL Neut % (Auto) (50-75) % Lymph % (Auto) (25-40) % Gilliam % (Auto) (3-14) % Eos % (Auto) (2-4) % Baso % (Auto) (0-2) % Neut # (Auto) (1676-7328) /uL Lymph # (Auto) (4877-9026) /uL Gilliam # (Auto) (0-900) /uL Eos # (Auto) (0-450) /uL Baso # (Auto) (0-100) /uL D-Dimer (<230) ng/mL ABG pH 7.43 (7.35-7.45) ABG pCO2 46.4 H (35-45) mmHg ABG pO2 71 L (80-100) mmHg ABG HCO3 31 H (22-26) mmol/L ABG Total CO2 32 H (21-31) mmol/L ABG O2 Saturation 94 L (95-100) % ABG Base Excess 7.0 H (-2-2) mmol/L FiO2 0.32 Sodium (137-145) mmol/L Potassium (3.4-5.1) mmol/L Chloride (98-107) mmol/L Carbon Dioxide (22-32) mmol/L BUN (9-20) mg/dL Creatinine (0.66-1.25) mg/dL Estimated GFR (>60) mL/min BUN/Creatinine Ratio (6-22) Glucose (80-110) mg/dL Lactate (0.7-2.1) mmol/L Calcium (8.4-10.2) mg/dL Magnesium (1.6-2.3) mg/dL Total Bilirubin (0.2-1.3) mg/dL Conjugated Bilirubin (0.0-0.3) md/dL Unconjugated Bilirubin (0.0-1.1) mg/dL AST (17-59) IU/L ALT (21-72) IU/L Alkaline Phosphatase (38-126) U/L Total Creatine Kinase (55-170) U/L CK-MB (CK-2) CK-MB (CK-2) Rel Index Troponin I (0.01-0.034) ng/mL B-Natriuretic Peptide (<100) Total Protein (6.3-8.2) g/dL Albumin (3.5-5.0) g/dL Globulin (1.7-4.1) g/dL Albumin/Globulin Ratio (1.0-2.8) Procalcitonin (<0.5) ng/mL Urine RBC 0-1/hpf (0-5/HPF) Urine WBC 1-5/hpf (0-5/HPF) Ur Squamous Epith Cells 0-1 /hpf Urine Bacteria None seen (None) Ur Culture Indicated? Specimen cultured Influenza A & B (PCR) Negative (Negative) Urine Dip Bedside Urine Glucose 100 mg/dl Bedside Urine Bilirubin + 1 Bedside Urine Ketone +/- 5 Urine Specific Williams 1.015 Bedside Urine Occult Blood - Negative Bedside Urine pH 7.0 Bedside Urine Protein +/- 15 Bedside Urine Urobilinogen 1+ 2mg Bedside Urine Nitrite - Negative Bedside Urine Leukocytes +/- [address] scan - chest: Radiologist's impression: [address] [address] [address] Scan Report Signed Patient: Teetee Clayton#: [id number] : 2Acct:[id number] Age/Sex: 68 / MDate of Service: 10/15/18 Loc: ED Accession Number: [id number] Procedure: CT angio chest PE protocol Ordering Provider: Mikey Rodriguez PROCEDURE: CT ANGIO CHEST PE PROTOCOL INDICATIONS: fever, shortness of breath and elevated D-dimer TECHNIQUE: After the administration of intravenous contrast, 2 mm thick sections acquired from the pulmonary apices to the posterior costophrenic angles. 3-dimensional maximum intensity projection (MIP) coronal and sagittal reformats were then acquired through the thorax. For radiation dose reduction, the following was used: automated exposure control, adjustment of mA and/or kV according to patient size. COMPARISON: [facility], CT, CT ANGIO CHEST PE PROTOCOL, 09/30/2018, 17:20. FINDINGS: Image quality: Excellent. Pulmonary arteries: Pulmonary arteries are normal in size, and demonstrate no intraluminal filling defects to suggest central pulmonary embolism. Lungs and pleura: There is severe emphysema. No pleural effusions or pneumothorax. Central and peripheral airways are patent. Mediastinum: Heart size is normal, without pericardial effusion. No mediastinal or hilar adenopathy. Thoracic aorta is normal in caliber and enhancement. Esophagus is normal in caliber, without hiatal hernia. Bones and chest wall: Severe compression fracture of T7. No suspicious bony lesions. Ribs and thoracic spine appear intact throughout. Thyroid gland is normal. No axillary or supraclavicular adenopathy. Abdomen: Visualized upper abdominal solid organs appear normal in the early arterial phase of enhancement. IMPRESSION: 1. No evidence for pulmonary embolism. 2. Severe emphysema. 3. Severe compression fracture of T7. Dictated by: Amrik Nichols M.D. on 10/15/2018 at 15:38 Approved by: Amrik Nichols M.D. on 10/15/2018 at 15:46 Chest x-ray: Radiologist's impression: [address] [address] XRay Report Signed Patient: Giovanni ClaytonMR#: [id number] : 2Acct:[id number] Age/Sex: 68 / MDate of Service: 10/15/18 Loc: ED Accession Number: [id number] Procedure: XR chest 1V Ordering Provider: Mikey Rodriguez PROCEDURE: XR CHEST 1V INDICATIONS: fever shortness of breath TECHNIQUE: One view of the chest was acquired. COMPARISON: [facility], CR, XR CHEST 1V, 09/30/2018, 10:57. FINDINGS: Surgical changes and devices: None. Lungs and pleura: Lungs are abnormal with severe pulmonary hyperexpansion and chronic interstitial prominence consistent with long-standing smoking history. No pl eural effusions or pneumothorax. Mediastinum: Mediastinal contours appear normal. Heart size is normal. Bones and chest wall: No suspicious bony lesions. Overlying soft tissues appear unremarkable. IMPRESSION: Severe COPD, no definite acute disease is found. Chronic interstitial prominence. Dictated by: Bishnu Franklin M.D. on 10/15/2018 at 13:01 Approved by: Bishnu Franklin M.D. on 10/15/2018 at 13:02 [facility] Narrative Medical decision making narrative: Chest x-ray was obtained and shows severe COPD no acute findings. CBC shows elevated white count of 14.5 which is lowered significantly from his white count from the 14th. BNP was obtained and was unremarkable. Ammonia was resulted today from prior lab value that resulted at 45. His liver functions were unremarkable. Urinalysis did not appear to show a urinary tract infection. D-dimer was obtained and was elevated at [address] was obtained was negative for a PE. patient is alert oriented x3. discussed case with Dr. Rouse who will follow the patient in the next few days. He is released back to a care facility for any worsening symptoms return to the emergency room. Source of fever is not found today. Patient did not have a fever while in the emergency room today. <Robin Keane, DO - Last Filed: 10/20/18 07:35> Lab Data Lab Results 10/15/18 10/15/18 10/15/18 Range/Units 12:45 12:45 12:45 WBC 14.3 H (4.5-11.0) X10^3/uL RBC 3.83 L (4.5-5.9) X10^6/uL Hgb 12.0 L (13.5-17.5) g/dL Hct 36.5 L (41-53) % MCV 95.4 (80-100) fL MCH 31.3 (26-34) PG MCHC 32.8 (30-36) % RDW 16.1 H (11.6-14.8) % Plt Count 349 (150-400) X10^3/uL Neut % (Auto) 74.2 (50-75) % Lymph % (Auto) 14.6 L (25-40) % Gilliam % (Auto) 9.8 (3-14) % Eos % (Auto) 0.6 L (2-4) % Baso % (Auto) 0.8 (0-2) % Neut # (Auto) 02262 H (4037-0368) /uL Lymph # (Auto) 2100 (5919-6837) /uL Gilliam # (Auto) 1400 H (0-900) /uL Eos # (Auto) 100 (0-450) /uL Baso # (Auto) 100 (0-100) /uL D-Dimer 2680 H (<230) ng/mL ABG pH (7.35-7.45) ABG pCO2 (35-45) mmHg ABG pO2 (80-100) mmHg ABG HCO3 (22-26) mmol/L ABG Total CO2 (21-31) mmol/L ABG O2 Saturation (95-100) % ABG Base Excess (-2-2) mmol/L FiO2 Sodium 138 (137-145) mmol/L Potassium 4.3 (3.4-5.1) mmol/L Chloride 100 (98-107) mmol/L Carbon Dioxide 32 (22-32) mmol/L BUN 21 H (9-20) mg/dL Creatinine 0.70 (0.66-1.25) mg/dL Estimated GFR > 60.0 (>60) mL/min BUN/Creatinine Ratio 30.0 H (6-22) Glucose 112 H (80-110) mg/dL Lactate (0.7-2.1) mmol/L Calcium 8.8 (8.4-10.2) mg/dL Magnesium 2.0 (1.6-2.3) mg/dL Total Bilirubin (0.2-1.3) mg/dL Conjugated Bilirubin (0.0-0.3) md/dL Unconjugated Bilirubin (0.0-1.1) mg/dL AST (17-59) IU/L ALT (21-72) IU/L Alkaline Phosphatase (38-126) U/L Total Creatine Kinase 65 (55-170) U/L CK-MB (CK-2) TNP CK-MB (CK-2) Rel Index TNP Troponin I < 0.012 (0.01-0.034) ng/mL B-Natriuretic Peptide < 100 (<100) Total Protein (6.3-8.2) g/dL Albumin (3.5-5.0) g/dL Globulin (1.7-4.1) g/dL Albumin/Globulin Ratio (1.0-2.8) Procalcitonin (<0.5) ng/mL Urine RBC (0-5/HPF) Urine WBC (0-5/HPF) Ur Squamous Epith Cells Urine Bacteria (None) Ur Culture Indicated? Influenza A & B (PCR) (Negative) 10/15/18 10/15/18 10/15/18 Range/Units 12:45 12:45 12:58 WBC (4.5-11.0) X10^3/uL RBC (4.5-5.9) X10^6/uL Hgb (13.5-17.5) g/dL Hct (41-53) % MCV (80-100) fL MCH (26-34) PG MCHC (30-36) % RDW (11.6-14.8) % Plt Count (150-400) X10^3/uL Neut % (Auto) (50-75) % Lymph % (Auto) (25-40) % Gilliam % (Auto) (3-14) % Eos % (Auto) (2-4) % Baso % (Auto) (0-2) % Neut # (Auto) (9834-2123) /uL Lymph # (Auto) (8444-8758) /uL Gilliam # (Auto) (0-900) /uL Eos # (Auto) (0-450) /uL Baso # (Auto) (0-100) /uL D-Dimer (<230) ng/mL ABG pH (7.35-7.45) ABG pCO2 (35-45) mmHg ABG pO2 (80-100) mmHg ABG HCO3 (22-26) mmol/L ABG Total CO2 (21-31) mmol/L ABG O2 Saturation (95-100) % ABG Base Excess (-2-2) mmol/L FiO2 Sodium (137-145) mmol/L Potassium (3.4-5.1) mmol/L Chloride (98-107) mmol/L Carbon Dioxide (22-32) mmol/L BUN (9-20) mg/dL Creatinine (0.66-1.25) mg/dL Estimated GFR (>60) mL/min BUN/Creatinine Ratio (6-22) Glucose (80-110) mg/dL Lactate 0.7 (0.7-2.1) mmol/L Calcium (8.4-10.2) mg/dL Magnesium (1.6-2.3) mg/dL Total Bilirubin 0.6 (0.2-1.3) mg/dL Conjugated Bilirubin 0.0 (0.0-0.3) md/dL Unconjugated Bilirubin 0.3 (0.0-1.1) mg/dL AST 49 (17-59) IU/L ALT 42 (21-72) IU/L Alkaline Phosphatase 71 (38-126) U/L Total Creatine Kinase (55-170) U/L CK-MB (CK-2) CK-MB (CK-2) Rel Index Troponin I (0.01-0.034) ng/mL B-Natriuretic Peptide (<100) Total Protein 6.4 (6.3-8.2) g/dL Albumin 3.7 (3.5-5.0) g/dL Globulin 2.7 (1.7-4.1) g/dL Albumin/Globulin Ratio 1.4 (1.0-2.8) Procalcitonin < 0.05 (<0.5) ng/mL Urine RBC (0-5/HPF) Urine WBC (0-5/HPF) Ur Squamous Epith Cells Urine Bacteria (None) Ur Culture Indicated? Influenza A & B (PCR) (Negative) 10/15/18 10/15/18 10/15/18 Range/Units 13:31 14:42 16:28 WBC (4.5-11.0) X10^3/uL RBC (4.5-5.9) X10^6/uL Hgb (13.5-17.5) g/dL Hct (41-53) % MCV (80-100) fL MCH (26-34) PG MCHC (30-36) % RDW (11.6-14.8) % Plt Count (150-400) X10^3/uL Neut % (Auto) (50-75) % Lymph % (Auto) (25-40) % Gilliam % (Auto) (3-14) % Eos % (Auto) (2-4) % Baso % (Auto) (0-2) % Neut # (Auto) (0555-0012) /uL Lymph # (Auto) (5395-1632) /uL Gilliam # (Auto) (0-900) /uL Eos # (Auto) (0-450) /uL Baso # (Auto) (0-100) /uL D-Dimer (<230) ng/mL ABG pH 7.43 (7.35-7.45) ABG pCO2 46.4 H (35-45) mmHg ABG pO2 71 L (80-100) mmHg ABG HCO3 31 H (22-26) mmol/L ABG Total CO2 32 H (21-31) mmol/L ABG O2 Saturation 94 L (95-100) % ABG Base Excess 7.0 H (-2-2) mmol/L FiO2 0.32 Sodium (137-145) mmol/L Potassium (3.4-5.1) mmol/L Chloride (98-107) mmol/L Carbon Dioxide (22-32) mmol/L BUN (9-20) mg/dL Creatinine (0.66-1.25) mg/dL Estimated GFR (>60) mL/min BUN/Creatinine Ratio (6-22) Glucose (80-110) mg/dL Lactate (0.7-2.1) mmol/L Calcium (8.4-10.2) mg/dL Magnesium (1.6-2.3) mg/dL Total Bilirubin (0.2-1.3) mg/dL Conjugated Bilirubin (0.0-0.3) md/dL Unconjugated Bilirubin (0.0-1.1) mg/dL AST (17-59) IU/L ALT (21-72) IU/L Alkaline Phosphatase (38-126) U/L Total Creatine Kinase (55-170) U/L CK-MB (CK-2) CK-MB (CK-2) Rel Index Troponin I (0.01-0.034) ng/mL B-Natriuretic Peptide (<100) Total Protein (6.3-8.2) g/dL Albumin (3.5-5.0) g/dL Globulin (1.7-4.1) g/dL Albumin/Globulin Ratio (1.0-2.8) Procalcitonin (<0.5) ng/mL Urine RBC 0-1/hpf (0-5/HPF) Urine WBC 1-5/hpf (0-5/HPF) Ur Squamous Epith Cells 0-1 /hpf Urine Bacteria None seen (None) Ur Culture Indicated? Specimen cultured Influenza A & B (PCR) Negative (Negative) Urine Dip Bedside Urine Glucose 100 mg/dl Bedside Urine Bilirubin + 1 Bedside Urine Ketone +/- 5 Urine Specific Williams 1.015 Bedside Urine Occult Blood - Negative Bedside Urine pH 7.0 Bedside Urine Protein +/- 15 Bedside Urine Urobilinogen 1+ 2mg Bedside Urine Nitrite - Negative Bedside Urine Leukocytes +/- 15 Esterase Discharge Plan Departure Patient Disposition: Home Clinical Impression: Fever Qualifiers: Fever type: unspecified Qualified Code(s): R50.9 - Fever, unspecified Discharge Date/Time: 10/15/18 18:30 Interventions: ED Discharge Assessment Last Done: 10/15/18 18:29 Instructions: DI for Fever (Symptom) -- Adult Activity Restrictions/Additional Instructions: imaging and laboratory results today were unremarkable. Source of fever is not found. Current medications as prescribed follow up with primary care provider in the next day or 2 for re-evaluation. For any worsening symptoms return to the emergency room. Prescriptions: No Action atorvastatin 20 mg Tablet 20 mg PO BEDTIME RF: 0 aspirin 81 mg Tablet,Delayed Release (Dr/Ec) 81 mg PO DAILY RF: 0 tamsulosin 0.4 mg Capsule 0.4 mg PO QPM RF: 0 paroxetine HCl [Paxil] 20 mg Tablet 20 mg PO DAILY RF: 0 pantoprazole 40 mg Tablet,Delayed Release (Dr/Ec) 40 mg PO DAILY RF: 0 losartan 25 mg Tablet 25 mg PO DAILY RF: 0 doxazosin 4 mg Tablet 4 mg PO DAILY RF: 0 fludrocortisone 0.1 mg Tablet 0.1 mg PO DAILY RF: 0 Spiriva with HandiHaler 18 mcg Capsule, W/Inhalation Device 1 cap INHALATION DAILY RF: 0 cholecalciferol (vitamin D3) [Vitamin D3] 2,000 unit Tablet 2,000 unit PO DAILY RF: 0 acetaminophen 325 mg Tablet 650 mg PO Q4H PRN (Reason: Pain, Moderate) RF: 0 diltiazem HCl 180 mg Capsule,Extended Release 24hr 180 mg PO BID RF: 0 magnesium hydroxide [Milk of Magnesia] 400 mg/5 mL Suspension 30 ml PO PRN PRN (Reason: Constipation) RF: 0 bisacodyl 10 mg Suppository 10 mg SC PRN PRN (Reason: Constipation) RF: 0 morphine 15 mg Tablet Extended Release 15 mg PO Q8H RF: 0 albuterol sulfate 90 mcg/actuation Hfa Aerosol Inhaler 2 puff INHALATION Q4H PRN (Reason: Wheezing) RF: 0 Dulera 100-5 mcg/actuation Hfa Aerosol Inhaler 2 puff INHALATION BID RF: 0 ipratropium-albuterol 0.5 mg-3 mg(2.5 mg base)/3 mL Solution For Nebulization 3 ml INHALATION QID Qty: 1 RF: 0 multivitamin with minerals Tablet 1 tab PO DAILY RF: 0 sulfamethoxazole-trimethoprim 800-160 mg tablet 1 tab PO Q12HR RF: 0 lorazepam 0.5 mg tablet 0.5 mg PO Q4H PRN (Reason: Anxiety) RF: 0 Referrals: Ruby Max MD [Physician] - <Robin Keane DO - Last Filed: 10/20/18 07:35> Cosign ED Attending Debra Attestation: I was available for consultation during this patient's emergency department encounter
[2018-10-15 15:03] LABS: Influenza A and B by PCR Rapid Negative (Negative)
--- NOTE | 2018-10-15 15:16 | PC.NURSE ---
attempted to get urine from patient at 1500 patient unable to urinate at this time. Patient aware of need for UA
[2018-10-15 16:07] LABS: Alanine Aminotransferase 42 IU/L (21-72); Albumin 3.7 g/dL (3.5-5.0); Albumin Globulin Ratio 1.4 (1.0-2.8); Alkaline Phosphatase 71 U/L (38-126); Aspartate Aminotransferase 49 IU/L (17-59); Bilirubin Total 0.6 mg/dL (0.2-1.3); Bilirubin Unconjugated 0.3 mg/dL (0.0-1.1); Globulin 2.7 g/dL (1.7-4.1); HEMOLYSIS < 15 (0-50); Total Protein 6.4 g/dL (6.3-8.2)
[2018-10-15 16:45] LABS: Bacteria Urine None Seen
[2018-10-15 16:56] LABS: RBC Urine 0-1/HPF (0-5/HPF); Squamous Epithelial Cell Urine 0-1 /HPF; WBC Urine 1-5/HPF (0-5/HPF)
[2018-10-15 16:57] LABS: Culture Indicated Urine Specimen Cultured
--- NOTE | 2018-10-15 17:34 | PC.NURSE ---
report given to [facility] Aramis DOMINGUEZ.
[2018-10-16 23:29] LABS: Fractionated Inspired Oxygen 0.32
== END 2018-10-15 18:30 | disposition home or self-care (01) ==
PROVIDERS: Emergency Provider Nurse Practitioner Family
DX: R50.9 Fever, unspecified (principal)
CPT/HCPCS: 36415; 36591; 36600; 71045; 71275; 80048; 80076; 81003; 81015; 82140; 82550; 82805; 83605; 83735; 83880; 84145; 84484; 85025; 85379; 87040; 87086; 87400; 93005; 96360; 96361; 99284; 99285; Q9967

== ENCOUNTER → 2018-10-15 14:30 | Outpatient (REF) | payer MEDICARE, MEDICAID, SELFPAY ==
[2018-09-30 13:14] VITALS: BMI 14.3
[2018-09-30 15:16] VITALS: PULSE 93; RESP 20; O2SAT 91
[2018-10-15 14:49] LABS: Add Manual Diff / Slide Review NO; Basophils Absolute Auto 100 /uL (0-100); Basophils Percent Auto 0.5 % (0-2); Eosinophils Absolute Auto 0 /uL (0-450); Eosinophils Percent Auto 0.2 % (2-4); Hematocrit 35.9 % (41-53); Hemoglobin 11.8 g/dL (13.5-17.5); Lymphocytes Absolute Auto 3000 /uL (1100-4500); Lymphocytes Percent Auto 20.9 % (25-40); Mean Corpuscular HGB Conc 32.7 % (30-36); Mean Corpuscular Hemoglobin 31.5 PG (26-34); Mean Corpuscular Volume 96.2 fL (80-100); Monocytes Absolute Auto 1200 /uL (0-900); Monocytes Percent Auto 8.2 % (3-14); Neutrophils Absolute Auto 10200 /uL (1500-7000); Neutrophils Percent Auto 70.2 % (50-75); Platelet Count 339 X10^3/uL (150-400); Red Blood Cell Count 3.73 X10^6/uL (4.5-5.9); Red Cell Distribution Width 15.7 % (11.6-14.8); White Blood Cell Count 14.5 X10^3/uL (4.5-11.0)
[2018-10-15 14:55] LABS: Blood Urea Nitrogen 21 mg/dL (9-20); Calcium 8.9 mg/dL (8.4-10.2); Carbon Dioxide 33 mmol/L (22-32); Chloride 102 mmol/L (98-107); Estimated Glomerular Filt Rate > 60.0 mL/min (>60); Glucose 105 mg/dL (80-110); HEMOLYSIS 43 (0-50); Sodium 140 mmol/L (137-145)
[2018-10-15 14:57] LABS: Potassium 4.7 mmol/L (3.4-5.1)
== END ==
LOC: LAB 14:30
PROVIDERS: Visit Provider Registered Nurse
CPT/HCPCS: 80048; 82140; 85025

== ENCOUNTER → 2018-10-31 16:21 | Outpatient (REF) | payer OTHER, MEDICAID, SELFPAY ==
[2018-09-30 13:14] VITALS: BMI 14.3
[2018-09-30 15:16] VITALS: PULSE 93; RESP 20; O2SAT 91
[2018-10-31 18:21] LABS: Adenovirus F 40/41 Not Detected (Not Detect); Astrovirus Not Detected (Not Detect); Campylobacter Not Detected (Not Detect); Clostridium difficile toxin AB Not Detected (Not Detect); Cryptosporidium Not Detected (Not Detect); Cyclospora cayetanensis Not Detected (Not Detect); Entamoeba histolytica Not Detected (Not Detect); Enteroaggregative E.coli Not Detected (Not Detect); Enteropathogenic E.coli Not Detected (Not Detect); Enterotoxigenic E.coli It/st Not Detected (Not Detect); Giardia lamblia Not Detected (Not Detect); Norovirus GI/GII Not Detected (Not Detect); Plesiomonsa shigelloides Not Detected (Not Detect); Rotavirus A Not Detected (Not Detect); Salmonella Not Detected (Not Detect); Sapovirus Not Detected (Not Detect); Shiga-like toxin-prod E.coli Not Detected (Not Detect); Shigella/Enteroinvasive E.coli Not Detected (Not Detect); Vibrio Not Detected (Not Detect); Vibrio cholerae Not Detected (Not Detect); Yersinia enterocolitica Not Detected (Not Detect)
== END ==
LOC: LAB 16:21
PROVIDERS: Visit Provider Internal Medicine
DX: R19.7 Diarrhea, unspecified (principal)
CPT/HCPCS: 87507

== ENCOUNTER → 2018-11-05 15:55 | Outpatient (REF) | payer OTHER, MEDICAID, SELFPAY ==
[2018-09-30 13:14] VITALS: BMI 14.3
[2018-09-30 15:16] VITALS: PULSE 93; RESP 20; O2SAT 91
[2018-11-05 16:21] LABS: Add Manual Diff / Slide Review NO; Basophils Absolute Auto 200 /uL (0-100); Basophils Percent Auto 0.9 % (0-2); Eosinophils Absolute Auto 0 /uL (0-450); Eosinophils Percent Auto 0.3 % (2-4); Hematocrit 36.3 % (41-53); Hemoglobin 12.1 g/dL (13.5-17.5); Lymphocytes Absolute Auto 2900 /uL (1100-4500); Lymphocytes Percent Auto 17.1 % (25-40); Mean Corpuscular HGB Conc 33.4 % (30-36); Mean Corpuscular Hemoglobin 31.8 PG (26-34); Mean Corpuscular Volume 95.4 fL (80-100); Monocytes Absolute Auto 1800 /uL (0-900); Monocytes Percent Auto 10.5 % (3-14); Neutrophils Absolute Auto 11900 /uL (1500-7000); Neutrophils Percent Auto 71.2 % (50-75); Platelet Count 277 X10^3/uL (150-400); Red Blood Cell Count 3.81 X10^6/uL (4.5-5.9); Red Cell Distribution Width 16.6 % (11.6-14.8); White Blood Cell Count 16.8 X10^3/uL (4.5-11.0)
[2018-11-05 16:31] LABS: Alanine Aminotransferase 31 IU/L (21-72); Albumin 3.5 g/dL (3.5-5.0); Albumin Globulin Ratio 1.3 (1.0-2.8); Alkaline Phosphatase 91 U/L (38-126); Aspartate Aminotransferase 24 IU/L (17-59); Bilirubin Total 0.5 mg/dL (0.2-1.3); Blood Urea Nitrogen 12 mg/dL (9-20); Calcium 8.7 mg/dL (8.4-10.2); Carbon Dioxide 29 mmol/L (22-32); Chloride 98 mmol/L (98-107); Estimated Glomerular Filt Rate > 60.0 mL/min (>60); Globulin 2.7 g/dL (1.7-4.1); Glucose 113 mg/dL (80-110); Potassium 3.3 mmol/L (3.4-5.1); Sodium 137 mmol/L (137-145); Total Protein 6.2 g/dL (6.3-8.2)
[2018-11-05 16:35] LABS: HEMOLYSIS 52 (0-50)
== END ==
LOC: LAB 15:55
PROVIDERS: Visit Provider Registered Nurse
DX: R19.7 Diarrhea, unspecified (principal)
CPT/HCPCS: 80053; 85025

== ENCOUNTER → 2018-11-10 07:28 | Outpatient (REF) | payer OTHER, MEDICAID, SELFPAY ==
[2018-09-30 13:14] VITALS: BMI 14.3
[2018-09-30 15:16] VITALS: PULSE 93; RESP 20; O2SAT 91
[2018-11-10 08:34] LABS: Add Manual Diff / Slide Review NO; Basophils Absolute Auto 100 /uL (0-100); Basophils Percent Auto 0.6 % (0-2); Eosinophils Absolute Auto 100 /uL (0-450); Eosinophils Percent Auto 0.4 % (2-4); Hematocrit 34.1 % (41-53); Hemoglobin 11.3 g/dL (13.5-17.5); Lymphocytes Absolute Auto 4200 /uL (1100-4500); Lymphocytes Percent Auto 27.8 % (25-40); Mean Corpuscular HGB Conc 33.1 % (30-36); Mean Corpuscular Hemoglobin 31.3 PG (26-34); Mean Corpuscular Volume 94.7 fL (80-100); Monocytes Absolute Auto 1700 /uL (0-900); Neutrophils Absolute Auto 9100 /uL (1500-7000); Neutrophils Percent Auto 60.2 % (50-75); Platelet Count 326 X10^3/uL (150-400); White Blood Cell Count 15.1 X10^3/uL (4.5-11.0)
== END ==
LOC: LAB 07:28
PROVIDERS: Visit Provider Nurse Practitioner Family
DX: D72.829 Elevated white blood cell count, unspecified (principal)
CPT/HCPCS: 36415; 82140; 85025

== ENCOUNTER → 2018-11-26 18:35 | Outpatient (REF) | payer OTHER, MEDICAID, SELFPAY ==
[2018-09-30 13:14] VITALS: BMI 14.3
[2018-09-30 15:16] VITALS: PULSE 93; RESP 20; O2SAT 91
[2018-11-26 18:53] LABS: Add Manual Diff / Slide Review NO; Basophils Absolute Auto 100 /uL (0-100); Basophils Percent Auto 0.4 % (0-2); Eosinophils Absolute Auto 100 /uL (0-450); Eosinophils Percent Auto 0.3 % (2-4); Hematocrit 37.9 % (41-53); Hemoglobin 12.6 g/dL (13.5-17.5); Lymphocytes Absolute Auto 2600 /uL (1100-4500); Lymphocytes Percent Auto 11.8 % (25-40); Mean Corpuscular HGB Conc 33.2 % (30-36); Mean Corpuscular Hemoglobin 31.5 PG (26-34); Mean Corpuscular Volume 94.9 fL (80-100); Monocytes Absolute Auto 2000 /uL (0-900); Monocytes Percent Auto 9.1 % (3-14); Neutrophils Absolute Auto 17000 /uL (1500-7000); Neutrophils Percent Auto 78.4 % (50-75); Platelet Count 301 X10^3/uL (150-400); Red Cell Distribution Width 15.6 % (11.6-14.8); White Blood Cell Count 21.7 X10^3/uL (4.5-11.0)
[2018-11-26 19:05] LABS: INR 0.9 (0.9-1.3); Prothrombin Time 10.7 SECONDS (10.1-12.7)
[2018-11-26 19:08] LABS: Alanine Aminotransferase 33 IU/L (21-72); Albumin Globulin Ratio 1.4 (1.0-2.8); Alkaline Phosphatase 74 U/L (38-126); Aspartate Aminotransferase 23 IU/L (17-59); Bilirubin Total 0.3 mg/dL (0.2-1.3); Blood Urea Nitrogen 20 mg/dL (9-20); Calcium 9.6 mg/dL (8.4-10.2); Carbon Dioxide 26 mmol/L (22-32); Chloride 98 mmol/L (98-107); Estimated Glomerular Filt Rate > 60.0 mL/min (>60); Globulin 2.8 g/dL (1.7-4.1); Glucose 106 mg/dL (80-110); HEMOLYSIS 40 (0-50); Potassium 3.8 mmol/L (3.4-5.1); Sodium 138 mmol/L (137-145); Total Protein 6.8 g/dL (6.3-8.2)
[2018-11-26 19:38] LABS: Thyroid Stimulating Hormone 4.33 uIU/mL (0.47-4.68)
== END ==
LOC: LAB 18:35
PROVIDERS: Visit Provider Registered Nurse
DX: K76.9 Liver disease, unspecified (principal); R63.4 Abnormal weight loss
CPT/HCPCS: 80053; 84443; 85025; 85610

== ENCOUNTER → 2018-12-01 08:23 | Outpatient (REF) | payer OTHER, MEDICAID, SELFPAY ==
[2018-09-30 13:14] VITALS: BMI 14.3
[2018-09-30 15:16] VITALS: PULSE 93; RESP 20; O2SAT 91
[2018-12-01 10:02] LABS: Prothrombin Time 11.8 SECONDS (10.1-12.7)
[2018-12-01 10:14] LABS: Add Manual Diff / Slide Review NO; Basophils Absolute Auto 100 /uL (0-100); Basophils Percent Auto 0.5 % (0-2); Eosinophils Absolute Auto 200 /uL (0-450); Eosinophils Percent Auto 1.3 % (2-4); Lymphocytes Absolute Auto 3500 /uL (1100-4500); Lymphocytes Percent Auto 24.5 % (25-40); Mean Corpuscular HGB Conc 34.3 % (30-36); Mean Corpuscular Hemoglobin 31.8 PG (26-34); Mean Corpuscular Volume 92.6 fL (80-100); Monocytes Absolute Auto 1500 /uL (0-900); Monocytes Percent Auto 10.7 % (3-14); Neutrophils Absolute Auto 8900 /uL (1500-7000); Platelet Count 297 X10^3/uL (150-400); Red Blood Cell Count 3.78 X10^6/uL (4.5-5.9); Red Cell Distribution Width 15.2 % (11.6-14.8); White Blood Cell Count 14.1 X10^3/uL (4.5-11.0)
[2018-12-01 11:59] LABS: BUN Creatinine Ratio 32.5 (6-22); Blood Urea Nitrogen 13 mg/dL (9-20); Calcium 8.8 mg/dL (8.4-10.2); Carbon Dioxide 32 mmol/L (22-32); Chloride 98 mmol/L (98-107); Estimated Glomerular Filt Rate > 60.0 mL/min (>60); Glucose 96 mg/dL (80-110); HEMOLYSIS < 15 (0-50); Potassium 3.7 mmol/L (3.4-5.1); Sodium 138 mmol/L (137-145)
== END ==
LOC: LAB 08:23
PROVIDERS: Visit Provider Nurse Practitioner Family
DX: I10 Essential (primary) hypertension (principal); D72.829 Elevated white blood cell count, unspecified; Z79.01 Long term (current) use of anticoagulants
CPT/HCPCS: 36415; 80048; 85025; 85610

== ENCOUNTER → 2018-12-29 09:39 | Outpatient (ROUT) | payer OTHER, MEDICAID, SELFPAY ==
[2018-09-30 13:14] VITALS: BMI 14.3
[2018-09-30 15:16] VITALS: PULSE 93; RESP 20; O2SAT 91
[2018-12-29 10:13] LABS: Add Manual Diff / Slide Review NO; Basophils Absolute Auto 100 /uL (0-100); Basophils Percent Auto 0.6 % (0-2); Eosinophils Absolute Auto 300 /uL (0-450); Eosinophils Percent Auto 1.9 % (2-4); Hematocrit 35.6 % (41-53); Hemoglobin 11.6 g/dL (13.5-17.5); Lymphocytes Absolute Auto 3700 /uL (1100-4500); Lymphocytes Percent Auto 28.4 % (25-40); Mean Corpuscular HGB Conc 32.6 % (30-36); Mean Corpuscular Hemoglobin 30.6 PG (26-34); Mean Corpuscular Volume 93.9 fL (80-100); Monocytes Absolute Auto 1500 /uL (0-900); Monocytes Percent Auto 11.3 % (3-14); Neutrophils Absolute Auto 7600 /uL (1500-7000); Neutrophils Percent Auto 57.8 % (50-75); Platelet Count 287 X10^3/uL (150-400); Red Blood Cell Count 3.79 X10^6/uL (4.5-5.9); Red Cell Distribution Width 15.5 % (11.6-14.8); White Blood Cell Count 13.2 X10^3/uL (4.5-11.0)
== END ==
PROVIDERS: Visit Provider Internal Medicine
DX: D72.829 Elevated white blood cell count, unspecified (principal)
CPT/HCPCS: 36415; 85025

== ENCOUNTER → 2019-02-23 08:28 | Outpatient (ROUT) | payer OTHER, MEDICAID, SELFPAY ==
[2018-09-30 13:14] VITALS: BMI 14.3
[2018-09-30 15:16] VITALS: PULSE 93; RESP 20; O2SAT 91
[2019-02-23 10:12] LABS: Prothrombin Time 11.3 SECONDS (10.1-12.7)
[2019-02-23 10:13] LABS: Add Manual Diff / Slide Review NO; Basophils Absolute Auto 100 /uL (0-100); Basophils Percent Auto 0.6 % (0-2); Eosinophils Absolute Auto 200 /uL (0-450); Eosinophils Percent Auto 1.1 % (2-4); Hematocrit 39.2 % (41-53); Hemoglobin 12.8 g/dL (13.5-17.5); Lymphocytes Absolute Auto 3800 /uL (1100-4500); Lymphocytes Percent Auto 21.8 % (25-40); Mean Corpuscular HGB Conc 32.8 % (30-36); Mean Corpuscular Hemoglobin 30.4 PG (26-34); Mean Corpuscular Volume 92.8 fL (80-100); Monocytes Absolute Auto 1900 /uL (0-900); Monocytes Percent Auto 10.5 % (3-14); Neutrophils Absolute Auto 11600 /uL (1500-7000); Platelet Count 292 X10^3/uL (150-400); Red Blood Cell Count 4.22 X10^6/uL (4.5-5.9); Red Cell Distribution Width 15.7 % (11.6-14.8); White Blood Cell Count 17.7 X10^3/uL (4.5-11.0)
[2019-02-23 10:26] LABS: BUN Creatinine Ratio 32.5 (6-22); Blood Urea Nitrogen 13 mg/dL (9-20); Calcium 9.4 mg/dL (8.4-10.2); Carbon Dioxide 35 mmol/L (22-32); Chloride 101 mmol/L (98-107); Estimated Glomerular Filt Rate > 60.0 mL/min (>60); Glucose 109 mg/dL (80-110); HEMOLYSIS < 15 (0-50); Potassium 3.9 mmol/L (3.4-5.1); Sodium 144 mmol/L (137-145)
== END ==
PROVIDERS: Visit Provider Internal Medicine
DX: D72.829 Elevated white blood cell count, unspecified (principal); Z79.899 Other long term (current) drug therapy; K72.90 Hepatic failure, unspecified without coma
CPT/HCPCS: 36415; 80048; 85025; 85610

== ENCOUNTER → 2019-03-02 07:17 | Outpatient (ROUT) | payer OTHER, MEDICAID, SELFPAY ==
[2018-09-30 13:14] VITALS: BMI 14.3
[2018-09-30 15:16] VITALS: PULSE 93; RESP 20; O2SAT 91
[2019-03-02 07:55] LABS: Add Manual Diff / Slide Review NO; Basophils Absolute Auto 100 /uL (0-100); Basophils Percent Auto 0.6 % (0-2); Eosinophils Absolute Auto 300 /uL (0-450); Eosinophils Percent Auto 1.6 % (2-4); Hematocrit 37.8 % (41-53); Hemoglobin 12.4 g/dL (13.5-17.5); Lymphocytes Absolute Auto 2900 /uL (1100-4500); Mean Corpuscular HGB Conc 32.9 % (30-36); Mean Corpuscular Hemoglobin 30.4 PG (26-34); Mean Corpuscular Volume 92.3 fL (80-100); Monocytes Absolute Auto 1600 /uL (0-900); Monocytes Percent Auto 10.2 % (3-14); Neutrophils Absolute Auto 11100 /uL (1500-7000); Neutrophils Percent Auto 69.6 % (50-75); Platelet Count 284 X10^3/uL (150-400); Red Blood Cell Count 4.09 X10^6/uL (4.5-5.9); Red Cell Distribution Width 15.9 % (11.6-14.8); White Blood Cell Count 15.9 X10^3/uL (4.5-11.0)
== END ==
PROVIDERS: Visit Provider Nurse Practitioner Family
DX: D72.829 Elevated white blood cell count, unspecified (principal)
CPT/HCPCS: 36415; 85025

== ENCOUNTER → 2019-03-09 07:37 | Outpatient (ROUT) | payer OTHER, MEDICAID, SELFPAY ==
[2018-09-30 13:14] VITALS: BMI 14.3
[2018-09-30 15:16] VITALS: PULSE 93; RESP 20; O2SAT 91
[2019-03-09 08:25] LABS: Add Manual Diff / Slide Review NO; Basophils Absolute Auto 0 /uL (0-100); Basophils Percent Auto 0.2 % (0-2); Eosinophils Absolute Auto 0 /uL (0-450); Hematocrit 36.4 % (41-53); Hemoglobin 11.9 g/dL (13.5-17.5); Lymphocytes Absolute Auto 3900 /uL (1100-4500); Lymphocytes Percent Auto 17.6 % (25-40); Mean Corpuscular HGB Conc 32.8 % (30-36); Mean Corpuscular Hemoglobin 30.5 PG (26-34); Mean Corpuscular Volume 93.1 fL (80-100); Monocytes Absolute Auto 1600 /uL (0-900); Monocytes Percent Auto 7.2 % (3-14); Neutrophils Absolute Auto 16500 /uL (1500-7000); Platelet Count 289 X10^3/uL (150-400); Red Blood Cell Count 3.91 X10^6/uL (4.5-5.9); Red Cell Distribution Width 15.8 % (11.6-14.8); White Blood Cell Count 21.9 X10^3/uL (4.5-11.0)
== END ==
PROVIDERS: Visit Provider Internal Medicine
DX: T78.40XA Allergy, unspecified, initial encounter (principal)
CPT/HCPCS: 36415; 85025

== ENCOUNTER 2019-03-14 16:13 | Inpatient (IN) | payer OTHER, MEDICAID, SELFPAY ==
[2018-09-30 13:14] VITALS: BMI 14.3
[2018-09-30 15:16] VITALS: PULSE 93; RESP 20; O2SAT 91
[2019-03-14] VITALS (13 sets, daily range): BP systolic 114–143; BP diastolic 64–89; PULSE 61–97; RESP 13–36; TEMP 26.8–37; O2SAT 88–98; BMI 13.3
--- NOTE | 2019-03-14 16:19 | DI.RAD.S_ITS ---
PROCEDURE: XR CHEST 1V INDICATIONS: SOB, cough, MS change TECHNIQUE: One view of the chest was acquired. COMPARISON: [facility], CR, XR CHEST 1V, 10/15/2018, 12:53. FINDINGS: Surgical changes and devices: None. Lungs and pleura: Lungs are clear. No pleural effusions or pneumothorax. The lung volumes are large and the diaphragms are flattened suggesting emphysema. Mediastinum: Mediastinal contours appear normal. Heart size is normal. Bones and chest wall: No suspicious bony lesions. Overlying soft tissues appear unremarkable. IMPRESSION: No acute cardiopulmonary findings. Emphysematous change. Dictated by: Amanda Alston M.D. on 03/14/2019 at 16:29 Approved by: Amanda Alston M.D. on 03/14/2019 at 16:30
--- NOTE | 2019-03-14 16:20 | PC.NURSE ---
pt normally on 2l nc, increased to 4l due to low o2 sats.
--- NOTE | 2019-03-14 16:22 | RT ---
Attempted EKG. Unable to obtain a good tracing due to patient's work of breathing. Physician aware.
[2019-03-14] MEDS: methylPREDNISolone 125 MG/2 ML VIAL IV (16:29)
[2019-03-14 16:35] LABS: Add Manual Diff / Slide Review NO; Basophils Absolute Auto 100 /uL (0-100); Basophils Percent Auto 0.5 % (0-2); Eosinophils Absolute Auto 0 /uL (0-450); Eosinophils Percent Auto 0.2 % (2-4); Hemoglobin 12.9 g/dL (13.5-17.5); Lymphocytes Absolute Auto 1700 /uL (1100-4500); Mean Corpuscular Volume 93.8 fL (80-100); Monocytes Absolute Auto 2000 /uL (0-900); Monocytes Percent Auto 10.3 % (3-14); Neutrophils Absolute Auto 15300 /uL (1500-7000); Platelet Count 290 X10^3/uL (150-400); Red Blood Cell Count 4.16 X10^6/uL (4.5-5.9); Red Cell Distribution Width 15.5 % (11.6-14.8); White Blood Cell Count 19.1 X10^3/uL (4.5-11.0)
[2019-03-14 16:44] LABS: Blood Urea Nitrogen 16 mg/dL (9-20); Calcium 9.7 mg/dL (8.4-10.2); Chloride 100 mmol/L (98-107); Creatine Kinase 78 U/L (55-170); Estimated Glomerular Filt Rate > 60.0 mL/min (>60); Glucose 168 mg/dL (80-110); HEMOLYSIS < 15 (0-50); Lactate (Lactic Acid) 1.2 mmol/L (0.7-2.1); Magnesium 1.7 mg/dL (1.6-2.3); Potassium 3.6 mmol/L (3.4-5.1); Sodium 148 mmol/L (137-145)
--- NOTE | 2019-03-14 16:51 | ED.SOB ---
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 He has had subjective fever, fatigue it is not acting at his baseline per nursing staff. He lives at a local correction facility and had stepped out of the facility to smoke a cigarette, which he is not allowed to do and his shortness of breath started at that time. He is chronically on 2 L of oxygen by nasal cannula at baseline. On arrival patient had pulse ox in the mid 80s, oxygen was increased to 4 L and pulse ox improved, mental status remained the same MD Complaint: shortness of breath and cough Onset (ago): minute(s) Context: smoke/fume exposure Severity: moderate Consistency/Duration: constant Relieving factors: oxygen Exacerbating factors: movement Known history of: COPD Associated symptoms: cough and sputum production Treatment prior to arrival: oxygen and bronchodilator Related Data Home oxygen amount: 2 liters Home Medications Medication Instructions Recorded Confirmed Dulera 2 puff INHALATION BID 09/30/18 03/14/19 Spiriva with HandiHaler 1 cap INHALATION DAILY 09/30/18 03/14/19 acetaminophen 650 mg PO Q4H PRN 09/30/18 03/14/19 albuterol sulfate 2 puff INHALATION Q4H PRN 09/30/18 03/14/19 aspirin 81 mg PO DAILY 09/30/18 03/14/19 atorvastatin 20 mg PO BEDTIME 09/30/18 03/14/19 bisacodyl 10 mg MA PRN PRN 09/30/18 03/14/19 cholecalciferol (vitamin D3) 2,000 unit PO DAILY 09/30/18 03/14/19 [Vitamin D3] diltiazem HCl 180 mg PO BID 09/30/18 03/14/19 doxazosin 4 mg PO DAILY 09/30/18 03/14/19 fludrocortisone 0.1 mg PO DAILY 09/30/18 03/14/19 losartan 25 mg PO DAILY 09/30/18 03/14/19 magnesium hydroxide [Milk of 30 ml PO PRN PRN 09/30/18 03/14/19 Magnesia] morphine 15 mg PO Q8H 09/30/18 03/14/19 pantoprazole 40 mg PO DAILY 09/30/18 03/14/19 paroxetine HCl [Paxil] 20 mg PO DAILY 09/30/18 03/14/19 lorazepam 0.5 mg PO Q4H PRN 10/15/18 03/14/19 multivitamin with minerals 1 tab PO DAILY 10/15/18 03/14/19 Previous Rx's Medication Instructions Recorded ipratropium-albuterol 3 ml INHALATION QID #1 ml 10/02/18 Allergies Allergy/AdvReac Type Severity Reaction Status Date / Time No Known Drug Allergies Allergy Verified 03/14/19 16:17 Review of Systems Constitutional Denies chills, Reports fatigue, Denies fever(s), Denies lethargy and Reports weakness Eyes Denies change in vision, Denies eye discharge, Denies irritation and Denies loss of vision ENT Ears, Nose, Mouth, and Throat: Denies change in voice, Denies neck pain and Denies sore throat Cardiovascular Denies chest pain, Denies irregular heart rhythm, Denies lightheadedness, Denies palpitations, Reports dyspnea, Denies dyspnea on exertion and Denies orthopnea Respiratory Reports chest congestion, Reports cough, Reports dyspnea, Denies dyspnea on exertion and Reports wheezing Gastrointestinal Gastrointestinal: Denies abdominal pain, Denies change in bowel habits, Denies diarrhea, Denies nausea and Denies vomiting Genitourinary Denies hematuria, Denies flank pain, Denies urinary incontinence and Denies urinary urgency Musculoskeletal Denies neck pain Integumentary/Breasts Denies pruritus, Denies erythema, Denies rash and Denies wounds Neurologic Denies confusion, Denies loss of vision and Reports weakness Psychiatric Denies anxiety, Denies confusion, Denies depression, Denies homicidal ideation and Denies suicidal ideation Endocrine Reports fatigue and Denies palpitations Hematologic/Lymphatic Denies easy bruising Allergic/Immunologic Reports wheezing PFSH Medical History Alcohol abuse (Acute) Alcoholic cirrhosis of liver without ascites (Acute) Anemia (Acute) Atrial fibrillation (Acute) BPH (benign prostatic hyperplasia) (Acute) COPD (chronic obstructive pulmonary disease) (Acute) Cardiomyopathy (Acute) Chronic pain (Acute) Constipation (Acute) Depression (Acute) Femur fracture, right (Acute) Hyperlipidemia (Acute) Hypertension (Acute) Osteoarthritis (Acute) Peripheral vascular disease (Acute) Family History Mother No known health problems Father No known health problems Social History alcohol intake: current Family History Mother No known health problems Father No known health problems Social History alcohol intake: current Exam Narrative Exam Narrative: GENERAL: 68-year-old male, chronically ill and in obvious distress, loud, coarse respirations noted. Patient obtain ended, apparent departure from baseline per nursing staff the facility, malnourished, temporal wasting and disheveled appearance, frail HEAD: Atraumatic. Normocephalic. EYES: Pupils equal round and reactive. Extraocular motions intact. No scleral icterus. No injection or drainage. ENT: Poor dentition throughout Nose without bleeding, purulent drainage or septal hematoma. Throat without erythema, tonsillar hypertrophy or exudate. Uvula midline. Airway patent. NECK: Trachea midline. No JVD or lymphadenopathy. Supple, nontender, no meningeal signs. CARDIOVASCULAR: Regular rate and rhythm without murmurs, gallops, or rubs. RESPIRATORY: Decreased breath sounds bilaterally with a prolonged expiratory phase and coarse, harsh lung sounds GASTROINTESTINAL: Abdomen soft, non-tender, nondistended. No hepato-splenomegaly, or palpable masses. No guarding. EXTREMITIES: No clubbing, cyanosis, or edema. No joint tenderness, effusion, or edema noted. BACK: Nontender without deformity or crepitance. No flank tenderness. NEURO: AOx3. SKIN: No rash or erythema. Initial Vital Signs Initial Vital Signs: Vital Signs Temperature 98.6 F 03/14/19 16:17 Pulse Rate 84 03/14/19 16:17 Respiratory Rate 36 H 03/14/19 16:17 Blood Pressure 142/74 H 03/14/19 16:17 Pulse Oximetry 88 L 03/14/19 16:17 Course Orders Ordered: ED Orders 03/14/19 16:16 Arterial Blood Gas Stat 03/14/19 16:17 Consult to Respiratory Therapy Evaluate & Treat EKG-12 Lead Stat 03/14/19 16:19 XR chest 1V Stat 03/14/19 16:23 B Type Natriuretic Peptide Stat Basic Metabolic Panel Stat Blood Culture Stat Complete Blood Count AUTO DIFF Stat Lactate (Lactic Acid) Stat Magnesium Stat Procalcitonin Stat Troponin & CK Cardiac Panel Stat Discontinued Medications Albuterol/Ipratropium (Duoneb) 3 ml INH NOW ONE Stop: 03/14/19 16:17 Methylprednisolone (Solu-Medrol 125 Mg Vial) 125 mg IV NOW ONE Stop: 03/14/19 16:17 Last Admin: 03/14/19 16:29 Dose: 125 mg Vital Signs - 8 hr 03/14/19 16:17 03/14/19 16:19 03/14/19 17:00 Temperature 98.6 F Pulse Rate 84 82 Respiratory Rate 36 H 35 H Blood Pressure 142/74 H Blood Pressure [Left Arm] 138/74 Pulse Oximetry 88 L 94 MDM - SOB/Dyspnea Lab Data Result diagrams: 03/14/19 16:23 03/14/19 16:23 Lab Results 03/14/19 03/14/19 03/14/19 Range/Units 16:23 16:23 16:23 WBC 19.1 H (4.5-11.0) X10^3/uL RBC 4.16 L (4.5-5.9) X10^6/uL Hgb 12.9 L (13.5-17.5) g/dL Hct 39.0 L (41-53) % MCV 93.8 (80-100) fL MCH 31.0 (26-34) PG MCHC 33.0 (30-36) % RDW 15.5 H (11.6-14.8) % Plt Count 290 (150-400) X10^3/uL Neut % (Auto) 80.0 H (50-75) % Lymph % (Auto) 9.0 L (25-40) % [place] % (Auto) 10.3 (3-14) % Eos % (Auto) 0.2 L (2-4) % Baso % (Auto) 0.5 (0-2) % Neut # (Auto) 61456 H (7948-5899) /uL Lymph # (Auto) 1700 (8972-4552) /uL [place] # (Auto) 2000 H (0-900) /uL Eos # (Auto) 0 (0-450) /uL Baso # (Auto) 100 (0-100) /uL Sodium 148 H (137-145) mmol/L Potassium 3.6 (3.4-5.1) mmol/L Chloride 100 (98-107) mmol/L Carbon Dioxide 40 H* (22-32) mmol/L BUN 16 (9-20) mg/dL Creatinine 0.40 L (0.66-1.25) mg/dL Estimated GFR > 60.0 (>60) mL/min BUN/Creatinine Ratio 40.0 H (6-22) Glucose 168 H (80-110) mg/dL Lactate (0.7-2.1) mmol/L Calcium 9.7 (8.4-10.2) mg/dL Magnesium 1.7 (1.6-2.3) mg/dL Total Creatine Kinase 78 (55-170) U/L CK-MB (CK-2) TNP CK-MB (CK-2) Rel Index TNP Troponin I < 0.012 (0.01-0.034) ng/mL B-Natriuretic Peptide < 100 (<100) Procalcitonin < 0.05 (<0.5) ng/mL 03/14/19 Range/Units 16:23 WBC (4.5-11.0) X10^3/uL RBC (4.5-5.9) X10^6/uL Hgb (13.5-17.5) g/dL Hct (41-53) % MCV (80-100) fL MCH (26-34) PG MCHC (30-36) % RDW (11.6-14.8) % Plt Count (150-400) X10^3/uL Neut % (Auto) (50-75) % Lymph % (Auto) (25-40) % [place] % (Auto) (3-14) % Eos % (Auto) (2-4) % Baso % (Auto) (0-2) % Neut # (Auto) (9549-4227) /uL Lymph # (Auto) (2713-2106) /uL [place] # (Auto) (0-900) /uL Eos # (Auto) (0-450) /uL Baso # (Auto) (0-100) /uL Sodium (137-145) mmol/L Potassium (3.4-5.1) mmol/L Chloride (98-107) mmol/L Carbon Dioxide (22-32) mmol/L BUN (9-20) mg/dL Creatinine (0.66-1.25) mg/dL Estimated GFR (>60) mL/min BUN/Creatinine Ratio (6-22) Glucose (80-110) mg/dL Lactate 1.2 (0.7-2.1) mmol/L Calcium (8.4-10.2) mg/dL Magnesium (1.6-2.3) mg/dL Total Creatine Kinase (55-170) U/L CK-MB (CK-2) CK-MB (CK-2) Rel Index Troponin I (0.01-0.034) ng/mL B-Natriuretic Peptide (<100) Procalcitonin (<0.5) ng/mL Discharge Plan Departure Prescriptions: No Action atorvastatin 20 mg Tablet 20 mg PO BEDTIME RF: 0 aspirin 81 mg Tablet,Delayed Release (Dr/Ec) 81 mg PO DAILY RF: 0 paroxetine HCl [Paxil] 20 mg Tablet 20 mg PO DAILY RF: 0 pantoprazole 40 mg Tablet,Delayed Release (Dr/Ec) 40 mg PO DAILY RF: 0 losartan 25 mg Tablet 25 mg PO DAILY RF: 0 doxazosin 4 mg Tablet 4 mg PO DAILY RF: 0 fludrocortisone 0.1 mg Tablet 0.1 mg PO DAILY RF: 0 Spiriva with HandiHaler 18 mcg Capsule, W/Inhalation Device 1 cap INHALATION DAILY RF: 0 cholecalciferol (vitamin D3) [Vitamin D3] 2,000 unit Tablet 2,000 unit PO DAILY RF: 0 acetaminophen 325 mg Tablet 650 mg PO Q4H PRN (Reason: Pain, Moderate) RF: 0 diltiazem HCl 180 mg Capsule,Extended Release 24hr 180 mg PO BID RF: 0 magnesium hydroxide [Milk of Magnesia] 400 mg/5 mL Suspension 30 ml PO PRN PRN (Reason: Constipation) RF: 0 bisacodyl 10 mg Suppository 10 mg MA PRN PRN (Reason: Constipation) RF: 0 morphine 15 mg Tablet Extended Release 15 mg PO Q8H RF: 0 albuterol sulfate 90 mcg/actuation Hfa Aerosol Inhaler 2 puff INHALATION Q4H PRN (Reason: Wheezing) RF: 0 Dulera 100-5 mcg/actuation Hfa Aerosol Inhaler 2 puff INHALATION BID RF: 0 ipratropium-albuterol 0.5 mg-3 mg(2.5 mg base)/3 mL Solution For Nebulization 3 ml INHALATION QID Qty: 1 RF: 0 multivitamin with minerals Tablet 1 tab PO DAILY RF: 0 lorazepam 0.5 mg tablet 0.5 mg PO Q4H PRN (Reason: Anxiety) RF: 0
[2019-03-14 16:53] LABS: B Type Natriuretic Peptide < 100 (<100)
--- NOTE | 2019-03-14 16:54 | ED_ITS ---
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 He has had subjective fever, fatigue it is not acting at his baseline per nursing staff. He lives at a local senior living facility and had stepped out of the facility to smoke a cigarette, which he is not allowed to do and his shortness of breath started at that time. He is chronically on 2 L of oxygen by nasal cannula at baseline. On arrival patient had pulse ox in the mid 80s, oxygen was increased to 4 L and pulse ox improved, mental status remained the same MD Complaint: shortness of breath and cough Onset (ago): minute(s) Context: smoke/fume exposure Severity: moderate Consistency/Duration: constant Relieving factors: oxygen Exacerbating factors: movement Known history of: COPD Associated symptoms: cough and sputum production Treatment prior to arrival: oxygen and bronchodilator Related Data Home oxygen amount: 2 liters Home Medications Medication Instructions Recorded Confirmed Dulera 2 puff INHALATION BID 09/30/18 03/14/19 Spiriva with HandiHaler 1 cap INHALATION DAILY 09/30/18 03/14/19 acetaminophen 650 mg PO Q4H PRN 09/30/18 03/14/19 albuterol sulfate 2 puff INHALATION Q4H PRN 09/30/18 03/14/19 aspirin 81 mg PO DAILY 09/30/18 03/14/19 atorvastatin 20 mg PO BEDTIME 09/30/18 03/14/19 bisacodyl 10 mg NC PRN PRN 09/30/18 03/14/19 cholecalciferol (vitamin D3) 2,000 unit PO DAILY 09/30/18 03/14/19 [Vitamin D3] diltiazem HCl 180 mg PO BID 09/30/18 03/14/19 doxazosin 4 mg PO DAILY 09/30/18 03/14/19 fludrocortisone 0.1 mg PO DAILY 09/30/18 03/14/19 losartan 25 mg PO DAILY 09/30/18 03/14/19 magnesium hydroxide [Milk of 30 ml PO PRN PRN 09/30/18 03/14/19 Magnesia] morphine 15 mg PO Q8H 09/30/18 03/14/19 pantoprazole 40 mg PO DAILY 09/30/18 03/14/19 paroxetine HCl [Paxil] 20 mg PO DAILY 09/30/18 03/14/19 lorazepam 0.5 mg PO Q4H PRN 10/15/18 03/14/19 multivitamin with minerals 1 tab PO DAILY 10/15/18 03/14/19 Previous Rx's Medication Instructions Recorded ipratropium-albuterol 3 ml INHALATION QID #1 ml 10/02/18 Allergies Allergy/AdvReac Type Severity Reaction Status Date / Time No Known Drug Allergies Allergy Verified 03/14/19 16:17 Review of Systems Constitutional Denies chills, Reports fatigue, Denies fever(s), Denies lethargy and Reports weakness Eyes Denies change in vision, Denies eye discharge, Denies irritation and Denies loss of vision ENT Ears, Nose, Mouth, and Throat: Denies change in voice, Denies neck pain and Denies sore throat Cardiovascular Denies chest pain, Denies irregular heart rhythm, Denies lightheadedness, Denies palpitations, Reports dyspnea, Denies dyspnea on exertion and Denies orthopnea Respiratory Reports chest congestion, Reports cough, Reports dyspnea, Denies dyspnea on ex ertion and Reports wheezing Gastrointestinal Gastrointestinal: Denies abdominal pain, Denies change in bowel habits, Denies diarrhea, Denies nausea and Denies vomiting Genitourinary Denies hematuria, Denies flank pain, Denies urinary incontinence and Denies urinary urgency Musculoskeletal Denies neck pain Integumentary/Breasts Denies pruritus, Denies erythema, Denies rash and Denies wounds Neurologic Denies confusion, Denies loss of vision and Reports weakness Psychiatric Denies anxiety, Denies confusion, Denies depression, Denies homicidal ideation and Denies suicidal ideation Endocrine Reports fatigue and Denies palpitations Hematologic/Lymphatic Denies easy bruising Allergic/Immunologic Reports wheezing PFSH Medical History Alcohol abuse (Acute) Alcoholic cirrhosis of liver without ascites (Acute) Anemia (Acute) Atrial fibrillation (Acute) BPH (benign prostatic hyperplasia) (Acute) COPD (chronic obstructive pulmonary disease) (Acute) Cardiomyopathy (Acute) Chronic pain (Acute) Constipation (Acute) Depression (Acute) Femur fracture, right (Acute) Hyperlipidemia (Acute) Hypertension (Acute) Osteoarthritis (Acute) Peripheral vascular disease (Acute) Family History Mother No known health problems Father No known health problems Social History alcohol intake: current Family History Mother No known health problems Father No known health problems Social History alcohol intake: current Exam Narrative Exam Narrative: GENERAL: 68-year-old male, chronically ill and in obvious distress, loud, coarse respirations noted. Patient obtain ended, apparent departure from baseline per nursing staff the facility, malnourished, temporal wasting and disheveled appearance, frail HEAD: Atraumatic. Normocephalic. EYES: Pupils equal round and reactive. Extraocular motions intact. No scleral icterus. No injection or drainage. ENT: Poor dentition throughout Nose without bleeding, purulent drainage or septal hematoma. Throat without erythema, tonsillar hypertrophy or exudate. Uvula midline. Airway patent. NECK: Trachea midline. No JVD or lymphadenopathy. Supple, nontender, no meningeal signs. CARDIOVASCULAR: Regular rate and rhythm without murmurs, gallops, or rubs. RESPIRATORY: Decreased breath sounds bilaterally with a prolonged expiratory phase and coarse, harsh lung sounds GASTROINTESTINAL: Abdomen soft, non-tender, nondistended. No hepato- splenomegaly, or palpable masses. No guarding. EXTREMITIES: No clubbing, cyanosis, or edema. No joint tenderness, effusion, or edema noted. BACK: Nontender without deformity or crepitance. No flank tenderness. NEURO: AOx3. SKIN: No rash or erythema. Initial Vital Signs Initial Vital Signs: Vital Signs Temperature 98.6 F 03/14/19 16:17 Pulse Rate 84 03/14/19 16:17 Respiratory Rate 36 H 03/14/19 16:17 Blood Pressure 142/74 H 03/14/19 16:17 Pulse Oximetry 88 L 03/14/19 16:17 Course Orders Ordered: ED Orders 03/14/19 16:16 Arterial Blood Gas Stat 03/14/19 16:17 Consult to Respiratory Therapy Evaluate & Treat EKG-12 Lead Stat 03/14/19 16:19 XR chest 1V Stat 03/14/19 16:23 B Type Natriuretic Peptide Stat Basic Metabolic Panel Stat Blood Culture Stat Complete Blood Count AUTO DIFF Stat Lactate (Lactic Acid) Stat Magnesium Stat Procalcitonin Stat Troponin & CK Cardiac Panel Stat Discontinued Medications Albuterol/Ipratropium (Duoneb) 3 ml INH NOW ONE Stop: 03/14/19 16:17 Methylprednisolone (Solu-Medrol 125 Mg Vial) 125 mg IV NOW ONE Stop: 03/14/19 16:17 Last Admin: 03/14/19 16:29 Dose: 125 mg Vital Signs - 8 hr 03/14/19 16:17 03/14/19 16:19 03/14/19 17:00 Temperature 98.6 F Pulse Rate 84 82 Respiratory Rate 36 H 35 H Blood Pressure 142/74 H Blood Pressure [Left Arm] 138/74 Pulse Oximetry 88 L 94 MDM - SOB/Dyspnea Lab Data Result diagrams: 03/14/19 16:23 03/14/19 16:23 Lab Results 03/14/19 03/14/19 03/14/19 Range/Units 16:23 16:23 16:23 WBC 19.1 H (4.5-11.0) X10^3/uL RBC 4.16 L (4.5-5.9) X10^6/uL Hgb 12.9 L (13.5-17.5) g/dL Hct 39.0 L (41-53) % MCV 93.8 (80-100) fL MCH 31.0 (26-34) PG MCHC 33.0 (30-36) % RDW 15.5 H (11.6-14.8) % Plt Count 290 (150-400) X10^3/uL Neut % (Auto) 80.0 H (50-75) % Lymph % (Auto) 9.0 L (25-40) % [place] % (Auto) 10.3 (3-14) % Eos % (Auto) 0.2 L (2-4) % Baso % (Auto) 0.5 (0-2) % Neut # (Auto) 98308 H (3704-7481) /uL Lymph # (Auto) 1700 (1822-1443) /uL [place] # (Auto) 2000 H (0-900) /uL Eos # (Auto) 0 (0-450) /uL Baso # (Auto) 100 (0-100) /uL Sodium 148 H (137-145) mmol/L Potassium 3.6 (3.4-5.1) mmol/L Chloride 100 (98-107) mmol/L Carbon Dioxide 40 H* (22-32) mmol/L BUN 16 (9-20) mg/dL Creatinine 0.40 L (0.66-1.25) mg/dL Estimated GFR > 60.0 (>60) mL/min BUN/Creatinine Ratio 40.0 H (6-22) Glucose 168 H (80-110) mg/dL Lactate (0.7-2.1) mmol/L Calcium 9.7 (8.4-10.2) mg/dL Magnesium 1.7 (1.6-2.3) mg/dL Total Creatine Kinase 78 (55-170) U/L CK-MB (CK-2) TNP CK-MB (CK-2) Rel Index TNP Troponin I < 0.012 (0.01-0.034) ng/mL B-Natriuretic Peptide < 100 (<100) Procalcitonin < 0.05 (<0.5) ng/mL 03/14/19 Range/Units 16:23 WBC (4.5-11.0) X10^3/uL RBC (4.5-5.9) X10^6/uL Hgb (13.5-17.5) g/dL Hct (41-53) % MCV (80-100) fL MCH (26-34) PG MCHC (30-36) % RDW (11.6-14.8) % Plt Count (150-400) X10^3/uL Neut % (Auto) (50-75) % Lymph % (Auto) (25-40) % [place] % (Auto) (3-14) % Eos % (Auto) (2-4) % Baso % (Auto) (0-2) % Neut # (Auto) (3712-3635) /uL Lymph # (Auto) (5196-9931) /uL [place] # (Auto) (0-900) /uL Eos # (Auto) (0-450) /uL Baso # (Auto) (0-100) /uL Sodium (137-145) mmol/L Potassium (3.4-5.1) mmol/L Chloride (98-107) mmol/L Carbon Dioxide (22-32) mmol/L BUN (9-20) mg/dL Creatinine (0.66-1.25) mg/dL Estimated GFR (>60) mL/min BUN/Creatinine Ratio (6-22) Glucose (80-110) mg/dL Lactate 1.2 (0.7-2.1) mmol/L Calcium (8.4-10.2) mg/dL Magnesium (1.6-2.3) mg/dL Total Creatine Kinase (55-170) U/L CK-MB (CK-2) CK-MB (CK-2) Rel Index Troponin I (0.01-0.034) ng/mL B-Natriuretic Peptide (<100) Procalcitonin (<0.5) ng/mL Discharge Plan Departure Prescriptions: No Action atorvastatin 20 mg Tablet 20 mg PO BEDTIME RF: 0 aspirin 81 mg Tablet,Delayed Release (Dr/Ec) 81 mg PO DAILY RF: 0 paroxetine HCl [Paxil] 20 mg Tablet 20 mg PO DAILY RF: 0 pantoprazole 40 mg Tablet,Delayed Release (Dr/Ec) 40 mg PO DAILY RF: 0 losartan 25 mg Tablet 25 mg PO DAILY RF: 0 doxazosin 4 mg Tablet 4 mg PO DAILY RF: 0 fludrocortisone 0.1 mg Tablet 0.1 mg PO DAILY RF: 0 Spiriva with HandiHaler 18 mcg Capsule, W/Inhalation Device 1 cap INHALATION DAILY RF: 0 cholecalciferol (vitamin D3) [Vitamin D3] 2,000 unit Tablet 2,000 unit PO DAILY RF: 0 acetaminophen 325 mg Tablet 650 mg PO Q4H PRN (Reason: Pain, Moderate) RF: 0 diltiazem HCl 180 mg Capsule,Extended Release 24hr 180 mg PO BID RF: 0 magnesium hydroxide [Milk of Magnesia] 400 mg/5 mL Suspension 30 ml PO PRN PRN (Reason: Constipation) RF: 0 bisacodyl 10 mg Suppository 10 mg NC PRN PRN (Reason: Constipation) RF: 0 morphine 15 mg Tablet Extended Release 15 mg PO Q8H RF: 0 albuterol sulfate 90 mcg/actuation Hfa Aerosol Inhaler 2 puff INHALATION Q4H PRN (Reason: Wheezing) RF: 0 Dulera 100-5 mcg/actuation Hfa Aerosol Inhaler 2 puff INHALATION BID RF: 0 ipratropium-albuterol 0.5 mg-3 mg(2.5 mg base)/3 mL Solution For Nebulization 3 ml INHALATION QID Qty: 1 RF: 0 multivitamin with minerals Tablet 1 tab PO DAILY RF: 0 lorazepam 0.5 mg tablet 0.5 mg PO Q4H PRN (Reason: Anxiety) RF: 0
[2019-03-14 16:56] LABS: Troponin I < 0.012 ng/mL (0.01-0.034)
[2019-03-14 17:00] LABS: Carbon Dioxide 40 mmol/L (22-32)
[2019-03-14 17:01] LABS: Procalcitonin < 0.05 ng/mL (<0.5)
--- NOTE | 2019-03-14 17:18 | RT ---
Patient placed on BIPAP for work of breathing. He is tolerating it well at this time. Will continue to monitor.
[2019-03-14 17:29] LABS: Albumin 4.1 g/dL (3.5-5.0)
[2019-03-14 17:43] LABS: HCO3 ABG 38 mmol/L (22-26); Oxygen Saturation ABG 92 % (95-100); PCO2 ABG 60.2 mmHg (35-45); PO2 ABG 64 mmHg (80-100); TCO2 ABG 40 mmol/L (21-31); pH ABG 7.41 (7.35-7.45)
[2019-03-14 17:44] LABS: Fractionated Inspired Oxygen 0.28
[2019-03-14] MEDS: CEFTRIAXONE 1 GM/50 ML FROZ.PIGGY IV ×2 (17:44→21:54)
[2019-03-14] MEDS: ALBUTEROL/IPRATROPIUM 3 ML AMPUL INH (18:11)
[2019-03-14 18:17] LABS: Fractionated Inspired Oxygen 0.28; HCO3 ABG 38 mmol/L (22-26); Oxygen Saturation ABG 92 % (95-100); PCO2 ABG 61.3 mmHg (35-45); PO2 ABG 68 mmHg (80-100); TCO2 ABG 40 mmol/L (21-31)
[2019-03-14] MEDS: AZITHROMYCIN 500 MG in DEXTROSE 5% IN WATER 250 ML IV (18:30)
[2019-03-14 20:25] LABS: Phosphorous 2.6 mg/dL (2.3-3.7)
--- NOTE | 2019-03-14 20:48 | DI.RAD.S_ITS ---
PROCEDURE: XR FOOT LT 2V INDICATIONS: trauma TECHNIQUE: 2 views of the foot were acquired. COMPARISON: None. FINDINGS: Bones: No fractures or dislocations. No suspicious bony lesions. Bones are severely osteopenic. Soft tissues: No tibiotalar joint effusion. Achilles tendon appears normal. IMPRESSION: No fracture. No acute osseous lesion. If there are persistent symptoms or clinical suspicion for pathology, then repeat radiographs in 7-10 days or advanced imaging (CT, MRI or bone scan) should be considered for further evaluation. Dictated by: Nina Beckwith MD, PhD on 03/14/2019 at 21:15 Approved by: Nina Beckwith MD, PhD on 03/14/2019 at 21:16
[2019-03-14] MEDS: SODIUM CHLORIDE 0.9% 1,000 ML 100 ML IV (20:53)
[2019-03-14] MEDS: IPRATROPIUM 0.5 MG/2.5 ML NEB INH (22:12)
[2019-03-14] MEDS: MAGNESIUM SULFATE 2 GM/50 ML PIGGYBACK IV (22:38)
--- NOTE | 2019-03-14 23:09 | PC.NURSE ---
Admission Note: Pt admitted to the ER from SNF for respiratory distress on Bipap. Pt arrived from ER on 100% NRB for transport, was breifly tried on 2 L NC, SPO2 remained at 90%, but pt's WOB and RR increased significantly. Pt has mainly been on Bipap, /, FiO2 28%. Brief periods with mask off and on 2 L NC for a break, pt encouraged to cough and oral care done. Pt with wet-sounding cough, but not expecotorating secretions. SPO2 93%, RR 19 and unlabored at this time. RR intermittently up to mid 30s and shallow. Pt in SR with 1st degree AVB. HR 60s-70. SBP 100s-140s. Pt with pencil eraser sized open area on coccyx, severely malnourished, reddened but blanchable thoracic vertebral prominences. Both feet with large bruises, x-ray with no fractures. Pt turned q1-2 hours, bony prominences protected. Pt was incontinent x1 of small amount of dark yellow urine. Pt is oriented to self only, easily startled, and dozing off. Unable to do full admission assessment d/t pt's inability to talk clearly or carry on complicated conversation. Pt refused to have wallet placed in safe. Discussed the merits of this option, but pt ultimately refused. Pt's wallet with $20 bill, a credit card and small electronic/USB wire placed in his belongings bag in closet. Pt is now resting.
[2019-03-14 23:42] LABS: Folate > 20.0 ng/mL (2.76-20.0); Vitamin B12 515 pg/mL (239-931)
[2019-03-14] MEDS: methylPREDNISolone 125 MG/2 ML VIAL 80 MG IV (23:56)
[2019-03-15] VITALS (18 sets, daily range): BP systolic 113–161; BP diastolic 61–77; PULSE 61–101; RESP 18–32; TEMP 31.2–37.1; O2SAT 63–100; BMI 13.4
--- NOTE | 2019-03-15 01:01 | P.HP_ITS ---
History of Present Illness Date Patient Seen: 03/14/19 Time Patient Seen: 19:50 Chief complaint: sob Narrative: Mr Jonatan Clayton is a 68-year-old male history significant for COPD, atrial fibrillation, cardiomyopathy, hypertension, alcoholic cirrhosis, and anemia presents to the ER with acute shortness of breath. The patient is a resident at [facility] who has been on chronic home O2 at 2 liters/minute has been complaining of increasing shortness of breath and per facility staff manifesting mental status changes. The patient reported associated symptoms of fever and fatigue. Today he had left the facility going outside to smoke and upon return had worsening symptoms prompting evaluation in the emergency department. The patient is minimally responsive and unable to provide additional historical information and limited subjective data. Upon arrival in the ER the patient was afebrile with a temperature of 98.6?, heart rate of 84, blood pressure 142/74, respirations 19 saturating 86 %. Oxygen was increased with minimal improvement in his presentation. Patient was started on BiPAP ventilation. Chest x-ray finds no acute cardiopulmonary fi ndings the patient is dry presenting with a BUN creatinine ratio of 40. ABGs drawn finding a pH of 7.41, pCO2 of 60.2, PO2 of 64, HC03 of 38 and a base excess of 14 on 0.28% oxygen. The patient has white cell count of 19, hemoglobin of 12.9 and hematocrit 39 with platelets of 290. His electrolytes within normal limits has a BUN of 16 and creatinine 0.04. His nonfasting glucose is 168. His lactic acid is 1.2 and has a procalcitonin of less than 0.05. His BNP is less than 100 and has troponin that is negative. His magnesium is 1.7. In the ER the patient is started on ceftriaxone 1 g and katalina thromycin 500 mg both IV. He received methylprednisolone 125 mg IV and he receives DuoNeb so and respirations supported by BiPAP. The patient is admitted to the ICU due to acute on chronic respiratory failure requiring ventilatory support. Patient History Medical History Alcohol abuse (Acute) Alcoholic cirrhosis of liver without ascites (Acute) Anemia (Acute) Atrial fibrillation (Acute) BPH (benign prostatic hyperplasia) (Acute) COPD (chronic obstructive pulmonary disease) (Acute) Cardiomyopathy (Acute) Chronic pain (Acute) Constipation (Acute) Depression (Acute) Femur fracture, right (Acute) Hyperlipidemia (Acute) Hypertension (Acute) Osteoarthritis (Acute) Peripheral vascular disease (Acute) Family History Mother No known health problems Father No known health problems Social History Smoking Status: Current every day smoker alcohol intake: current Family & Social History Family History Mother No known health problems Father No known health problems Social History: Prior Living Arrangements Skilled Nurse Facility Safety & Behavioral: Been Physically Hurt or No Threatened By a Person Suicidal Ideation Description None Suicide Plan Description No Plan Tobacco & Substance use: Tobacco type cigarettes Smoking Status Current every day smoker Smoking packs per day 0.1 alcohol intake current alcohol intake frequency 3 or more drinks per day Substance Use Type does not use Comment: Advanced directives: On repeat and persistent questioning the patient indicates he wishes to be FULL CODE and agrees to intubation if necessary however due to patient's altered mental status this will need to be re-evaluated and formalized. No surrogate decision maker is identified. Meds Home Medications Medication Instructions Recorded Confirmed Type Dulera 2 puff INHALATION BID 09/30/18 03/14/19 History Spiriva with HandiHaler 1 cap INHALATION DAILY 09/30/18 03/14/19 History acetaminophen 650 mg PO Q4H PRN 09/30/18 03/14/19 History albuterol sulfate 2 puff INHALATION Q4H PRN 09/30/18 03/14/19 History aspirin 81 mg PO DAILY 09/30/18 03/14/19 History atorvastatin 20 mg PO BEDTIME 09/30/18 03/14/19 History bisacodyl 10 mg LA PRN PRN 09/30/18 03/14/19 History cholecalciferol (vitamin D3) 2,000 unit PO DAILY 09/30/18 03/14/19 History [Vitamin D3] diltiazem HCl 180 mg PO BID 09/30/18 03/14/19 History doxazosin 4 mg PO DAILY 09/30/18 03/14/19 History fludrocortisone 0.1 mg PO DAILY 09/30/18 03/14/19 History losartan 25 mg PO DAILY 09/30/18 03/14/19 History magnesium hydroxide [Milk of 30 ml PO PRN PRN 09/30/18 03/14/19 History Magnesia] morphine 15 mg PO Q8H 09/30/18 03/14/19 History pantoprazole 40 mg PO DAILY 09/30/18 03/14/19 History paroxetine HCl [Paxil] 20 mg PO DAILY 09/30/18 03/14/19 History ipratropium-albuterol 3 ml INHALATION QID #1 ml 10/02/18 03/14/19 Rx lorazepam 0.5 mg PO Q4H PRN 10/15/18 03/14/19 History multivitamin with minerals 1 tab PO DAILY 10/15/18 03/14/19 History Allergies Allergy/AdvReac Type Severity Reaction Status Date / Time No Known Drug Allergies Allergy Verified 03/14/19 16:17 Review of Systems Review of Systems unobtainable due to mental status (Patient is stuporous on BiPAP unable to contribute to history.) Exam Vital Signs (past 8 hours): - 03/14/19 17:18 03/14/19 18:07 03/14/19 18:21 Temperature Pulse Rate 73 81 Respiratory Rate 25 H 29 H Blood Pressure 138/74 Blood Pressure [Left Arm] 137/70 Pulse Oximetry 94 95 03/14/19 19:00 03/14/19 19:29 03/14/19 19:37 Temperature Pulse Rate 69 68 Respiratory Rate 13 22 Blood Pressure 114/64 Blood Pressure [Left Arm] 124/68 Pulse Oximetry 97 96 03/14/19 19:55 03/14/19 22:05 03/14/19 22:14 Temperature 98.1 F 98.1 F Pulse Rate 71 70 Respiratory Rate 29 H 27 H 24 Blood Pressure 143/89 H 127/67 Blood Pressure [Left Arm] Pulse Oximetry 93 95 95 03/15/19 00:00 Temperature 97.2 F L Pulse Rate 62 Respiratory Rate 23 Blood Pressure 113/61 Blood Pressure [Left Arm] Pulse Oximetry 95 Fraction of Inspired Oxygen 26 Oxygen Delivery Method BiPAP Oxygen Flow Rate 2 Narrative Exam Narrative: GENERAL APPEARANCE: Stuporous, poorly nourished, cachectic with BMI of 13.3, unkempt in appearance HEAD: Normocephalic, atraumatic, no scalp lesions. EYES: pupils equal, round, reactive to light and accommodation, sclera non- icteric, vision will track bilaterally NOSE: sinuses non tender to percussion, no rhinorrhea ORAL CAVITY: mucosa moist without lesions or exudate THROAT: Not visualized NECK/THYROID: neck supple, no jugular venous distention, no carotid bruit, no thyromegaly, trachea midline. LYMPH NODES: no cervical or supraclavicular lymphadenopathy. SKIN: Skin is dry with poor turgor, appears hyperpigmented HEART: regular rate and rhythm, heart tones distant, S1-S2 without murmur, no rubs or gallops, no edema LUNGS: Breath sounds with bilateral rhonchi central and peripheral, no crackles appreciated CHEST: Symmetrical movement, chest abdomen see-saw respiration, on BiPAP ABDOMEN: Firm, scaphoid, no distention, generalized abdominal tenderness on palpation, no peritoneal signs, no organomegaly, no flank or suprapubic tenderness, active bowel tones. BACK: Nontender to palpation EXTREMITIES: Pain with movement of lower extremities, ecchymoses left forefoot, poor strength, 4/5 bilateral upper extremities, 3/5 bilateral lower extremities NEUROLOGIC: Stuporous, GCS 12, responsive to tactile/noxious stimulus with eye opening but will not maintain focus. Will follow commands but confused as to situation at and location. PSYCH: No agitation, cooperative, will follow commands. Objective Labs Result Diagrams: 03/14/19 16:23 03/14/19 16:23 Labs: Laboratory Results - last 24 hr 03/14/19 03/14/19 03/14/19 16:20 16:23 16:23 WBC 19.1 H RBC 4.16 L Hgb 12.9 L Hct 39.0 L MCV 93.8 MCH 31.0 MCHC 33.0 RDW 15.5 H Plt Count 290 Neut % (Auto) 80.0 H Lymph % (Auto) 9.[address] [place] % (Auto) 10.3 Eos % (Auto) 0.2 L Baso % (Auto) 0.5 Neut # (Auto) 94866 H Lymph # (Auto) 17[address] [facility] # (Auto) 2000 H Eos # (Auto) 0 Baso # (Auto) 100 ABG pH ABG pCO2 ABG pO2 ABG HCO3 ABG Total CO2 ABG O2 Saturation ABG Base Excess FiO2 Sodium 148 H Potassium 3.6 Chloride 100 Carbon Dioxide 40 H* BUN 16 Creatinine 0.40 L Estimated GFR > 60.0 BUN/Creatinine Ratio 40.0 H Glucose 168 H Lactate Calcium 9.7 Phosphorus Magnesium 1.7 Total Creatine Kinase 78 CK-MB (CK-2) TNP CK-MB (CK-2) Rel Index TNP Troponin I < 0.012 B-Natriuretic Peptide < 100 Albumin 4.1 Vitamin B12 Folate Procalcitonin Nasal Screen MRSA (PCR) 03/14/19 03/14/19 03/14/19 16:23 16:23 16:23 WBC RBC Hgb Hct MCV MCH MCHC RDW Plt Count Neut % (Auto) Lymph % (Auto) [facility] % (Auto) Eos % (Auto) Baso % (Auto) Neut # (Auto) Lymph # (Auto) [facility] # (Auto) Eos # (Auto) Baso # (Auto) ABG pH ABG pCO2 ABG pO2 ABG HCO3 ABG Total CO2 ABG O2 Saturation ABG Base Excess FiO2 Sodium Potassium Chloride Carbon Dioxide BUN Creatinine Estimated GFR BUN/Creatinine Ratio Glucose Lactate 1.2 Calcium Phosphorus 2.6 Magnesium Total Creatine Kinase CK-MB (CK-2) CK-MB (CK-2) Rel Index Troponin I B-Natriuretic Peptide Albumin Vitamin B12 Folate Procalcitonin < 0.05 Nasal Screen MRSA (PCR) 03/14/19 03/14/19 03/14/19 16:23 16:44 17:49 WBC RBC Hgb Hct MCV MCH MCHC RDW Plt Count Neut % (Auto) Lymph % (Auto) [facility] % (Auto) Eos % (Auto) Baso % (Auto) Neut # (Auto) Lymph # (Auto) [facility] [place] # (Auto) Eos # (Auto) Baso # (Auto) ABG pH 7.41 7.40 ABG pCO2 60.2 H 61.3 H* ABG pO2 64 L 68 L ABG HCO3 38 H 38 H ABG Total CO2 40 H 40 H ABG O2 Saturation 92 L 92 L ABG Base Excess 14.0 H 13.0 H FiO2 0.28 0.28 Sodium Potassium Chloride Carbon Dioxide BUN Creatinine Estimated GFR BUN/Creatinine Ratio Glucose Lactate Calcium Phosphorus Magnesium Total Creatine Kinase CK-MB (CK-2) CK-MB (CK-2) Rel Index Troponin I B-Natriuretic Peptide Albumin Vitamin B12 515 Folate > 20.0 H Procalcitonin Nasal Screen MRSA (PCR) 03/14/19 20:00 WBC RBC Hgb Hct MCV MCH MCHC RDW Plt Count Neut % (Auto) Lymph % (Auto) [facility] [place] % (Auto) Eos % (Auto) Baso % (Auto) Neut # (Auto) Lymph # (Auto) [facility] [place] # (Auto) Eos # (Auto) Baso # (Auto) ABG pH ABG pCO2 ABG pO2 ABG HCO3 ABG Total CO2 ABG O2 Saturation ABG Base Excess FiO2 Sodium Potassium Chloride Carbon Dioxide BUN Creatinine Estimated GFR BUN/Creatinine Ratio Glucose Lactate Calcium Phosphorus Magnesium Total Creatine Kinase CK-MB (CK-2) CK-MB (CK-2) Rel Index Troponin I B-Natriuretic Peptide Albumin Vitamin B12 Folate Procalcitonin Nasal Screen MRSA (PCR) Positive for mrsa H Assessment & Plan Assessment & Plan narrative: The patient is a 68-year-old male with a history of chronic respiratory failure related to COPD and continuing to smoke and is admitted to the hospital for acute on chronic respiratory failure with community-acquired pneumonia requiring BiPAP and admission to the intensive care unit. 1. Acute community-acquired pneumonia, present on admission -patient with developing shortness of breath over several days with subjective fevers and weakness. -chest x-ray does not identify any infiltrates are the patient is significantly dehydrated. Patient has elevated white count at 19, lactic acid of 1.2, procalcitonin of less than 0.05. -patient received 1 L bolus in the emergency department, will further rehydrate the patient with normal saline at 100 mL/hr. -repeat chest x-ray in the morning. -patient received initial dose of ceftriaxone 1 g in the ER, patient will receive 1 g ceftriaxone now and then 2 g IV daily -patient received Zithromax and 500 mg IV in the ER will continue azithromycin 500 mg IV daily. -SOFA score is 5 2. Acute on chronic respiratory failure, COPD, present on admission -hypoxic hypercarbic respiratory failure presenting with room air saturation of 88% on nasal cannula 2 liters/minute. Initial ABG pH 7.14, pCO2 60.2, PO2 64, H CO3 38, base excess 14 on 0.28% oxygen. -long history of COPD on multiple bronchodilators including Dulera 2 puffs twice daily ipratropium albuterol 4 times daily and Spiriva Handy haler 1 cap daily and chronic home O2 2 L per minute. -O2 increased to 4 liters/minute without significant improvement. The patient started on BiPAP per respiratory therapy, target oxygen saturation is 88 to 92%. -RT to evaluate and treat, manage BiPAP for protocol, Atrovent nebulizer every 4 hours, Xopenex every 2 hours as needed. -patient received methylprednisolone 125 mg in the emergency department will continue 80 mg every 8 hours. -Mag level is 1.7, will give magnesium 2 g IV for smooth muscle bronchodilatory effect 3. Chronic severe protein calorie malnutrition, present on admission. -multifactorial including chronic hypoxemia from COPD, alcohol abuse, and adrenal insufficiency. -patient continues to have a declining BMI which is presently at 13.3. Albumin is 4.1. -will consult dietitian for evaluation and treatment. 4. Chronic essential hypertension, active -blood pressure appears well controlled on current medications, will continue diltiazem 100 mg twice daily doxazosin 4 mg daily and losartan 25 mg daily. 5. Chronic dyslipidemia, presumed stable -will continue home regimen of 20 mg nightly. 6. Chronic benign prostatic hypertrophy, presumed stable -patient is incontinent to urine, unable to obtain sample for urinalysis/culture, patient's are received antibiotics. -no evidence of urinary retention, will continue home regimen and doxazosin 4 mg daily. 7. Adrenal insufficiency, active -patient with no evidence of a new med Amikin stability or orthostasis. -patient does manifest decreasing BMI currently at 13.3 and darkening of skin -patient is currently on fludrocortisone 0.1 mg daily. -patient may benefit from an increased dose. 8. Chronic paroxysmal atrial fibrillation,, stable -patient currently in sinus tach sinus rhythm -will continue current regimen of diltiazem 180 mg twice daily. -patient not currently on anti coagulants likely secondary to liver cirrhosis, will continue aspirin 81 mg daily 9. Chronic depression, stable -will continue home medication of paroxetine 20 mg daily 10. Cardiomyopathy, nonischemic, stable -no evidence of pulmonary edema, BNP is less than 100. -the patient is dry dehydrated with BUN creatinine ratio 40:1, received 1 L bolus of normal saline IV in the ER, no basilar crackles. -will repeat chest x-ray in the morning, no record of echocardiogram available for review may consider obtaining echo. 11. Chronic alcohol dependence. active -history of alcohol abuse, states drinks beer when available. Unable to state last drink -patient has pronounced startle reflex, confusion and gross motor tremulousness likely related to current respiratory failure and treatment. -assessed CIWA every 4 hours, will hold on lorazepam to prevent respiratory depression at this time. -will evaluate folate and B12 levels. The patient is admitted to the intensive care unit related to acute on chronic respiratory failure requiring BiPAP for treatment of exacerbation COPD as well as community-acquired pneumonia. Patient requires ongoing close monitoring in the intensive care environment. The patient is admitted as inpatient with expected length stay to be greater than 2 midnights. Critical care time: 45 minutes involved in Eelu-ne-aoee time including evaluation and re-evaluation. Scores GCS [place] coma scale eye opening: To pressure [place] coma scale verbal response: Confused [place] coma scale motor response: Obey commands [place] coma scale total score: 12 SOFA PaO2/FIO2: < 220 mmHg Platelets: >= 150 Bilirubin: < 1.2 mg/dL Hypotension: MAP >= 70 mmHg [place] Coma Scale: 10-12 Renal: < 1.2 mg/dL SOFA Score: 5
--- NOTE | 2019-03-15 02:06 | DI.RAD.S_ITS ---
PROCEDURE: XR CHEST 1V INDICATIONS: pneumonia TECHNIQUE: One view of the chest was acquired. COMPARISON: [facility], CT, CT ANGIO CHEST PE PROTOCOL, 10/15/2018, 14:57. [facility], CR, XR CHEST 1V, 10/15/2018, 12:53. [facility], CR, XR CHEST 1V, 03/14/2019, 17:17. FINDINGS: Surgical changes and devices: None. Lungs and pleura: Lungs are clear. Lung volumes are increased with flattening of the hemidiaphragms suggesting COPD. chronic interstitial prominence redemonstrated. No pleural effusions or pneumothorax. Mediastinum: Mediastinal contours appear normal. Heart size is normal. Bones and chest wall: No suspicious bony lesions. Overlying soft tissues appear unremarkable. IMPRESSION: 1. Emphysematous change and chronic interstitial opacities redemonstrated. No acute cardiopulmonary disease. Dictated by: Servando Pires [facility] Interpreted: Todd Bridges MD on 03/15/2019 at 8:29 Approved by: Todd Bridges M.D. on 03/15/2019 at 10:02
[2019-03-15] MEDS: IPRATROPIUM 0.5 MG/2.5 ML NEB INH ×5 (02:26→20:44)
[2019-03-15 03:29] LABS: HCO3 ABG 33 mmol/L (22-26); PCO2 ABG 47.6 mmHg (35-45); PO2 ABG 63 mmHg (80-100); TCO2 ABG 34 mmol/L (21-31); pH ABG 7.45 (7.35-7.45)
[2019-03-15 03:30] LABS: Fractionated Inspired Oxygen 24; Oxygen Saturation ABG 92 % (95-100)
[2019-03-15 05:10] LABS: BUN Creatinine Ratio 46.7 (6-22); Blood Urea Nitrogen 14 mg/dL (9-20); Calcium 8.8 mg/dL (8.4-10.2); Carbon Dioxide 35 mmol/L (22-32); Chloride 102 mmol/L (98-107); Estimated Glomerular Filt Rate > 60.0 mL/min (>60); Glucose 164 mg/dL (80-110); HEMOLYSIS < 15 (0-50); Potassium 3.4 mmol/L (3.4-5.1); Sodium 144 mmol/L (137-145)
[2019-03-15 05:19] LABS: Add Manual Diff / Slide Review NO; Basophils Absolute Auto 0 /uL (0-100); Basophils Percent Auto 0.2 % (0-2); Eosinophils Absolute Auto 0 /uL (0-450); Hematocrit 35.1 % (41-53); Hemoglobin 11.6 g/dL (13.5-17.5); Lymphocytes Absolute Auto 1400 /uL (1100-4500); Lymphocytes Percent Auto 9.9 % (25-40); Mean Corpuscular HGB Conc 32.9 % (30-36); Mean Corpuscular Hemoglobin 30.7 PG (26-34); Mean Corpuscular Volume 93.3 fL (80-100); Monocytes Absolute Auto 200 /uL (0-900); Monocytes Percent Auto 1.3 % (3-14); Neutrophils Absolute Auto 12600 /uL (1500-7000); Neutrophils Percent Auto 88.6 % (50-75); Platelet Count 257 X10^3/uL (150-400); Red Blood Cell Count 3.76 X10^6/uL (4.5-5.9); Red Cell Distribution Width 15.7 % (11.6-14.8); White Blood Cell Count 14.3 X10^3/uL (4.5-11.0)
[2019-03-15 06:32] LABS: Procalcitonin < 0.05 ng/mL (<0.5)
[2019-03-15] MEDS: SODIUM CHLORIDE 0.9% 1,000 ML 100 ML IV (06:55)
[2019-03-15] MEDS: DOXAZOSIN 4 MG TABLET PO (08:12)
[2019-03-15] MEDS: dilTIAZem CD 180 MG CAP PO ×2 (08:13→20:34)
[2019-03-15] MEDS: FLUDROCORTISONE 0.1 MG TABLET PO (08:13)
[2019-03-15] MEDS: PARoxetine 20 MG TABLET PO (08:13)
[2019-03-15] MEDS: THIAMINE 100 MG TABLET PO (08:13)
[2019-03-15] MEDS: PANTOPRAZOLE 40 MG TABLET PO (08:14)
[2019-03-15] MEDS: guaiFENesin ER 600 MG TAB 1200 MG PO ×2 (08:14→20:35)
[2019-03-15] MEDS: DOCUSATE 100 MG CAPSULE PO ×2 (08:14→20:34)
[2019-03-15] MEDS: ASPIRIN EC 81 MG TABLET PO (08:15)
[2019-03-15] MEDS: HYDROMORPHONE 0.5 MG INJ IV (08:23)
[2019-03-15] MEDS: methylPREDNISolone 125 MG/2 ML VIAL 80 MG IV (08:29)
[2019-03-15] MEDS: LEVALBUTEROL 1.25 MG/0.5 ML NEB INH ×3 (09:06→20:44)
--- NOTE | 2019-03-15 09:28 | CM.DANOTE ---
Addendum entered by Meena Alonzo LPN 03/15/19 13:07: Note: CIWA: score as of 1100: 1 Addendum entered by Meena Alonzo LPN 03/15/19 13:03: Review of Collected Notes shows confirmation by WILTON Wakefield of the INPT admission status as of 03/14. Addendum entered by Meena Alonzo LPN 03/15/19 12:45: Pt is found lying in bed, o2 in place, eager to talk but does have to be redirected somewhat during the conversation and pt admits to being muddled at times. Pt is a 68 year male who admitted last night to care of hospitalist team. Payer: [facility]/Medicaid PCP: director radiation oncology team at the [facility]. Admission status: review in process: per WILTON Wakefield Discussion with pt and then with Admissions Liaison/Stephany/JAN: [phone] reveals that pt has been a resident of for about a year, having been a resident at a SNF/LTC facility in [place] and then discharged the the [facility]. He has a long history of alcoholism and does still smoke cigarettes. He has recently been granted a motorized w/c which he reports has let him get out and about more in the [facility]. He is hampered a bit in this by his oxygen needs and says he is working with the facililty on a more portable oxygen process. He says he only smokes away from the facility and not when oxygen in being used. Stephany says the staff understand the problems with this but this is an assisted facility and the mortorized chair adds to his quality of life so we are obligated to support him in his desire for more freedom. She does say that the facility fully expects to have pt return and that the patient is a great resident. The patient himself says he very much enjoys living there and in [place]. He had never been here before the transition from [place]. PT has a sister Danica who he is in touch with by phone. He says he thinks she lives in [place], he is not certain.. Pt does have a POLST: dated Aug 2018: DNR: Medical Interventions: Full treatment Discussed case in Team Rounds. Dr. Loaiza said she had not yet seen pt but that her understanding was that he may be using alcohol and that she would be watching for s/s of withdrawal. P: follow as POC unfolds. Likely d/c back to when stable. Expect that the ETHAN RN will need to assess this when closer to d/c. Original Note: Discharge Planning/Care Management Case received, EMR reviewed and including the admission to in Sep 2018. Met then with pt. Introduced self and role. Will pause now for Team Rounds and continue this note after the meeting. CM Discharge Assessment Start: 03/15/19 09:22 Freq: Status: Active Protocol: Document 03/15/19 09:22 ITV (Rec: 03/15/19 09:28 [email or web address] [id number]) Discharge Planning Assessment Advance Directives? Yes: POLST History Provided By Patient Medical Record Prior Living Arrangements Skilled Nurse Facility Facility Name Admitted From: [facility] Discharge Plan Assisted Living Facility Transportation Arrangement Facility Document 03/15/19 09:22 ITV (Rec: 03/15/19 09:28 [email or web address] [email or web address]) Discharge Planning Assessment Advance Directives? Yes: POLST: DNR: Full Medical Interventions Advance Directives on File sent over by [facility]/in Red Folder chart History Provided By Patient Medical Record Has Patient been admitted in last 30 No days? Comment last admission: Sep 2018 Prior Living Arrangements Assisted Living Type of transporation used prior to Relies on Others admit Facility Name Admitted From: [facility] Willing to Return to Facility? Yes Independent with ADL's No Is patient alert and oriented? alert. ? some cognitive deficits Needs Assistance With Bathing Eating Grooming Meal Prep Toileting Managing Medications Home Chores / Shopping Caregiver for Another No Community Services used prior to Oxygen Therapy admission: DME Already Rented / Owned Wheelchair Oxygen Comment recently given a motorized scooter. Goes out independly for with this in area near [facility] Comment likely return to [facility] when stable for same. Discharge Plan Assisted Living Facility Transportation Arrangement Facility Whiteboard Updated in Patient Room with Yes name and ext. # of Marketing Operations Intern Review Status In Process
[2019-03-15 10:11] LABS: Adenovirus Not Detected (Not Detect); Bordetella pertussis Not Detected (Not Detect); Chlamydophila pneumoniae Not Detected (Not Detect); Coronavirus 229E Not Detected (Not Detect); Coronavirus HKU1 Not Detected (Not Detect); Coronavirus NL 63 Not Detected (Not Detect); Coronavirus OC43 Not Detected (Not Detect); Human Metapneumovirus Not Detected (Not Detect); Human Rhinovirus/Enterovirus Not Detected (Not Detect); Influenza A Not Detected (Not Detect); Influenza B Not Detected (Not Detect); Mycoplasma pneumoniae Not Detected (Not Detect); Parainfluenza Virus 1 Not Detected (Not Detect); Parainfluenza Virus 2 Not Detected (Not Detect); Parainfluenza Virus 3 Not Detected (Not Detect); Parainfluenza Virus 4 Not Detected (Not Detect); Respiratory Syncytial Virus Not Detected (Not Detect)
--- NOTE | 2019-03-15 11:32 | DIET.PN ---
Dietary Progress Note Assessment: 68y M c nutrition consult for MNA score 3 (malnourished), Srinivas 13 (at risk) Obviously severely malnourished pt, propped up in bed, able to hold conversation, needs lid and straw for beverages d/t weak window shade cloth sewer. Meals provided by [facility], pt not hungry most of the time. 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 Poor dentation but pt makes due, likes hamburgers, whole milk, Ensure. Med Hx: SOB, HTN, COPD, etoh abuse cirrhosis HT: 177.8cm WT: 42.4kg BMI: 13.4 (LL) Pt is 56% of IBW Nutrition Diagnosis: Acute and Chronic severe PCM r/t altered metabolism of nutrients (etoh cirrhosis), diagnosis (COPD), and decreased appetite aeb <75% EER for over a month, BMI 13.4 (severe low), severe wasting of muscle and subcutaneous fat (orbital, temporal, clavicle, scapular, calf, interosseous). Interventions: Recc ONS Ensure Enlive and whole milk tid c all trays, high kcal/high fat indicated to reduce respiratory quotient r/t COPD complicated severe PCM providing 55% kcal and 100% PRO goals. Encouraged, small, frequent meals lower in carbs/higher in fat for COPD sob. Energy Goals: 1900kcal and 55g PRO Monitoring/Evaluations: PO tolerance, wt, associated labs, I&Os
--- NOTE | 2019-03-15 14:32 | P.PN_ITS ---
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 The patient is resting in bed. He appears chronically and severely ill. He is quite cachectic, has diffuse muscle wasting and is significantly malnourished with a BMI of 13. Discussed his end stage COPD, as well as, history alcoholic cirrhosis with continued use, declining functional status and BMI in detail. Recommended BiPAP for chronic hypoxemic and hypercarbic respiratory failure, smoking and alcohol cessation indefinitely. He is willing to try to wear BiPAP while napping or sleeping and as long as he can tolerate. Discussed and highly recommended hospice as his prognosis is grim. He endorses shortness of breath that has improved and is close to his baseline. He denies headache, chest pain, abdominal pain, nausea, vomiting, fever, chills, dysuria, diarrhea or constip ation. He is voiding and eliminating without difficulty. He is mostly bed rest due to respiratory status. Exam Vital Signs (past 8 hours): - 03/15/19 07:07 03/15/19 08:00 03/15/19 08:12 Temperature 97.9 F Pulse Rate 73 71 98 H Respiratory Rate 24 21 Blood Pressure 139/77 139/77 Pulse Oximetry 100 99 03/15/19 09:06 03/15/19 11:41 03/15/19 12:00 Temperature 98.4 F Pulse Rate 63 70 72 Respiratory Rate 18 20 20 Blood Pressure 161/64 H Pulse Oximetry 63 L 98 Fraction of Inspired Oxygen 24 Oxygen Delivery Method Nasal Cannula Oxygen Flow Rate 2 Narrative Exam Narrative: General: Middle-aged cachectic male lying in bed and in no acute distress, appears chronically and severely ill, appears older than stated age, appropriately interactive. HEENT: Normocephalic, atraumatic. External ears without defect. Pupils equal, round, and reactive to light. Anicteric sclerae, moist conjunctivae, and no lid lag. Poor dentition. Neck: Supple with full range of motion. No lymphadenopathy or thyromegaly. Cardiovascular: Regular rate and rhythm without murmurs, rubs, or gallops appreciated. Pulmonary: Diminished with coarse lung sounds throughout. Mild use of accessory muscles. Abdomen: Soft, scaphoid, bowel sounds present, nontender, nondistended. No hepatosplenomegaly or masses appreciated. Extremities: No clubbing, cyanosis, or edema. Diffuse muscle wasting. Skin: Normal temperature, turgor, and texture; no rash, ulcers, or subcutaneous nodules appreciated. Neurological: Cranial nerves grossly intact. Psychiatric: Normal mood and affect. Alert and oriented to person, place, and time. Mild confusion. Objective Labs Result Diagrams: 03/16/19 04:43 03/16/19 04:43 Labs: Laboratory Results - last 24 hr 03/14/19 03/14/19 03/14/19 16:20 16:23 16:23 WBC 19.1 H RBC 4.16 L Hgb 12.9 L Hct 39.0 L MCV 93.8 MCH 31.0 MCHC 33.0 RDW 15.5 H Plt Count 290 Neut % (Auto) 80.0 H Lymph % (Auto) 9.0 L Mcculloch % (Auto) 10.3 Eos % (Auto) 0.2 L Baso % (Auto) 0.5 Neut # (Auto) 03815 H Lymph # (Auto) 1700 Mcculloch # (Auto) 2000 H Eos # (Auto) 0 Baso # (Auto) 100 ABG pH ABG pCO2 ABG pO2 ABG HCO3 ABG Total CO2 ABG O2 Saturation ABG Base Excess FiO2 Sodium 148 H Potassium 3.6 Chloride 100 Carbon Dioxide 40 H* BUN 16 Creatinine 0.40 L Estimated GFR > 60.0 BUN/Creatinine Ratio 40.0 H Glucose 168 H Lactate Calcium 9.7 Phosphorus Magnesium 1.7 Ammonia Total Creatine Kinase 78 CK-MB (CK-2) TNP CK-MB (CK-2) Rel Index TNP Troponin I < 0.012 B-Natriuretic Peptide < 100 Albumin 4.1 Vitamin B12 Folate Procalcitonin Nasal Screen MRSA (PCR) Chlamy pneumoniae PCR Adenovirus (PCR) B.parapertussis DNA PCR Coronavirus OC43 (PCR) Coronavirus HKU1 (PCR) Coronavirus 229E (PCR) Coronavirus NL63 (PCR) Human Metapneumovir PCR Influenza Type A (PCR) Influenza Type B (PCR) M. pneumoniae (PCR) Parainfluenza 1 (PCR) Parainfluenza 2 (PCR) Parainfluenza 3 (PCR) Parainfluenza 4 (PCR) RSV (PCR) Entero/Rhino (PCR) 03/14/19 03/14/19 03/14/19 16:23 16:23 16:23 WBC RBC Hgb Hct MCV MCH MCHC RDW Plt Count Neut % (Auto) Lymph % (Auto) Mcculloch % (Auto) Eos % (Auto) Baso % (Auto) Neut # (Auto) Lymph # (Auto) Mcculloch # (Auto) Eos # (Auto) Baso # (Auto) ABG pH ABG pCO2 ABG pO2 ABG HCO3 ABG Total CO2 ABG O2 Saturation ABG Base Excess FiO2 Sodium Potassium Chloride Carbon Dioxide BUN Creatinine Estimated GFR BUN/Creatinine Ratio Glucose Lactate 1.2 Calcium Phosphorus 2.6 Magnesium Ammonia Total Creatine Kinase CK-MB (CK-2) CK-MB (CK-2) Rel Index Troponin I B-Natriuretic Peptide Albumin Vitamin B12 Folate Procalcitonin < 0.05 Nasal Screen MRSA (PCR) Chlamy pneumoniae PCR Adenovirus (PCR) B.parapertussis DNA PCR Coronavirus OC43 (PCR) Coronavirus HKU1 (PCR) Coronavirus 229E (PCR) Coronavirus NL63 (PCR) Human Metapneumovir PCR Influenza Type A (PCR) Influenza Type B (PCR) M. pneumoniae (PCR) Parainfluenza 1 (PCR) Parainfluenza 2 (PCR) Parainfluenza 3 (PCR) Parainfluenza 4 (PCR) RSV (PCR) Entero/Rhino (PCR) 03/14/19 03/14/19 03/14/19 16:23 16:44 17:49 WBC RBC Hgb Hct MCV MCH MCHC RDW Plt Count Neut % (Auto) Lymph % (Auto) Mcculloch % (Auto) Eos % (Auto) Baso % (Auto) Neut # (Auto) Lymph # (Auto) Mcculloch # (Auto) Eos # (Auto) Baso # (Auto) ABG pH 7.41 7.40 ABG pCO2 60.2 H 61.3 H* ABG pO2 64 L 68 L ABG HCO3 38 H 38 H ABG Total CO2 40 H 40 H ABG O2 Saturation 92 L 92 L ABG Base Excess 14.0 H 13.0 H FiO2 0.28 0.28 Sodium Potassium Chloride Carbon Dioxide BUN Creatinine Estimated GFR BUN/Creatinine Ratio Glucose Lactate Calcium Phosphorus Magnesium Ammonia Total Creatine Kinase CK-MB (CK-2) CK-MB (CK-2) Rel Index Troponin I B-Natriuretic Peptide Albumin Vitamin B12 515 Folate > 20.0 H Procalcitonin Nasal Screen MRSA (PCR) Chlamy pneumoniae PCR Adenovirus (PCR) B.parapertussis DNA PCR Coronavirus OC43 (PCR) Coronavirus HKU1 (PCR) Coronavirus 229E (PCR) Coronavirus NL63 (PCR) Human Metapneumovir PCR Influenza Type A (PCR) Influenza Type B (PCR) M. pneumoniae (PCR) Parainfluenza 1 (PCR) Parainfluenza 2 (PCR) Parainfluenza 3 (PCR) Parainfluenza 4 (PCR) RSV (PCR) Entero/Rhino (PCR) 03/14/19 03/15/19 03/15/19 20:00 02:46 04:45 WBC 14.3 H RBC 3.76 L Hgb 11.6 L Hct 35.1 L MCV 93.3 MCH 30.7 MCHC 32.9 RDW 15.7 H Plt Count 257 Neut % (Auto) 88.6 H Lymph % (Auto) 9.9 L Mcculloch % (Auto) 1.3 L Eos % (Auto) 0.0 L Baso % (Auto) 0.2 Neut # (Auto) 53755 H Lymph # (Auto) 1400 Mcculloch # (Auto) 200 Eos # (Auto) 0 Baso # (Auto) 0 ABG pH 7.45 ABG pCO2 47.6 H ABG pO2 63 L ABG HCO3 33 H ABG Total CO2 34 H ABG O2 Saturation 92 L ABG Base Excess 9.0 H FiO2 24 Sodium Potassium Chloride Carbon Dioxide BUN Creatinine Estimated GFR BUN/Creatinine Ratio Glucose Lactate Calcium Phosphorus Magnesium Ammonia Total Creatine Kinase CK-MB (CK-2) CK-MB (CK-2) Rel Index Troponin I B-Natriuretic Peptide Albumin Vitamin B12 Folate Procalcitonin Nasal Screen MRSA (PCR) Positive for mrsa H Chlamy pneumoniae PCR Adenovirus (PCR) B.parapertussis DNA PCR Coronavirus OC43 (PCR) Coronavirus HKU1 (PCR) Coronavirus 229E (PCR) Coronavirus NL63 (PCR) Human Metapneumovir PCR Influenza Type A (PCR) Influenza Type B (PCR) M. pneumoniae (PCR) Parainfluenza 1 (PCR) Parainfluenza 2 (PCR) Parainfluenza 3 (PCR) Parainfluenza 4 (PCR) RSV (PCR) Entero/Rhino (PCR) 03/15/19 03/15/19 03/15/19 04:45 04:45 04:45 WBC RBC Hgb Hct MCV MCH MCHC RDW Plt Count Neut % (Auto) Lymph % (Auto) Mcculloch % (Auto) Eos % (Auto) Baso % (Auto) Neut # (Auto) Lymph # (Auto) Mcculloch # (Auto) Eos # (Auto) Baso # (Auto) ABG pH ABG pCO2 ABG pO2 ABG HCO3 ABG Total CO2 ABG O2 Saturation ABG Base Excess FiO2 Sodium 144 Potassium 3.4 Chloride 102 Carbon Dioxide 35 H BUN 14 Creatinine 0.30 L Estimated GFR > 60.0 BUN/Creatinine Ratio 46.7 H Glucose 164 H Lactate Calcium 8.8 Phosphorus Magnesium 2.0 Ammonia 10.0 Total Creatine Kinase CK-MB (CK-2) CK-MB (CK-2) Rel Index Troponin I B-Natriuretic Peptide Albumin Vitamin B12 Folate Procalcitonin < 0.05 Nasal Screen MRSA (PCR) Chlamy pneumoniae PCR Adenovirus (PCR) B.parapertussis DNA PCR Coronavirus OC43 (PCR) Coronavirus HKU1 (PCR) Coronavirus 229E (PCR) Coronavirus NL63 (PCR) Human Metapneumovir PCR Influenza Type A (PCR) Influenza Type B (PCR) M. pneumoniae (PCR) Parainfluenza 1 (PCR) Parainfluenza 2 (PCR) Parainfluenza 3 (PCR) Parainfluenza 4 (PCR) RSV (PCR) Entero/Rhino (PCR) 03/15/19 08:30 WBC RBC Hgb Hct MCV MCH MCHC RDW Plt Count Neut % (Auto) Lymph % (Auto) Mcculloch % (Auto) Eos % (Auto) Baso % (Auto) Neut # (Auto) Lymph # (Auto) Mcculloch # (Auto) Eos # (Auto) Baso # (Auto) ABG pH ABG pCO2 ABG pO2 ABG HCO3 ABG Total CO2 ABG O2 Saturation ABG Base Excess FiO2 Sodium Potassium Chloride Carbon Dioxide BUN Creatinine Estimated GFR BUN/Creatinine Ratio Glucose Lactate Calcium Phosphorus Magnesium Ammonia Total Creatine Kinase CK-MB (CK-2) CK-MB (CK-2) Rel Index Troponin I B-Natriuretic Peptide Albumin Vitamin B12 Folate Procalcitonin Nasal Screen MRSA (PCR) Chlamy pneumoniae PCR Not detected Adenovirus (PCR) Not detected B.parapertussis DNA PCR Not detected Coronavirus OC43 (PCR) Not detected Coronavirus HKU1 (PCR) Not detected Coronavirus 229E (PCR) Not detected Coronavirus NL63 (PCR) Not detected Human Metapneumovir PCR Not detected Influenza Type A (PCR) Not detected Influenza Type B (PCR) Not detected M. 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 1. Acute bacterial community-acquired pneumonia, present on admission. Active. -Patient presented in acute respiratory distress after removing oxygen and smoking outside. He reports progressive worsening shortness of breath over several days with subjective fevers and weakness. -Chest x-ray did not demonstrate any acute cardiopulmonary process, however, patient is significantly dehydrated on presentation and pneumonia likely to flourish with rehydration. -WBC elevated at 19 (appears chronically elevated 17-19), lactic acid of 1.2, and procalcitonin < 0.05. Continue to monitor WBC and procalcitonin. -Ordered pneumonia workup including: Respiratory viral PCR negative. Sputum culture, pending. Blood culture x 2 has no growth to date. -Received 1 L NS bolus in ED. Continued IV fluids with normal saline at 100 mL/hr until adequately hydrated then discontinued as patient has very little lung reserve. -Received ceftriaxone 1 g IV x 1 and azithromycin 500 mg IV x1 in ED. Continue ceftriaxone 2 g IV daily and azithromycin 500 mg IV x 3 doses total. -Did not appear septic and qSOFA score 5 likely falsely elevated due to significant comorbidities. 2. Acute on chronic hypoxemic hypercarbic respiratory failure oxygen dependent, secondary to advanced end stage COPD now with acute exacerbation, present on admission. Active. -Patient presented in acute respiratory distress. Initial ABG appears compensated and demonstrated: PH 7.41, pCO2 60.2, PO2 64, H CO3 38, base excess 14 on 0.28% oxygen. -Consulted respiratory therapy for evaluation and treatment. Continue BiPAP as much as tolerated and at current settings when napping or sleeping. Continue supplemental oxygen with goal saturation 88-92%. Continue Dulera 2 puffs twice daily and Xopenex/Albuterol every 4 hours while awake. -Received methylprednisolone 125 mg IV x 1 in ED. Continued methylprednisolone 80 mg IV every 8 hours and decreased to 60 mg IV daily and will continue to taper as tolerated. -Initial magnesium 1.7. Received magnesium 2 g IV for smooth muscle bronchodilatory effect. -Ordered trilogy as patient requires nocturnal and daytime ventilation. Home BiPAP insufficient due to severity of COPD. COPD is primary cause of chronic respiratory failure with hypercarbia. 3. Chronic severe protein calorie malnutrition, present on admission. Active. -Multifactorial including: End-stage COPD and possible alcoholic cirrhosis, chronic hypoxemia, alcohol abuse, and adrenal insufficiency. -Patient continues to have a declining BMI which is presently at 13.3. Albumin is 4.1. -Consulted dietitian for evaluation and treatment and appreciate recommendations. -Highly recommended hospice and patient is open to consenting to start hospice as he had a good experience with his brother who recently passed and was on hospice. Arranged for hospice informational visit tomorrow. 4. Hypertension, chronic, present on admission. Stable. -Continue diltiazem 180 mg twice daily and losartan 25 mg daily. 5. Hyperlipidemia, chronic, present on admission. Stable. -Continue atorvastatin 20 mg daily at bedtime. 6. BPH, chronic, present on admission. Stable. -Patient is incontinent of urine. Unable to obtain sample for urinalysis/culture, patient's are received antibiotics. -No evidence of urinary retention. Continue doxazosin 4 mg daily. 7. Adrenal insufficiency, chronic, present on admission. Stable. -No evidence of a hemodynamic stability or orthostasis. Decreasing BMI currently at 13.3 and darkening of skin. -Continue fludrocortisone 0.1 mg daily. Oddly patient is not on glucocorticoid for adrenal insufficiency? Continue glucocorticoid as above. -patient may benefit from an increased dose. 8. Paroxysmal atrial fibrillation, chronic, present on admission. Stable. -Currently in sinus rhythm with normal HR. -Continue diltiazem 180 mg twice daily. -Not currently on anticoagulation likely secondary to liver cirrhosis, will continue aspirin 81 mg daily 9. Depression, chronic, present on admission. Stable. -Continue paroxetine 20 mg daily. 10. Non-ischemic cardiomyopathy, chronic, present on admission. Stable. -No evidence of pulmonary edema. BNP < 100. -Patient presented dry and dehydrated with BUN creatinine ratio 40:1, received 1 L bolus of normal saline IV in the ER, no basilar crackles. -Ordered echocardiogram, pending. 11. Alcohol dependence with previous diagnosis of alcoholic cirrhosis, chronic, present on admission. Stable. -Long-standing history of alcohol abuse. Patient reports he drinks 2 beers a day. Unclear last drink. Patient denies previous history of alcohol withdrawal, DTs, or seizure. -Patient has previous diagnosis of alcoholic cirrhosis however, platelets, INR, albumin are all within normal limits. -Patient had pronounced startle reflex, confusion and gross motor tremulousness on admission but likely related to current respiratory failure and treatment. -B12 and folate levels normal. -Continue to monitor for signs of withdraw. Discontinued CIWA protocol as no signs of withdraw currently. 12. MRSA colonization, chronic, present on admission. Stable. -MRSA PCR positive. May consider eradication if patient does not go onto hospice right away. Disposition: Patient likely to discharge to assisted living facility in the next several days likely on hospice.
[2019-03-15] MEDS: POTASSIUM CHLORIDE 40 MEQ in SODIUM CHLORIDE 0.9% 500 ML 130 ML IV (14:57)
--- NOTE | 2019-03-15 15:37 | PC.NURSE ---
am shift Pt is alert to self and place, and season, improved from overnight mentation. Lungs are very coarse, dim t/o. Tolerating NC @ 2.5L RR 20's. SOB with any activity. Enc rest, incont. of urine. Removes O2 during sleep. Chronic pain, recent falls. BA active. IV TKO. Bipap for sleep and plan for home trilogy. Moist, rattle to cough, weak effort. RT following Pt. Poor PO intake. ENC supplementation Pt is exploring Hospice options for end of life care, Dr Loaiza into see Pt. Updated on poor prognosis. [id number]
[2019-03-15] MEDS: MORPHINE ER 15 MG TABLET PO (17:06)
[2019-03-15] MEDS: AZITHROMYCIN 250 MG TABLET 500 MG PO (17:07)
--- NOTE | 2019-03-15 18:43 | PC.NURSE ---
Addendum entered by Louise Luna R.N. 03/15/19 21:12: 2030 - Pt inc of stool. Attempt rosalia-care. Pt unable to tolerate activity. Significantly SOB. RT to give breathing treatment. Following breathing treatment pt held Medical air, treatment appliance to mouth for duration of rosalia-care and linen change. Tolerated somewhat better. Ativan given. Able to take PO meds. Pt unable to tolerate side-lying r/t work of breathing. RT attempt to place Bi-pap, pt not receptive at this time. Used acapella with RT, productive cough, white sputum. 96% on 2L. Call light in reach. Addendum entered by Louise Luna R.N. 03/15/19 18:56: 1850 - Pt unable to tolerate bi-pap mask. Very anxious, pulled mask and tubing apart. Stating that's enough. discussed anxiety and rx available. Pt states oh good, but not right now. Replaced NC per pt request. Original Note: 1840 -Pt anxious with care, feeling SOB, requesting more air. Encourage pt to wear bi-pap mask, Pt had been dozing intermittently, and agreeable to try bi-pap. RT notified that bi-pap is in place. 96%, call light in reach. Monitor.
[2019-03-15] MEDS: MUPIROCIN 22 GM OINT 1 APPLIC TOP (20:33)
[2019-03-15] MEDS: CEFTRIAXONE 2 GM/50 ML FROZ.PIGGY IV (20:34)
[2019-03-15] MEDS: LORazepam 0.5 MG TABLET PO (20:34)
[2019-03-15] MEDS: ATORVASTATIN 20 MG TABLET PO (20:34)
[2019-03-16] VITALS (15 sets, daily range): BP systolic 126–151; BP diastolic 54–95; PULSE 59–83; RESP 18–28; TEMP 23.9–37.4; O2SAT 94–98
[2019-03-16] MEDS: LORazepam 0.5 MG TABLET PO ×2 (00:27→18:54)
[2019-03-16] MEDS: LEVALBUTEROL 1.25 MG/0.5 ML NEB INH ×6 (00:41→18:57)
[2019-03-16] MEDS: IPRATROPIUM 0.5 MG/2.5 ML NEB INH ×6 (00:42→22:05)
[2019-03-16] MEDS: MORPHINE ER 15 MG TABLET PO ×3 (02:30→18:43)
[2019-03-16 05:13] LABS: Add Manual Diff / Slide Review NO; Basophils Absolute Auto 0 /uL (0-100); Basophils Percent Auto 0.1 % (0-2); Eosinophils Absolute Auto 0 /uL (0-450); Hematocrit 32.3 % (41-53); Hemoglobin 10.8 g/dL (13.5-17.5); Lymphocytes Absolute Auto 1400 /uL (1100-4500); Lymphocytes Percent Auto 6.1 % (25-40); Mean Corpuscular HGB Conc 33.4 % (30-36); Mean Corpuscular Hemoglobin 30.9 PG (26-34); Mean Corpuscular Volume 92.5 fL (80-100); Monocytes Absolute Auto 1200 /uL (0-900); Monocytes Percent Auto 5.3 % (3-14); Neutrophils Absolute Auto 20500 /uL (1500-7000); Neutrophils Percent Auto 88.5 % (50-75); Platelet Count 248 X10^3/uL (150-400); Red Cell Distribution Width 15.9 % (11.6-14.8); White Blood Cell Count 23.2 X10^3/uL (4.5-11.0)
[2019-03-16 05:18] LABS: Alanine Aminotransferase 27 IU/L (21-72); Albumin 3.1 g/dL (3.5-5.0); Albumin Globulin Ratio 1.1 (1.0-2.8); Alkaline Phosphatase 71 U/L (38-126); Aspartate Aminotransferase 17 IU/L (17-59); Bilirubin Total 0.2 mg/dL (0.2-1.3); Blood Urea Nitrogen 12 mg/dL (9-20); Calcium 8.4 mg/dL (8.4-10.2); Carbon Dioxide 33 mmol/L (22-32); Chloride 105 mmol/L (98-107); Estimated Glomerular Filt Rate > 60.0 mL/min (>60); Globulin 2.8 g/dL (1.7-4.1); Glucose 150 mg/dL (80-110); HEMOLYSIS < 15 (0-50); Potassium 3.5 mmol/L (3.4-5.1); Sodium 144 mmol/L (137-145); Total Protein 5.9 g/dL (6.3-8.2)
[2019-03-16 06:26] LABS: Procalcitonin < 0.05 ng/mL (<0.5)
[2019-03-16] MEDS: PARoxetine 20 MG TABLET PO (08:13)
--- NOTE | 2019-03-16 08:13 | CM.DPC ---
Addendum entered by Meena Alonzo LPN 03/16/19 15:02: ANGELICA Matt's note re respiratory specifics is now faxed to [facility]. DME other than Bipap is will likely be delivered to tomorrow. Addendum entered by Meena Alonzo LPN 03/16/19 14:41: Case discussed in Team Rounds and then again today a few times with Dr. Loaiza. [facility] info visit was given by Rebeka/[facility] and pt did sign consents. Met with pt during this time, he was very alert and aware and did remember the conversation that he had with Dr. Loaiza last evening re his goals of care and recommendation of Hospice at the [facility]. [facility] Rebeka did update Dr. Loaiza re the hospice guidelines for respiratory DME. He is eligible for a Bi-Pap but not a Trilogy. He is currently using o2nc some of the time and BiPap as he can tolerate. Discussed case specifics with Rebeka and Dr. Loaiza. All agree that pt will not be stable enough for a transition to [facility] level care until [facility] can fully open him to service. Dr. Loaiza also says she expects pt to be here a few more days before he is stable enough for this transiton. POLST remains in process, Dr. Loaiza plans to do this with pt but Rebeka assures her that [facility] can also follow up on this if it is not completed at the hospital. [facility] is now working on getting all in place at the [facility] in prep for a d/c. She will call [employer]OC[employer] for specifics on pt's oxygen needs and especially BiPap specifics. Have confirmed with Stephany/admissions/[facility]: cell [phone] that she will be the customer contact representative for the needed hospice equipment. [facility] is updated re this via . ANGELICA Tomlinson/JAN will need to do a face/face assessment of pt before he returns but Stephany says since pt is coming back directly on Hospice this should not be a problem. Anticipate that pt will likely d/c to the [facility] via ambulance transport/BLS but DCPlanner to determine this nearer to d/c date. P: [facility]/with [facility] to open day of d/c: and as per above. DCP team will be following closely. Original Note: DCP: continued: spoke with Dr. Loaiza this morning. She requests a hospice info visit and discussed same with pt last night/her note is pending completion. Have left a message on the [facility] referral line and will be following. Noted the leidy/barrel lathe operator outside nursing notes with pt struggling with respirations. Plan: discuss update of POLST with Dr. Loaiza as pt's current POLST would not appear to be up to date with his current wishes. Update [facility]. Dr. Loaiza also indicates that she wishes a Trilogy to be set up before pt goes to the [facility]. She is currently pursuing this with RT. She is aware that his insurance is [facility] Med Adv/Medicaid. Will be checking in again with pt today.
[2019-03-16] MEDS: ASPIRIN EC 81 MG TABLET PO (08:14)
[2019-03-16] MEDS: AZITHROMYCIN 250 MG TABLET 500 MG PO (08:14)
[2019-03-16] MEDS: PANTOPRAZOLE 40 MG TABLET PO (08:14)
[2019-03-16] MEDS: FLUDROCORTISONE 0.1 MG TABLET PO (08:14)
[2019-03-16] MEDS: DOXAZOSIN 4 MG TABLET PO (08:15)
[2019-03-16] MEDS: MUPIROCIN 22 GM OINT 1 APPLIC TOP ×2 (08:15→20:34)
[2019-03-16] MEDS: guaiFENesin ER 600 MG TAB 1200 MG PO ×2 (08:17→20:34)
[2019-03-16] MEDS: THIAMINE 100 MG TABLET PO (08:18)
[2019-03-16] MEDS: methylPREDNISolone 125 MG/2 ML VIAL 60 MG IV (08:18)
[2019-03-16] MEDS: SODIUM CHLORIDE 0.9% FLUSH 10 ML IV ×2 (08:19→20:34)
--- NOTE | 2019-03-16 11:03 | OT.IP.EVAL ---
Current Diagnoses Acute and chronic respiratory failure, unspecified whether with hypoxia or hypercapnia (03/14/19) Past Medical History (Last Reviewed 03/15/19 @ 02:29 by JOAN Rivas) Alcohol abuse (Acute) Alcoholic cirrhosis of liver without ascites (Acute) Anemia (Acute) Atrial fibrillation (Acute) BPH (benign prostatic hyperplasia) (Acute) COPD (chronic obstructive pulmonary disease) (Acute) Cardiomyopathy (Acute) Chronic pain (Acute) Constipation (Acute) Depression (Acute) Femur fracture, right (Acute) Hyperlipidemia (Acute) Hypertension (Acute) Osteoarthritis (Acute) Peripheral vascular disease (Acute) Occupational Therapy Inpatient Evaluation/Re-Eval M1 PT/OT-IP Prior Functional Status Start: 03/16/19 10:47 Freq: NEEDED Status: Active Protocol: Document 03/16/19 10:49 [facility] (Rec: 03/16/19 11:03 [facility] [id number]) Medical Review Prior Functional Status Medical History Reviewed Yes Diet/Fluid Consistency Mechanical Soft Thin Liquids Communication Independent Mobility and Gait Pt states does not walk anymore and use of electric WC and staff assists him with all transfers stand pivot x 1 person. Activities of Daily Living and IADL's Pt states able to do grooming and eating after set-up while in bed, pt needing assist from staff for all dressing, toileting, and bathing needs. Social History Living Arrangements Skilled Nurse Facility M2 OT-IP Current Condition Start: 03/16/19 10:47 Freq: Status: Active Protocol: Document 03/16/19 10:49 [facility] (Rec: 03/16/19 11:03 [facility] [id number]) Occupational Therapy Current Condition Current Condition Evaluation Date 03/16/19 Treatment Diagnosis PNA, chronic respiratory failure Weight Bearing Status Weight Bearing Status Weight Bear as Tolerated M3 OT- IP Subjective and Pain Start: 03/16/19 10:47 Freq: Status: Active Protocol: Document 03/16/19 10:49 [facility] (Rec: 03/16/19 11:03 [facility] [id number]) OT- Subjective Occupational Therapy Visit Type Type Initial Evaluation Visit Start Time 10:05 Visit Stop Time 10:42 Total Visit Minutes 37 Occupational Therapy Visit Comments Patient Comments Pt agreeable to do OT/PT eval. Patient/Caregiver Goals To be able to go home. OT Pain Assessment Pain When Pain Assessed At Rest Pain Present Pain Present Denied Pain M4 OT- IP ADL's Start: 03/16/19 10:47 Freq: Status: Active Protocol: Document 03/16/19 10:49 [facility] (Rec: 03/16/19 11:03 [facility] [id number]) OT VYX-Eaif-Omyeeei General Evaluation Self-Feeding Ability Standby Assistance Areas Needing Assistance Opening Containers OT ADL-Grooming General Evaluation Grooming Ability Standby Assistance Areas Needing Assistance Retrieving/Set-up of Grooming Items OT ADL-Oral Care General Eval Oral Care Ability Independent OT ADL-Dressing General Eval Lower Body Dressing Ability Maximum Assistance Areas Needing Assistance Underpants/Brief Socks Comments OT Dressing Comments Pt MAX A for all LB dressing needs. OT ADL-Toileting General Evaluation Toileting Ability Maximum Assistance Areas Needing Assistance Manage Clothing Perform Perineal Hygiene Devices Toileting Assistive Devices Urinal Comments OT Toileting Comments Pt needing assist for hygiene and brief management and able to hold urinal in place while in bed. M6 OT- IP Functional Cognition Start: 03/16/19 10:47 Freq: Status: Active Protocol: Document 03/16/19 10:49 [facility] (Rec: 03/16/19 11:03 [facility] [id number]) Cognitive Factors Limiting Selfcare Function Cognitive Ability Level of Alertness Alert Patient Orientation Name Place Attention Span Ability Capable of Focused Attention Capable of Sustained Attention Ability to Follow Commands Able to Follow One Step Commands Memory Description No Deficits Noted Safety Awareness No Deficits Noted Cognitive Comments Cognitive Assessment Comments Pt appears at baseline level for cognition. When asked if pt would like to continue to work with therapy for exercises pt states, No I would rather focus on resting for now. OT- Vision and Hearing OT- Hearing Assessment OT- Hearing Assessment WFL OT- Vision Assessment Visual Acuity WFL Vision Assessment Comments Pt able to read the clock. M7 OT- IP Mobility and Balance Start: 03/16/19 10:47 Freq: Status: Active Protocol: Document 03/16/19 10:49 [facility] (Rec: 03/16/19 11:03 [facility] [id number]) OT- Bed Mobility Assessment Rolling Level of Assistance Standby Assistance Supine to Sit Supine to Sit Assist Standby Assistance Sit to Supine Sit to Supine Assist Standby Assistance Scooting Scooting to Edge of Bed Standby Assistance OT-Transfer Assessment Sit to and From Stand Sit to and from Stand Minimal Assistance Moderate Assistance Transfers Transfer Ability Moderate Assistance Technique Transfer Destination Bed Chair Devices Transfer Assistive Devices None Gait Belt Comments Mobility Comments Stand pivot transfer with gait belt. ROGELIO to MODA depending on surface height transferring to and from. OT- Balance Assessment Sitting Balance and Reactions Static Sitting Balance Ability Normal Dynamic Sitting Balance Ability Fair M8 OT- IP Objective Assessments Start: 03/16/19 10:47 Freq: Status: Active Protocol: Document 03/16/19 10:49 [facility] (Rec: 03/16/19 11:03 [facility] [id number]) OT Gross Range of Motion Upper Extremity Range of Motion Assessment Within Functional Limits OT Strength Upper Extremity Strength Assessment Within Functional Limits M9 OT- IP Assessment and Plan Start: 03/16/19 10:47 Freq: Status: Active Protocol: Document 03/16/19 10:49 [facility] (Rec: 03/16/19 11:03 [facility] [id number]) OT Summary Assessment and Plan Potential Rehabilitation Potential Fair Analytic Complexity at Evaluation Low Summary Assessment Summary Pt low complexity and looking into Hospice at this time and does not want to continue with any therapy at this time. Pt appears to be at baseline for OT needs. Nursing able to assist pt for all needs, discharge pt from OT services. Frequency of Treatment Frequency Of Treatment Discharge Discharge Recommendations Other Discharge Recommendations Please see case management notes.
--- NOTE | 2019-03-16 11:09 | PT.IIE ---
Current Diagnoses Acute and chronic respiratory failure, unspecified whether with hypoxia or hypercapnia (03/14/19) Medical History (Last Reviewed 03/15/19 @ 02:29 by JOAN Rivas) Alcohol abuse (Acute) Alcoholic cirrhosis of liver without ascites (Acute) Anemia (Acute) Atrial fibrillation (Acute) BPH (benign prostatic hyperplasia) (Acute) COPD (chronic obstructive pulmonary disease) (Acute) Cardiomyopathy (Acute) Chronic pain (Acute) Constipation (Acute) Depression (Acute) Femur fracture, right (Acute) Hyperlipidemia (Acute) Hypertension (Acute) Osteoarthritis (Acute) Peripheral vascular disease (Acute) Physical Therapy Inpatient Evaluation/Re-Eval M1 PT/OT-IP Prior Functional Status Start: 03/16/19 10:38 Freq: NEEDED Status: Active Protocol: Document 03/16/19 10:53 [facility] (Rec: 03/16/19 11:09 [facility] [id number]) Medical Review Prior Functional Status Medical History Reviewed Yes Communication Dec memory Mobility and Gait Pt reports transfers w/1-2 person assist at NURSING HOME; pt uses motorized chair to get around Activities of Daily Living and IADL's Requires assistance for ADLs Social History Living Arrangements Assisted Living Number of Floors (Floors) One Floor M1 PT/OT-IP Prior Functional Status Start: 03/16/19 10:47 Freq: NEEDED Status: Active Protocol: Document 03/16/19 10:49 [facility] (Rec: 03/16/19 11:03 [facility] [id number]) Medical Review Prior Functional Status Medical History Reviewed Yes Diet/Fluid Consistency Mechanical Soft Thin Liquids Communication Independent Mobility and Gait Pt staets does not walk anymore and use of electric WC and staff assists him with all transfers stand pivot x 1 person. Activities of Daily Living and IADL's Pt states able to do grooming and eating after set-up while in bed, Pt needing assist from staff for all dressing, toileting, and bathing needs. Social History Living Arrangements Skilled Nurse Facility M2 PT-IP Current Condition Start: 03/16/19 10:38 Freq: NEEDED Status: Active Protocol: Document 03/16/19 10:53 [facility] (Rec: 03/16/19 11:09 [facility] [id number]) Physical Therapy Current Condition Current Condition Evaluation Date 03/16/19 Treatment Diagnosis respiratory failure; weakness M3 PT-IP Subjective Start: 03/16/19 10:38 Freq: NEEDED Status: Active Protocol: Document 03/16/19 10:53 [facility] (Rec: 03/16/19 11:09 [facility] [id number]) Subjective Physical Therapy Visit Type Type Initial Evaluation Visit Start Time 10:05 Visit Stop Time 10:25 Total Visit Minutes 20 Number of SHAFT REPAIRER Visits 0 Therapy Pain Assessment Pain Present Pain Present Pain Reported Location Left Foot Pain Behaviors Facial Grimacing Wincing Pain Management Techniques Re-positioning M4 PT-IP Mobility and Gait Start: 03/16/19 10:38 Freq: NEEDED Status: Active Protocol: Document 03/16/19 10:53 [facility] (Rec: 03/16/19 11:09 [facility] [id number]) PT-Transfer Assessment Transfers Transfer Technique Squat Pivot Transfer Ability Level of Assist Moderate Assistance Comments Mobility Comments Transfered to bed from chair and back to chair with cueing for UE placement and scooting towards transfer destination PT-Balance Assessment Sitting Balance and Reactions Static Sitting Balance Ability Fair Dynamic Sitting Balance Ability Fair Standing Balance and Reactions Static Standing Balance Ability Poor Dynamic Standing Balance Ability Poor M5 PT-IP Objective Assessments Start: 03/16/19 10:38 Freq: NEEDED Status: Active Protocol: Document 03/16/19 10:53 [facility] (Rec: 03/16/19 11:09 [facility] [id number]) Orientation Orientation/Cognition Level of Alertness Lethargic Gross Range of Motion Lower Extremity ROM Assessment Bilaterally Impaired Impairments 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 and feet stay in PF positioning Strength Lower Extremity Strength Assessment Bilaterally Impaired M6 PT-IP Treatment Start: 03/16/19 10:38 Freq: NEEDED Status: Active Protocol: Document 03/16/19 10:53 [facility] (Rec: 03/16/19 11:09 [facility] [id number]) Physical Therapy Treatment Education Education Provided Safety M7 PT-IP Assessment and Plan Start: 03/16/19 10:38 Freq: NEEDED Status: Active Protocol: Document 03/16/19 10:53 [facility] (Rec: 03/16/19 11:09 [facility] [id number]) PT Summary Assessment and Plan Summary Assessment Summary Pt presents with overall weakness, PF contractures, dec ability to transfer and do functional mobility but is at his baseline for assistance. HE has hospice consult later today and and does not want to cont with PT. D/t all these factors, pt is d/c from PT and can cont to transfer with nursing. Frequency of Treatment Frequency Of Treatment Discharge Recommendations To Nursing Amount of Assist Needed 1 Person Assist Discharge Recommendations Other Discharge Recommendations Return to NURSING HOME with nursing assist
--- NOTE | 2019-03-16 11:51 | DI.ECHO.S_ITS ---
Echocardiogram Report + + :Name: AGA MONK Study Date: 03/16/2019 Height: 70 in : :Hospital Exam Location: [facility] Weight: 93 lb : : Gender: Male BSA: 1.5 m2 : :: 1950 Age: 68 yrs BP: 126/54 mmHg: :Reason For Study: Worsening dyspnea : :Ordering Physician: [place] : :Hospitalist Performed By: Alyssa Page : :Referring: ABILIO DILL : + + Interpretation Summary The study quality was technically difficult. The left ventricle is grossing normal in size and thickness. The ejection fraction is estimated to be 60-65%. There are no obvious focal wall motion abnormalities noted but poor endocardial definition reduces the sensitivity for the detection of such. Diastolic parameters suggest probable normal left ventricular diastolic function and normal filling pressures. The right ventricle is grossly normal size. The right ventricular systolic function is normal. Pulmonary artery pressures cannot be estimated because of the lack of a measurable TR jet velocity. The left atrium grossly appears normal in size. The right atrium is mildly dilated. There is no significant valvular heart disease. The aortic root is not well visualized but is probably normal size. There is a trivial pericardial effusion noted. The IVC is dilated (diameter is greater than 2.1 cm) and it collapses less than 50% with a sniff. This suggests a high right atrial pressure of 15 mm Hg. Procedure: A two-dimensional transthoracic echocardiogram with color flow and Doppler was performed. The study quality was technically difficult. The parasternal views were not obtained due to body habitus. The suprasternal views were not obtained due to body habitus. Most of the acoustic windows were suboptimal, but the best imaging was obtained from the subcostal window. The patient was in normal sinus rhythm during the exam. Left Ventricle: The left ventricle is grossing normal in size and thickness. The ejection fraction is estimated to be 60-65%. There are no obvious focal wall motion abnormalities noted but poor endocardial definition reduces the sensitivity for the detection of such. Diastolic parameters suggest probable normal left ventricular diastolic function and normal filling pressures. Right Ventricle: The right ventricle is grossly normal size. The right ventricular systolic function is normal. Atria: The left atrium grossly appears normal in size. The right atrium is mildly dilated. There is no Doppler evidence for an interatrial shunt. Mitral Valve: The mitral valve is grossly normal. There is no mitral regurgitation noted. Aortic Valve: The aortic valve is trileaflet. The aortic valve opens well. No aortic regurgitation is present. Tricuspid Valve: The tricuspid valve is normal in structure and function. There is trace tricuspid regurgitation. Pulmonary artery pressures cannot be estimated because of the lack of a measurable TR jet velocity. Pulmonic Valve: The pulmonic valve is not well seen, but is grossly normal. There is no pulmonic valvular regurgitation. There is no significant valvular heart disease. Great Vessels: The aortic root is not well visualized but is probably normal size. The ascending aorta could not be visualized. The pulmonary artery is normal size. The IVC is dilated (diameter is greater than 2.1 cm) and it collapses less than 50% with a sniff. This suggests a high right atrial pressure of 15 mm Hg. Pericardium/ Pleura There is a trivial pericardial effusion noted. There has been no significant change since the previous study. MMode/2D Measurements & Calculations LA A2 area: 18.5 cm2 RA long axis: 4.1 cm LA A4 area: 14.1 cm2 RA area: 16.3 cm2 LA length (vol): 4.5 cm RA vol: 55.7 ml LA vol: 48.7 ml RA : 36.9 ml/m2 LA vol index: 32.3 ml/m2 IVC diam: 2.4 cm RVD1 (basal): 4.1 cm Doppler Measurements & Calculations Ao V2 max: 134.7 cm/sec LVOT Max Elliott: 129.1 cm/sec Ao V2 mean: 88.2 cm/sec LV V1 max P.7 mmHg Ao max P.3 mmHg LV V1 VTI: 25.0 cm Ao mean P.5 mmHg sev ratio: 1.1 Ao V2 VTI: 23.5 cm MV E max elliott: 75.2 cm/sec PA V2 max: 114.4 cm/sec MV A max elliott: 76.8 cm/sec PA V2 mean: 76.3 cm/sec MV E/A: 0.98 PA mean P.6 mmHg Med Peak E' Elliott: 4.2 cm/sec PA Accel Time: 0.11 sec E/E' med: 17.8 Lat Peak E' Elliott: 7.5 cm/sec E/E' lat: 10.0 E/e' average: 13.9 MV P1/2t: 62.7 msec MV P1/2t max elliott: 75.2 cm/sec MVA(P1/2t): 3.5 cm2 _ Reading Physician:01:10 PM
--- NOTE | 2019-03-16 14:42 | PC.NURSE ---
Pt has been drowsy but oriented x2-3 (unsure of month/day) and answering questions with delayed but appropriate speech. 1PA mod assist to pivot/transfer to chair. Pt has poor activity tolerance and c/o shortness of breath with min exertion. RR 18-24 at rest and 25-35 with activity. While awake, pt maintains o2 sat 94-96% on 2L NC. Pt slept for 2 hours this afternoon on bipap 24% fio2 /. Pt had hospice info visit this afternoon. Discharge plan pending acceptance.
--- NOTE | 2019-03-16 15:50 | PM.PN.1 ---
Subjective Date Patient Seen: 03/16/19 Interval history: Giovanni Clayton is a 68-year-old male with a past medical history significant for hypertension, hyperlipidemia, paroxysmal atrial fibrillation, nonischemic cardiomyopathy, adrenal insufficiency, end-stage COPD with chronic hypoxemic and hypercarbic respiratory failure oxygen dependent, alcohol and tobacco dependence who presented in acute respiratory failure. The patient is resting in bed and appears comfortable. He is quite somnolent and mildly difficult to keep aroused. He continues to endorse shortness of breath that is mildly improved. He reports pain in low abdomen and back. He met with hospice this morning and has consented to open with them after his hospitalization. Discussed his code status in detail including the unlikelihood that with his significant comorbidities he would be able to be resuscitated and is likely futile. Patient understands and has changed his code status to DNR/DNI and updated POLST. He denies headache, chest pain, nausea, vomiting, fever, chills, dysuria, diarrhea or constipation. He is voiding and eliminating without difficulty. He is mostly bed rest due to respiratory status. Exam Vital Signs (past 8 hours): - 03/16/19 08:15 03/16/19 08:21 03/16/19 10:41 Temperature 97.7 F Pulse Rate 63 59 L 66 Respiratory Rate 24 24 26 H Blood Pressure 147/68 H Pulse Oximetry 95 98 97 03/16/19 11:15 03/16/19 15:12 Temperature 96.4 F L Pulse Rate 64 60 Respiratory Rate 24 21 Blood Pressure 126/54 L Pulse Oximetry 96 97 Fraction of Inspired Oxygen 0.24 Oxygen Delivery Method Nasal Cannula Oxygen Flow Rate 2 Narrative Exam Narrative: General: Middle-aged cachectic male lying in bed and in no acute distress, appears chronically and severely ill, appears older than stated age, somnolent and not easily arousable but appropriately interactive when awake. HEENT: Normocephalic, atraumatic. External ears without defect. Pupils equal, round, and reactive to light. Anicteric sclerae, moist conjunctivae, and no lid lag. Poor dentition. Neck: Supple with full range of motion. No lymphadenopathy or thyromegaly. Cardiovascular: Regular rate and rhythm without murmurs, rubs, or gallops appreciated. Pulmonary: Diminished with coarse lung sounds throughout. Mild use of accessory muscles. Abdomen: Soft, scaphoid, bowel sounds present, nontender, nondistended. No hepatosplenomegaly or masses appreciated. Extremities: No clubbing, cyanosis, or edema. Diffuse muscle wasting. Skin: Normal temperature, turgor, and texture; no rash, ulcers, or subcutaneous nodules appreciated. Neurological: Cranial nerves grossly intact. Psychiatric: Normal mood and affect. Somnolent and not easily arousable but appropriately interactive while awake. Continues to have intermittent confusion/mild cognitive impairment with memory recall deficit likely due to longstanding alcohol use and hypoxemia. Objective Labs Result Diagrams: 03/16/19 04:43 03/16/19 04:43 Labs: Laboratory Results - last 24 hr 03/16/19 03/16/19 03/16/19 04:43 04:43 04:43 WBC 23.2 H D RBC 3.50 L Hgb 10.8 L Hct 32.3 L MCV 92.5 MCH 30.9 MCHC 33.4 RDW 15.9 H Plt Count 248 Neut % (Auto) 88.5 H Lymph % (Auto) 6.1 L Collin % (Auto) 5.3 Eos % (Auto) 0.0 L Baso % (Auto) 0.1 Neut # (Auto) 32340 H Lymph # (Auto) 1400 Collin # (Auto) 1200 H Eos # (Auto) 0 Baso # (Auto) 0 Sodium 144 Potassium 3.5 Chloride 105 Carbon Dioxide 33 H BUN 12 Creatinine 0.30 L Estimated GFR > 60.0 BUN/Creatinine Ratio 40.0 H Glucose 150 H Calcium 8.4 Total Bilirubin 0.2 AST 17 ALT 27 Alkaline Phosphatase 71 Total Protein 5.9 L Albumin 3.1 L Globulin 2.8 Albumin/Globulin Ratio 1.1 Procalcitonin < 0.05 Assessment & Plan Assessment & Plan narrative: Giovanni Clayton is a 68-year-old male with a past medical history significant for hypertension, hyperlipidemia, paroxysmal atrial fibrillation, nonischemic cardiomyopathy, adrenal insufficiency, end-stage COPD with chronic hypoxemic and hypercarbic respiratory failure oxygen dependent, alcohol and tobacco dependence who presented in acute respiratory failure. 1. Acute bacterial community-acquired pneumonia, present on admission. Active. -Patient presented in acute respiratory distress after removing oxygen and smoking outside. He reports progressive worsening shortness of breath over several days with subjective fevers and weakness. -Chest x-ray did not demonstrate any acute cardiopulmonary process, however, patient is significantly dehydrated on presentation and pneumonia likely to flourish with rehydration. -WBC elevated at 19 (appears chronically elevated 17-19), lactic acid of 1.2, and procalcitonin < 0.05. Continue to monitor WBC and procalcitonin. WBC decreased and now elevated likely due to glucocorticoids. -Ordered pneumonia workup including: Respiratory viral PCR negative. Sputum culture preliminarily growing gram-negative bacilli with heavy growth. Blood culture x 2 has no growth to date. -Received 1 L NS bolus in ED. Continued IV fluids with normal saline at 100 mL/hr until adequately hydrated then discontinued as patient has very little lung reserve. -Received ceftriaxone 1 g IV x 1 and azithromycin 500 mg IV x1 in ED. Continue ceftriaxone 2 g IV daily and azithromycin 500 mg IV x 3 doses total. -Did not appear septic and qSOFA score 5 likely falsely elevated due to significant comorbidities. 2. Acute on chronic hypoxemic hypercarbic respiratory failure oxygen dependent, secondary to advanced end stage COPD now with acute exacerbation, present on admission. Active. -Patient presented in acute respiratory distress. Initial ABG appears compensated and demonstrated: PH 7.41, pCO2 60.2, PO2 64, H CO3 38, base excess 14 on 0.28% oxygen. -Consulted respiratory therapy for evaluation and treatment. Continue BiPAP as much as tolerated and at current settings when napping or sleeping. Continue supplemental oxygen with goal saturation 88-92%. Continue Dulera 2 puffs twice daily and Xopenex/Albuterol every 4 hours while awake. Continue Mucinex 1200 mg twice daily. Continue PEP. -Received methylprednisolone 125 mg IV x 1 in ED. Continued methylprednisolone now decreased to 60 mg IV daily and will plan to start prednisone 40 mg daily tomorrow. -Initial magnesium 1.7. Received magnesium 2 g IV for smooth muscle bronchodilatory effect. -Ordered trilogy as patient requires nocturnal and daytime ventilation. Home BiPAP insufficient due to severity of COPD. COPD is primary cause of chronic respiratory failure with hypercarbia. 3. Chronic severe protein calorie malnutrition, present on admission. Active. -Multifactorial including: End-stage COPD and possible alcoholic cirrhosis, chronic hypoxemia, alcohol abuse, and adrenal insufficiency. -Patient continues to have a declining BMI which is presently at 13.3. Albumin is 4.1. -Consulted dietitian for evaluation and treatment and appreciate recommendations. -Highly recommended hospice and patient has consented to start hospice once pneumonia has been treated and he returns to assisted living facility. Updated code status and POLST. 4. Hypertension, chronic, present on admission. Stable. -Continue diltiazem 180 mg twice daily and losartan 25 mg daily. 5. Hyperlipidemia, chronic, present on admission. Stable. -Continue atorvastatin 20 mg daily at bedtime. 6. BPH, chronic, present on admission. Stable. -Patient is incontinent of urine. Unable to obtain sample for urinalysis/culture prior to initiation of antibiotics. -No evidence of urinary retention. Continue doxazosin 4 mg daily. 7. Adrenal insufficiency, chronic, present on admission. Stable. -No evidence of a hemodynamic stability or orthostasis. Decreasing BMI currently at 13.3 and darkening of skin. -Continue fludrocortisone 0.1 mg daily. Oddly patient is not on glucocorticoid for adrenal insufficiency? Continue glucocorticoid as above. 8. Paroxysmal atrial fibrillation, chronic, present on admission. Stable. -Currently in sinus rhythm with normal HR. -Continue diltiazem 180 mg twice daily. -Not currently on anticoagulation likely secondary to history of liver cirrhosis. Continue aspirin 81 mg daily. 9. Depression, chronic, present on admission. Stable. -Continue paroxetine 20 mg daily. 10. Non-ischemic cardiomyopathy, chronic, present on admission. Stable. -No evidence of pulmonary edema. BNP < 100. -Patient presented dry and dehydrated with BUN creatinine ratio 40:1, received 1 L bolus of normal saline IV in ED and continued gentle IV fluids until adequately hydrated. -Echocardiogram did not demonstrate significant findings other than dilated IVC with elevated right atrial pressure of 15 mmHg indicative of pulmonary hypertension due to extensive lung disease. 11. Alcohol dependence with previous diagnosis of alcoholic cirrhosis, chronic, present on admission. Stable. -Long-standing history of alcohol abuse. Patient reports he drinks 2 beers a day. Unclear last drink. Patient denies previous history of alcohol withdrawal, DTs, or seizure. -Patient has previous diagnosis of alcoholic cirrhosis, however, platelets, INR, albumin are all within normal limits on admission so not severe if present. -Patient had pronounced startle reflex, confusion and gross motor tremulousness on admission but likely related to current respiratory failure and treatment. -B12 and folate levels normal. -Continue to monitor for signs of withdraw. Discontinued CIWA protocol as no signs of withdraw currently. 12. MRSA colonization, chronic, present on admission. Stable. -MRSA PCR positive. May consider eradication if patient does not go onto hospice right away. 13. Chronic pain with narcotic dependence, chronic, present on admission. Stable. -Continue morphine ER 15 mg every 6 hours as needed for pain. May continue to titrate up as needed and with hospice. Disposition: Patient likely to discharge to assisted living facility in the 1-2 days on hospice.
--- NOTE | 2019-03-16 18:58 | PC.NURSE ---
Addendum entered by Louise Luna R.N. 03/16/19 23:03: 2300 - Pt pulling of bi-pap mask. It's starting to hurt my face. Replaced NC. Bi-pap had been in place for approximately 3 hours with only short breaks for PO intake. RT notified. Original Note: 1839 - Pt sitting up eating meal. C/O pain to legs and back. Requesting pain rx, discussed repositioning. Pt requests breathing treatment and little white pill prior to activity. Ativan given. RT called from breathing treatment. Pt educated to skin integrity. Pt reports inability to reposition until mediation is effective. about an hour. Encouraged small movements to relieve discomfort. Monitor.
[2019-03-16] MEDS: CEFTRIAXONE 2 GM/50 ML FROZ.PIGGY IV (19:37)
[2019-03-16] MEDS: ATORVASTATIN 20 MG TABLET PO (20:34)
[2019-03-16] MEDS: dilTIAZem CD 180 MG CAP PO (20:34)
[2019-03-17] VITALS (15 sets, daily range): BP systolic 120–158; BP diastolic 59–77; PULSE 58–80; RESP 18–29; TEMP 36.2–36.8; O2SAT 94–98
[2019-03-17] MEDS: LEVALBUTEROL 1.25 MG/0.5 ML NEB INH ×6 (00:05→20:37)
[2019-03-17] MEDS: IPRATROPIUM 0.5 MG/2.5 ML NEB INH ×6 (02:22→20:37)
--- NOTE | 2019-03-17 05:32 | PC.NURSE ---
pt tried to be compliant with bipap - was on approx 1 hour [id number] then declined to be placed back on it overnoc- his spo2 mid -high 90's on 2l nc- declined any pain or anti-anxiety rx and has slept fairly well- using urinal and refusing to turn off bottom and/or get cleaned up
[2019-03-17 05:37] LABS: Magnesium 1.6 mg/dL (1.6-2.3)
[2019-03-17] MEDS: guaiFENesin ER 600 MG TAB 1200 MG PO ×2 (09:00→20:29)
[2019-03-17] MEDS: MUPIROCIN 22 GM OINT 1 APPLIC TOP ×2 (09:00→20:29)
[2019-03-17] MEDS: PARoxetine 20 MG TABLET PO (09:01)
[2019-03-17] MEDS: ASPIRIN EC 81 MG TABLET PO (09:01)
[2019-03-17] MEDS: THIAMINE 100 MG TABLET PO (09:01)
[2019-03-17] MEDS: dilTIAZem CD 180 MG CAP PO ×2 (09:01→20:30)
[2019-03-17] MEDS: DOXAZOSIN 4 MG TABLET PO (09:01)
[2019-03-17] MEDS: FLUDROCORTISONE 0.1 MG TABLET PO (09:02)
[2019-03-17] MEDS: PANTOPRAZOLE 40 MG TABLET PO (09:02)
[2019-03-17] MEDS: MORPHINE ER 15 MG TABLET PO ×2 (09:04→19:03)
[2019-03-17] MEDS: predniSONE 20 MG TABLET 40 MG PO (09:04)
[2019-03-17] MEDS: SODIUM CHLORIDE 0.9% FLUSH 10 ML IV ×2 (09:05→20:30)
--- NOTE | 2019-03-17 10:12 | P.DS_ITS ---
History of Present Illness Date Patient Seen: 03/14/19 Chief complaint: sob Narrative: Written by Maxwell FRANCO: Mr Jonatan Clayton is a 68-year-old male history significant for COPD, atrial f ibrillation, cardiomyopathy, hypertension, alcoholic cirrhosis, and anemia presents to the ER with acute shortness of breath. The patient is a resident at [facility] who has been on chronic home O2 at 2 liters/minute has been complaining of increasing shortness of breath and per facility staff manifesting mental status changes. The patient reported associated symptoms of fever and fatigue. Today he had left the facility going outside to smoke and upon return had worsening symptoms prompting evaluation in the emergency department. The patient is minimally responsive and unable to provide additional historical information and limited subjective data. Upon arrival in the ER the patient was afebrile with a temperature of 98.6?, heart rate of 84, blood pressure 142/74, respirations 19 saturating 86 %. Oxygen was increased with minimal improvement in his presentation. Patient was started on BiPAP ventilation. Chest x-ray finds no acute cardiopulmonary fi ndings the patient is dry presenting with a BUN creatinine ratio of 40. ABGs drawn finding a pH of 7.41, pCO2 of 60.2, PO2 of 64, HC03 of 38 and a base excess of 14 on 0.28% oxygen. The patient has white cell count of 19, hemoglobin of 12.9 and hematocrit 39 with platelets of 290. His electrolytes within normal limits has a BUN of 16 and creatinine 0.04. His nonfasting glucose is 168. His lactic acid is 1.2 and has a procalcitonin of less than 0.05. His BNP is less than 100 and has troponin that is negative. His magnesium is 1.7. In the ER the patient is started on ceftriaxone 1 g and katalina thromycin 500 mg both IV. He received methylprednisolone 125 mg IV and he receives DuoNeb so and respirations supported by BiPAP. The patient is admitted to the ICU due to acute on chronic respiratory failure requiring ventilatory support. Discharge Providers Date of admission: 03/14/19 18:01 Discharge Date: 03/17/19 Consults: 03/14/19 16:17 Consult to Respiratory Therapy Evaluate & Treat Comment: Physician Instructions: Evaluate and treat 03/14/19 20:11 Consult to Dietitian, Adult Routine Comment: Reason For Exam: Protein malnutrition Consult to Discharge Planning Routine Comment: 03/14/19 20:13 Consult to Respiratory Therapy Evaluate & Treat Comment: Acute respiratory therapy, COPD exacerbation Physician Instructions: Evaluate and treat 03/14/19 22:37 Consult to Dietitian, Adult Routine Comment: Reason For Exam: severe malnourishment 03/16/19 08:50 Consult to Physical Therapy Evaluate & Treat Comment: Physician Instructions: Evaluate and Treat 03/16/19 08:51 Consult to Occupational Therapy Evaluate & Treat Comment: Physician Instructions: Evaluate and treat Discharge provider: Jenny Loaiza DO Summary Discharge Diagnosis: 1. Acute community-acquired bacterial pneumonia not present. Ruled out. 2. Acute on chronic hypoxemic hypercarbic respiratory failure, oxygen dependent, secondary to advanced end stage COPD, now with acute exacerbation, present on admission. Acute exacerbation resolved. 3. Chronic severe protein calorie malnutrition, present on admission. Active. 4. Hypertension, chronic, present on admission. Stable. 5. Hyperlipidemia, chronic, present on admission. Stable. 6. BPH, chronic, present on admission. Stable. 7. Adrenal insufficiency, chronic, present on admission. Stable. 8. Paroxysmal atrial fibrillation, chronic, present on admission. Stable. 9. Depression, chronic, present on admission. Stable. 10. Non-ischemic cardiomyopathy, chronic, present on admission. Stable. 11. Alcohol dependence with previous diagnosis of alcoholic cirrhosis, chronic, present on admission. Stable. 12. MRSA colonization, chronic, present on admission. Stable. 13. Chronic pain with narcotic dependence, chronic, present on admission. Stable. Hospital Course: Giovanni Clayton is a 68-year-old male with a past medical history significant for hypertension, hyperlipidemia, paroxysmal atrial fibrillation, nonischemic cardiomyopathy, adrenal insufficiency, end-stage COPD with chronic hypoxemic and hypercarbic respiratory failure oxygen dependent, alcohol and tobacco dependence who presented in acute respiratory failure. 1. Acute community-acquired bacterial pneumonia not present. Ruled out. -Initially patient thought to have acute community-acquired bacterial pneumonia, however, patient has had no fever or infectious markers other than chronically elevated WBC (likely due to steroids), no demonstration of infiltrate on chest x-ray and sputum growing corynebacterium straitum which is not a pathogenic organism and more likely underwriting service representative of colonization due to repeated antibiotic exposure and advanced COPD. -Patient presented in acute respiratory distress after removing oxygen and smoking outside. He reports progressive worsening shortness of breath over several days with subjective fevers and weakness. -Patient did not appear septic on initial presentation and qSOFA score 5 likely falsely elevated due to significant comorbidities/advanced COPD. -Chest x-ray did not demonstrate any acute cardiopulmonary process, however, patient is significantly dehydrated on presentation and pneumonia likely to flourish with rehydration. Repeat chest x-ray did not demonstrate pneumonia. -WBC elevated at 19 (appears chronically elevated 17-19), lactic acid of 1.2, and procalcitonin < 0.05. Transient rise in WBC from baseline secondary to glucocorticoids. -Ordered pneumonia workup including: Respiratory viral PCR negative. Sputum cu lture had heavy growth of Corynebacterium striatum which is not a pathogenic organism and underwriting service representative of colonization. Blood culture x 2 has no growth to date. -Received 1 L NS bolus in ED. Continued IV fluids with normal saline at 100 mL/hr until adequately hydrated then discontinued as patient has very little lung reserve. -Received ceftriaxone 1 g IV x 1 and azithromycin 500 mg IV x1 in ED. Received azithromycin 500 mg IV x 3 doses total. Discontinued ceftriaxone for which he has received several doses as patient does not have pneumonia. 2. Acute on chronic hypoxemic hypercarbic respiratory failure, oxygen dependent, secondary to advanced end stage COPD, now with acute exacerbation, present on admission. Acute exacerbation resolved. -Patient presented in acute respiratory distress. Initial ABG appears compensated and demonstrated: PH 7.41, pCO2 60.2, PO2 64, H CO3 38, base excess 14 on 0.28% oxygen. -Consulted respiratory therapy for evaluation and treatment. Continued BiPAP as much as tolerated and at current settings when napping or sleeping. Continued supplemental oxygen with goal saturation 88-92%. Continued Dulera 2 puffs twice daily and Xopenex/Albuterol every 4 hours while awake. Continued Mucinex 1200 mg twice daily. Continue PEP. -Received methylprednisolone 125 mg IV x 1 in ED. Continued methylprednisolone amd short taper down on prednisone and now on prednisone 20 mg daily to continue indefinitely for palliation and to optimize breathing. -Initial magnesium 1.7. Received magnesium 2 g IV for smooth muscle bronchodilatory effect. -Ordered noninvasive positive-pressure ventilation as patient requires nocturnal and daytime ventilation. Home BiPAP insufficient due to severity of COPD. COPD is primary cause of chronic respiratory failure with hypercarbia. -Continued comfort care with morphine 15 mg every 6 hours as needed for severe pain/air hunger and Ativan 0.5 mg every 4 hours for anxiety/air hunger. 3. Chronic severe protein calorie malnutrition, present on admission. Active. -Multifactorial including: End-stage COPD, possible alcoholic cirrhosis, chronic hypoxemia, alcohol abuse, and adrenal insufficiency. -Patient continues to have a declining BMI 13.3. Albumin is 4.1. -Consulted dietitian for evaluation and treatment and appreciated recommendations. -Highly recommended hospice and patient has consented to start hospice which will open today at 11. Updated code status and POLST. 4. Hypertension, chronic, present on admission. Stable. -Continued diltiazem 180 mg twice daily and losartan 25 mg daily. 5. Hyperlipidemia, chronic, present on admission. Stable. -Continued atorvastatin 20 mg daily at bedtime. 6. BPH, chronic, present on admission. Stable. -Patient is incontinent of urine. Unable to obtain sample for urinalysis/culture prior to initiation of antibiotics. -No evidence of urinary retention. Continued doxazosin 4 mg daily. 7. Adrenal insufficiency, chronic, present on admission. Stable. -No evidence of a hemodynamic instability or orthostasis. Decreasing BMI currently at 13.3 and darkening of skin. -Continued fludrocortisone 0.1 mg daily. Oddly patient is not on glucocorticoid for adrenal insufficiency? Continue glucocorticoid as above. 8. Paroxysmal atrial fibrillation, chronic, present on admission. Stable. -Currently in sinus rhythm with normal HR. -Continued diltiazem 180 mg twice daily. -Not currently on anticoagulation likely secondary to history of liver cirrhosis. Continued aspirin 81 mg daily. 9. Depression, chronic, present on admission. Stable. -Continued paroxetine 20 mg daily. 10. Non-ischemic cardiomyopathy, chronic, present on admission. Stable. -No evidence of pulmonary edema. BNP < 100. -Patient presented dry and dehydrated with BUN creatinine ratio 40:1, received 1 L bolus of normal saline IV in ED and continued gentle IV fluids until adequately hydrated. -Echocardiogram did not demonstrate significant findings other than dilated IVC with elevated right atrial pressure of 15 mmHg indicative of pulmonary hypertension due to extensive lung disease. 11. Alcohol dependence with previous diagnosis of alcoholic cirrhosis, chronic, present on admission. Stable. -Long-standing history of alcohol abuse. Patient reports he drinks 2 beers a day. Unclear last drink. Patient denies previous history of alcohol withdrawal, DTs, or seizure. -Patient has previous diagnosed with alcoholic cirrhosis, however, platelets, INR, albumin are all within normal limits on admission so if present not severe or extensive. -Patient had pronounced startle reflex, confusion and gross motor tremulousness on admission related to current respiratory failure and treatment. -B12 and folate levels normal. -Continued to monitor for signs of withdraw. Discontinued CIWA protocol as no active signs of alcohol withdrawal. 12. MRSA colonization, chronic, present on admission. Stable. -MRSA PCR positive. Considered eradication, however, patient is comfort care only and going on to hospice tomorrow. 13. Chronic pain with narcotic dependence, chronic, present on admission. Stable. -Continued morphine ER 15 mg every 6 hours as needed for pain. May continue to titrate up as needed and with hospice. Exam Vital Signs (past 8 hours): - 03/17/19 02:24 03/17/19 04:00 03/17/19 04:17 Pulse Rate 64 Respiratory Rate 24 Blood Pressure Pulse Oximetry 96 98 98 03/17/19 06:10 03/17/19 07:59 03/17/19 08:42 Pulse Rate 73 77 Respiratory Rate 22 19 Blood Pressure 120/59 L Pulse Oximetry 96 97 97 Fraction of Inspired Oxygen 24 Oxygen Delivery Method Nasal Cannula Oxygen Flow Rate 2 Narrative Exam Narrative: General: Middle-aged cachectic male lying in bed and in no acute distress, appears chronically ill, appears significantly older than stated age, more awake and alert today, appropriately interactive. HEENT: Normocephalic, atraumatic. External ears without defect. Pupils equal, round, and reactive to light. Anicteric sclerae, moist conjunctivae, and no lid lag. Poor dentition. Neck: Supple with full range of motion. No lymphadenopathy or thyromegaly. Cardiovascular: Regular rate and rhythm without murmurs, rubs, or gallops appreciated. Pulmonary: Diminished with coarse lung sounds throughout. Mild use of accessory muscles. Abdomen: Soft, scaphoid, bowel sounds present, nontender, nondistended. No hepatosplenomegaly or masses appreciated. Extremities: No cyanosis or edema. Diffuse muscle wasting of entire body. Clubbing of fingers bilaterally. Skin: Normal temperature, turgor, and texture; no rash, ulcers, or subcutaneous nodules appreciated. Neurological: Cranial nerves grossly intact. Psychiatric: Normal mood and affect. Somnolent and not easily arousable but appropriately interactive while awake. Continues to have intermittent conf usion/mild cognitive impairment with memory recall deficit likely due to longstanding alcohol use and hypoxemia. Objective Labs Result Diagrams: 03/18/19 05:00 03/18/19 05:00 Labs: Laboratory Results - last 24 hr 03/17/19 04:55 Magnesium 1.6 Discharge Plan Discharge Plan Patient Disposition: Hospice - Home Discharge comment: You're being discharged home to [facility] with hospice. You are being provided a BiPAP machine to use as long as possible while sleeping or napping so that you are more awake during the day and don't go into a coma. Your pain and anxiety medications may be titrated as needed by hospice team to comfort. Discharge Med Rec/Prescriptions Prescriptions: New prednisone 20 mg Tablet 20 mg PO DAILY Qty: 30 RF: 0 docusate sodium [DOK] 100 mg Capsule 100 mg PO BID Qty: 60 RF: 0 mupirocin 2 % Ointment 1 applic topical BID Qty: 8 RF: 0 guaifenesin [Mucus Relief ER] 600 mg Tablet Extended Release 12hr 1,200 mg PO BID Qty: 30 RF: 0 Continued atorvastatin 20 mg Tablet 20 mg PO BEDTIME RF: 0 aspirin 81 mg Tablet,Delayed Release (Dr/Ec) 81 mg PO DAILY RF: 0 paroxetine HCl [Paxil] 20 mg Tablet 20 mg PO DAILY RF: 0 pantoprazole 40 mg Tablet,Delayed Release (Dr/Ec) 40 mg PO DAILY RF: 0 losartan 25 mg Tablet 25 mg PO DAILY RF: 0 doxazosin 4 mg Tablet 4 mg PO DAILY RF: 0 fludrocortisone 0.1 mg Tablet 0.1 mg PO DAILY RF: 0 Spiriva with HandiHaler 18 mcg Capsule, W/Inhalation Device 1 cap INHALATION DAILY RF: 0 cholecalciferol (vitamin D3) [Vitamin D3] 2,000 unit Tablet 2,000 unit PO DAILY RF: 0 acetaminophen 325 mg Tablet 650 mg PO Q4H PRN (Reason: Pain, Moderate) RF: 0 diltiazem HCl 180 mg Capsule,Extended Release 24hr 180 mg PO BID RF: 0 magnesium hydroxide [Milk of Magnesia] 400 mg/5 mL Suspension 30 ml PO PRN PRN (Reason: Constipation) RF: 0 bisacodyl 10 mg Suppository 10 mg MA PRN PRN (Reason: Constipation) RF: 0 albuterol sulfate 90 mcg/actuation Hfa Aerosol Inhaler 2 puff INHALATION Q4H PRN (Reason: Wheezing) RF: 0 Dulera 100-5 mcg/actuation Hfa Aerosol Inhaler 2 puff INHALATION BID RF: 0 ipratropium-albuterol 0.5 mg-3 mg(2.5 mg base)/3 mL Solution For Nebulization 3 ml INHALATION QID Qty: 1 RF: 0 multivitamin with minerals Tablet 1 tab PO DAILY RF: 0 lorazepam 0.5 mg tablet 0.5 mg PO Q4H PRN (Reason: Anxiety) Qty: 20 RF: 0 morphine 15 mg Tablet Extended Release 15 mg PO Q8H Qty: 20 RF: 0 Provider Discharge Instructions Diet: Diet as Tolerated Diet comment: Diet as tolerated and for comfort Activity: Activity as tolerated Oxygen: 2L and BiPAP while sleeping Discharge Data Attending Provider: Jenny Loaiza Admit Date/Time: 03/14/19 18:01 Discharges patient from system. Discharge Date/Time: 03/18/19 14:18
[2019-03-17] MEDS: LORazepam 0.5 MG TABLET PO ×2 (10:59→20:33)
--- NOTE | 2019-03-17 11:49 | CM.DPC ---
Addendum entered by Camille Crump R.N. 03/17/19 14:10: Confirmed, since it is getting later in the day, and no insurance auth for trilogy, will have patient discharge tomorrow. Called Mirlande at [facility] and gave him update. Updated Allyn at [facility], and they confirmed that they will pick patient up by 1:15. Have spoken to Navya, and she confirmed that BIPAP will be delivered at 11:00, and she will call if any changes. Hospice will open between 2:00-3:00, and she is aware of merchandise pickup/receiving associate time here. Plan is for discharge to [facility] with hospice. Addendum entered by Camille Crump R.N. 03/17/19 13:48: Spoke to rep Mirlande at [facility]. Phone number: [phone]. He stated that the trilogy needs insurance authorization, in which his office is attempting to obtain. As of now, there is not yet authorization. He stated that he would update this correctional counselor/case manager at approximately 3:00, but not sure if its going to happen today. He is aware that patient will be going on hospice tomorrow. Will await response, have updated ICU nurse on status. Addendum entered by Camille Crump R.N. 03/17/19 12:48: Confirmed with Navya from hospice that patient's BIPAP will be delivered by 11:00 tomorrow, and open with nurse between 2:00-3:00. Original Note: DCP Cont: Have discharge orders on patient, but this will be dependent upon assessment from [facility] nurse, who be here at approximately 12:30. [facility]ed [facility] , they are planning on opening patient tomorrow between 2:00-3:00, and BIPAP will be delivered tomorrow. Line care was here today. Patient will need to be on [facility] at facility until BIPAP is delivered. Contacted Amanuel in respiratory therapy, he does not have a time of delivery, but will contact this correctional counselor/case manager when he has number of [facility]. P: DCP to continue to follow. Have updated Dr. Loaiza on situation, and will see what nurse states when she comes to see patient. Will need to ensure that trilogy is in house before he is discharged. Navya at hospice is updated that patient could be discharged today. Plan is still for open at facility tomorrow. Camille Crump RN/Manager Behavior
--- NOTE | 2019-03-17 14:08 | P.PN_ITS ---
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 The patient is resting in bedside chair comfortably. He is more awake and alert today. He wore the BiPAP for at least 2 hours overnight. He is mildly claustrophobic but understands the necessity for the BiPAP and the repercussions if he does not wear the BiPAP. He continues wear BiPAP as long as possible and tolerated while sleeping. He reports improvement in his shortness of breath and he feels as though his chest is loosening up. He has no other complaints and denies headache, chest pain, nausea, vomiting, fever, chills, dysuria, diarrhea or constipation. He has chronic abdominal pain relieved with narcotics. He is voiding and eliminating without difficulty. He is mostly bed-bound with transfers due to respiratory status. Exam Vital Signs (past 8 hours): - 03/17/19 06:10 03/17/19 07:59 03/17/19 08:42 Pulse Rate 73 77 Respiratory Rate 22 19 Blood Pressure 120/59 L Pulse Oximetry 96 97 97 03/17/19 11:00 03/17/19 11:15 Pulse Rate 69 65 Respiratory Rate 24 18 Blood Pressure 132/73 Pulse Oximetry 98 96 Fraction of Inspired Oxygen 24 Oxygen Delivery Method Nasal Cannula Oxygen Flow Rate 2 Narrative Exam Narrative: General: Middle-aged cachectic male lying in bed and in no acute distress, appears chronically ill, appears significantly older than stated age, more awake and alert today, appropriately interactive. HEENT: Normocephalic, atraumatic. External ears without defect. Pupils equal, round, and reactive to light. Anicteric sclerae, moist conjunctivae, and no lid lag. Poor dentition. Neck: Supple with full range of motion. No lymphadenopathy or thyromegaly. Cardiovascular: Regular rate and rhythm without murmurs, rubs, or gallops appreciated. Pulmonary: Diminished with coarse lung sounds throughout. Mild use of accessory muscles. Abdomen: Soft, scaphoid, bowel sounds present, nontender, nondistended. No hepatosplenomegaly or masses appreciated. Extremities: No cyanosis or edema. Diffuse muscle wasting. Clubbing of fingers bilaterally. Skin: Normal temperature, turgor, and texture; no rash, ulcers, or subcutaneous nodules appreciated. Neurological: Cranial nerves grossly intact. Psychiatric: Normal mood and affect. Somnolent and not easily arousable but appropriately interactive while awake. Continues to have intermittent confusion/mild cognitive impairment with memory recall deficit likely due to longstanding alcohol use and hypoxemia. Objective Labs Result Diagrams: 03/16/19 04:43 03/16/19 04:43 Labs: Laboratory Results - last 24 hr 03/17/19 04:55 Magnesium 1.6 Assessment & Plan Assessment & Plan narrative: Giovanni Clayton is a 68-year-old male with a past medical history significant for hypertension, hyperlipidemia, paroxysmal atrial fibrillation, nonischemic cardiomyopathy, adrenal insufficiency, end-stage COPD with chronic hypoxemic and hypercarbic respiratory failure oxygen dependent, alcohol and tobacco dependence who presented in acute respiratory failure. 1. Acute community-acquired bacterial pneumonia not present. -Initially patient thought to have acute community-acquired bacterial pneumonia, however, patient has had no fever or infectious markers other than chronically elevated WBC (likely due to steroids), no demonstration of infiltrate on chest x-ray and sputum growing corynebacterium straitum which is not a pathogenic or ganism and more likely technical support representative of colonization due to repeated antibiotic exposure and advanced COPD. -Patient presented in acute respiratory distress after removing oxygen and smoking outside. He reports progressive worsening shortness of breath over several days with subjective fevers and weakness. -Patient did not appear septic on initial presentation and qSOFA score 5 likely falsely elevated due to significant comorbidities/advanced COPD. -Chest x-ray did not demonstrate any acute cardiopulmonary process, however, patient is significantly dehydrated on presentation and pneumonia likely to flourish with rehydration. Repeat chest x-ray did not demonstrate pneumonia. -WBC elevated at 19 (appears chronically elevated 17-19), lactic acid of 1.2, and procalcitonin < 0.05. Transient rise in WBC from baseline secondary to glucocorticoids. -Ordered pneumonia workup including: Respiratory viral PCR negative. Sputum culture had heavy growth of Corynebacterium striatum which is not a pathogenic organism and technical support representative of colonization. Blood culture x 2 has no growth to date. -Received 1 L NS bolus in ED. Continued IV fluids with normal saline at 100 mL/hr until adequately hydrated then discontinued as patient has very little lung reserve. -Received ceftriaxone 1 g IV x 1 and azithromycin 500 mg IV x1 in ED. Received azithromycin 500 mg IV x 3 doses total. Discontinued ceftriaxone for which he has received several doses as patient does not have pneumonia. 2. Acute on chronic hypoxemic hypercarbic respiratory failure, oxygen dependent, secondary to advanced end stage COPD, now with acute exacerbation, present on admission. Acute exacerbation resolving. -Patient presented in acute respiratory distress. Initial ABG appears compensated and demonstrated: PH 7.41, pCO2 60.2, PO2 64, H CO3 38, base excess 14 on 0.28% oxygen. -Consulted respiratory therapy for evaluation and treatment. Continue BiPAP as much as tolerated and at current settings when napping or sleeping. Continue supplemental oxygen with goal saturation 88-92%. Continue Dulera 2 puffs twice daily and Xopenex/Albuterol every 4 hours while awake. Continue Mucinex 1200 mg twice daily. Continue PEP. -Received methylprednisolone 125 mg IV x 1 in ED. Continued methylprednisolone now titrated to prednisone 40 mg daily[address] Plan to place patient on short taper to lowest possible dose for palliation to optimize breathing. -Initial magnesium 1.7. Received magnesium 2 g IV for smooth muscle bronchodilatory effect. -Ordered noninvasive positive-pressure ventilation as patient requires nocturnal and daytime ventilation. Home BiPAP insufficient due to severity of COPD. COPD is primary cause of chronic respiratory failure with hypercarbia. -Continue comfort care with morphine 15 mg every 6 hours as needed for severe pain/air hunger and Ativan 0.5 mg every 4 hours for anxiety/air hunger. 3. Chronic severe protein calorie malnutrition, present on admission. Active. -Multifactorial including: End-stage COPD, possible alcoholic cirrhosis, chronic hypoxemia, alcohol abuse, and adrenal insufficiency. -Patient continues to have a declining BMI 13.3. Albumin is 4.1. -Consulted dietitian for evaluation and treatment and appreciate recommendations. -Highly recommended hospice and patient has consented to start hospice. Updated code status and POLST. 4. Hypertension, chronic, present on admission. Stable. -Continue diltiazem 180 mg twice daily and losartan 25 mg daily. 5. Hyperlipidemia, chronic, present on admission. Stable. -Continue atorvastatin 20 mg daily at bedtime. 6. BPH, chronic, present on admission. Stable. -Patient is incontinent of urine. Unable to obtain sample for urinalysis/culture prior to initiation of antibiotics. -No evidence of urinary retention. Continue doxazosin 4 mg daily. 7. Adrenal insufficiency, chronic, present on admission. Stable. -No evidence of a hemodynamic instability or orthostasis. Decreasing BMI currently at 13.3 and darkening of skin. -Continue fludrocortisone 0.1 mg daily. Oddly patient is not on glucocorticoid for adrenal insufficiency? Continue glucocorticoid as above. 8. Paroxysmal atrial fibrillation, chronic, present on admission. Stable. -Currently in sinus rhythm with normal HR. -Continue diltiazem 180 mg twice daily. -Not currently on anticoagulation likely secondary to history of liver cirrhosis. Continue aspirin 81 mg daily. 9. Depression, chronic, present on admission. Stable. -Continue paroxetine 20 mg daily. 10. Non-ischemic cardiomyopathy, chronic, present on admission. Stable. -No evidence of pulmonary edema. BNP < 100. -Patient presented dry and dehydrated with BUN creatinine ratio 40:1, received 1 L bolus of normal saline IV in ED and continued gentle IV fluids until adequately hydrated. -Echocardiogram did not demonstrate significant findings other than dilated IVC with elevated right atrial pressure of 15 mmHg indicative of pulmonary hypertension due to extensive lung disease. 11. Alcohol dependence with previous diagnosis of alcoholic cirrhosis, chronic, present on admission. Stable. -Long-standing history of alcohol abuse. Patient reports he drinks 2 beers a day. Unclear last drink. Patient denies previous history of alcohol withdrawal, DTs, or seizure. -Patient has previous diagnosed with alcoholic cirrhosis, however, platelets, INR, albumin are all within normal limits on admission so not severe if present. -Patient had pronounced startle reflex, confusion and gross motor tremulousness on admission related to current respiratory failure and treatment. -B12 and folate levels normal. -Continue to monitor for signs of withdraw. Discontinued CIWA protocol as no active signs of alcohol withdrawal. 12. MRSA colonization, chronic, present on admission. Stable. -MRSA PCR positive. Considered eradication, however, patient is comfort care only and going on to hospice tomorrow. 13. Chronic pain with narcotic dependence, chronic, present on admission. S table. -Continue morphine ER 15 mg every 6 hours as needed for pain. May continue to titrate up as needed and with hospice. Disposition: Patient likely to discharge to [facility] on hospice tomorrow.
[2019-03-17] MEDS: ATORVASTATIN 20 MG TABLET PO (20:30)
--- NOTE | 2019-03-17 21:06 | PC.NURSE ---
2030 - Pt inc of urine. Discussed plan of care and skin integrity. Pt reluctant to reposition r/t work of breathing. Educated to slow activity and rest periods. Ativan given per pt request. Declines side lying. Barrier cream to buttock/coccyx wound. Snack provided. Call light in reach.
[2019-03-18] MEDS: LEVALBUTEROL 1.25 MG/0.5 ML NEB INH ×4 (00:07→12:46)
[2019-03-18] MEDS: IPRATROPIUM 0.5 MG/2.5 ML NEB INH ×4 (00:07→12:46)
[2019-03-18 00:10] VITALS: PULSE 65; RESP 18; O2SAT 97
[2019-03-18] MEDS: LORazepam 0.5 MG TABLET PO ×3 (00:52→13:31)
[2019-03-18 03:36] VITALS: BP 148/73; PULSE 68; RESP 24; TEMP 36.9; O2SAT 96
[2019-03-18] MEDS: MORPHINE ER 15 MG TABLET PO ×2 (03:36→09:51)
[2019-03-18 04:56] VITALS: PULSE 67; RESP 16; O2SAT 95
[2019-03-18 05:28] LABS: Add Manual Diff / Slide Review NO; Basophils Absolute Auto 0 /uL (0-100); Basophils Percent Auto 0.1 % (0-2); Eosinophils Absolute Auto 0 /uL (0-450); Hematocrit 34.4 % (41-53); Hemoglobin 11.4 g/dL (13.5-17.5); Lymphocytes Absolute Auto 2200 /uL (1100-4500); Lymphocytes Percent Auto 15.7 % (25-40); Mean Corpuscular HGB Conc 33.1 % (30-36); Mean Corpuscular Hemoglobin 30.6 PG (26-34); Mean Corpuscular Volume 92.5 fL (80-100); Monocytes Absolute Auto 1300 /uL (0-900); Monocytes Percent Auto 9.3 % (3-14); Neutrophils Absolute Auto 10300 /uL (1500-7000); Neutrophils Percent Auto 74.9 % (50-75); Platelet Count 264 X10^3/uL (150-400); Red Blood Cell Count 3.72 X10^6/uL (4.5-5.9); Red Cell Distribution Width 15.8 % (11.6-14.8); White Blood Cell Count 13.7 X10^3/uL (4.5-11.0)
[2019-03-18 05:36] LABS: BUN Creatinine Ratio 43.3 (6-22); Blood Urea Nitrogen 13 mg/dL (9-20); Calcium 8.7 mg/dL (8.4-10.2); Carbon Dioxide 35 mmol/L (22-32); Chloride 97 mmol/L (98-107); Estimated Glomerular Filt Rate > 60.0 mL/min (>60); Glucose 133 mg/dL (80-110); HEMOLYSIS < 15 (0-50); Magnesium 1.4 mg/dL (1.6-2.3); Potassium 3.3 mmol/L (3.4-5.1); Sodium 137 mmol/L (137-145)
[2019-03-18] MEDS: POTASSIUM CHLORIDE 40 MEQ in SODIUM CHLORIDE 0.9% 500 ML 130 ML IV (06:18)
[2019-03-18] MEDS: MAGNESIUM SULFATE 2 GM/50 ML PIGGYBACK IV (06:18)
--- NOTE | 2019-03-18 06:39 | PC.NURSE ---
Senior Accounting Associate Note-Patient is A/Ox3, calm and cooperative, wore Bi-pap for 2.5hrs after Ativan given at 0045, otherwise on 2L NC, SpO2 >94%, has coarse rhonchi throughout lungs. SL until am, then 40meq K+ rider and 2gm Mg+ rider started as ordered.
[2019-03-18 07:07] LABS: Procalcitonin < 0.05 ng/mL (<0.5)
[2019-03-18 07:28] VITALS: BP 118/77; PULSE 73; RESP 22; TEMP 36.3; O2SAT 97
--- NOTE | 2019-03-18 09:19 | CM.DPC ---
DCP Cont: Patient has discharge orders for today. Went ahead and obtained med list, had Dr. Loaiza sign, and included prescriptions. Faxed this and DC summary to [facility]. Confirmed with Allyn at [facility] that apple picking supervisor time is 1:15. She is aware that CPAP is being delivered at 11:00, and hospice admit between 2:00 and 3:00. Confirmed with ICU nurse, Angela, that patient can go in a wheel-chair. She is aware of plan as well. Gave room number information to Allyn at [facility]. P: Patient is discharging today to [facility], and will be admitted to hospice. Main white board updated on time of apple picking supervisor. Camille Crump RN/Rigging Loft Mechanic
[2019-03-18] MEDS: PARoxetine 20 MG TABLET PO (09:40)
[2019-03-18] MEDS: MUPIROCIN 22 GM OINT 1 APPLIC TOP (09:40)
[2019-03-18] MEDS: DOXAZOSIN 4 MG TABLET PO (09:40)
[2019-03-18] MEDS: THIAMINE 100 MG TABLET PO (09:40)
[2019-03-18] MEDS: dilTIAZem CD 180 MG CAP PO (09:41)
[2019-03-18] MEDS: DOCUSATE 100 MG CAPSULE PO (09:41)
[2019-03-18] MEDS: guaiFENesin ER 600 MG TAB 1200 MG PO (09:41)
[2019-03-18] MEDS: ASPIRIN EC 81 MG TABLET PO (09:41)
[2019-03-18] MEDS: FLUDROCORTISONE 0.1 MG TABLET PO (09:41)
[2019-03-18] MEDS: predniSONE 10 MG TABLET 30 MG PO (09:42)
[2019-03-18] MEDS: PANTOPRAZOLE 40 MG TABLET PO (09:42)
[2019-03-18 09:55] VITALS: PULSE 76; RESP 20; O2SAT 96
[2019-03-18 11:36] VITALS: RESP 19; O2SAT 96
--- NOTE | 2019-03-18 12:55 | PC.NURSE ---
pt doing well and called report to [facility] in preparation for dc this afternoon- iv cath removed and pt comfortable at present- report called to [facility] and awaiting transportation
== END 2019-03-18 14:18 | disposition hospice, home (50) | DRG 189 ==
LOC: ED 17:30 → AC 18:02 → ICU 18:28
PROVIDERS: Nurse Practitioner Adult Health; Admitting Provider Internal Medicine; Emergency Provider Emergency Medicine; Visit Provider Internal Medicine
DX: J96.21 Acute and chronic respiratory failure with hypoxia (principal); E43 Unspecified severe protein-calorie malnutrition; J44.1 Chronic obstructive pulmonary disease with (acute) exacerbation; Z68.1 Body mass index [BMI] 19.9 or less, adult; E27.40 Unspecified adrenocortical insufficiency; I42.8 Other cardiomyopathies; J96.22 Acute and chronic respiratory failure with hypercapnia; E86.0 Dehydration; Z99.81 Dependence on supplemental oxygen; I10 Essential (primary) hypertension; F17.210 Nicotine dependence, cigarettes, uncomplicated; E78.5 Hyperlipidemia, unspecified; N40.1 Benign prostatic hyperplasia with lower urinary tract symptoms; R32 Unspecified urinary incontinence; I48.0 Paroxysmal atrial fibrillation; F10.20 Alcohol dependence, uncomplicated; F32.9 Major depressive disorder, single episode, unspecified; G89.29 Other chronic pain; Z22.322 Carrier or suspected carrier of Methicillin resistant Staphylococcus aureus
CPT/HCPCS: 36415; 36591; 36600; 71045; 73620; 80048; 80053; 82040; 82140; 82550; 82607; 82746; 82805; 83605; 83735; 83880; 84100; 84145; 84484; 85025; 87040; 87070; 87077; 87086; 87205; 87633; 87797; 93005; 93306; 94640; 94660; 94667; 94668; 96365; 96367; 96375; 97162; 97165; 99284; 99285; 99406; J0696; J1170; J2930; J3480; J7614